=== PATIENT | male | born 1965 | race Caucasian/White ===

== ENCOUNTER 2018-01-14 18:34 | Emergency (ER) | payer MEDICARE, SELFPAY ==
[2018-01-14 18:40] VITALS: BP 151/94; PULSE 74; RESP 16; TEMP 36.7; O2SAT 97
--- NOTE | 2018-01-14 19:01 | DI.CT_ITS ---
SYMPTOM/DIAGNOSIS: HEADACHE, RT SIDED NECK PAIN NONCONTRAST HEAD CT: Comparison is made with 10/22/15. A noncontrast cranial CT was performed. The ventricular system is normal in appearance. There is no evidence of an intracranial mass lesion. There is no evidence of a subdural or epidural hematoma. No focal areas of decreased attenuation are seen. CONCLUSION: Normal noncontrast Cranial CT. CTA BRAIN: CT angiography was performed with multi slice acquisition and multi planar and 3D reconstruction. Routine examination was performed. FINDINGS: The right internal carotid artery is unremarkable without evidence of significant stenosis, occlusion or aneurysm. The anterior cerebral arteries are unremarkable without significant stenosis, occlusion or aneurysm. The middle cerebral arteries are unremarkable without significant stenosis, occlusion or aneurysm. The posterior cerebral arteries are unremarkable without significant stenosis, occlusion or aneurysm. Vertebral arteries and basilar artery are unremarkable without significant stenosis, occlusion or aneurysm. IMPRESSION: Normal CTA of the brain. NECK CTA: CT angiography was performed with multi slice acquisition and multi planar and 3D reconstruction. The common carotid arteries are unremarkable without evidence of dissection, occlusion or stenosis. The internal carotid arteries are unremarkable without evidence of dissection, occlusion or significant stenosis. The external carotid arteries are unremarkable without evidence of occlusion or significant stenosis. The vertebral arteries are unremarkable without evidence of dissection, occlusion or significant stenosis. No acute fracture or dislocation is seen. The soft tissues are unremarkable. IMPRESSION: Normal CTA of the neck.
--- NOTE | 2018-01-14 19:10 | W.ED.GENAD ---
Discharge Plan Disposition Patient Disposition: HOME Condition: Improving Discharge Details Chief Complaint: Headache Clinical Impression: Headache, tension-type, Acute torticollis, Anxiety about health Primary Care Provider: Francisca Sawyer ED Provider: Phil Adams Home Meds and New Rx's Prescriptions: Continue diazepam 2 MG tablet 1 - 2 mg PO daily prn 60 Days Qty: 30 RF: 0 duloxetine [Cymbalta] 20 MG capsule,delayed release(DR/EC) 20 mg PO DAILY Qty: 90 RF: 3 Discharge Instructions Instructions: Tension Headache (ED), Spasmodic Torticollis (ED), Anxiety (ED) Additional Instructions: Feel free to return to the emergency department for any new or worsening symptoms otherwise follow-up with your primary care provider in 1 week for reassessment. Referrals: Francisca Sawyer DO [Primary Care Provider] - 1 week () Discharge Data Discharge Date/Time-TO BE ENTERED AT DEPARTURE: 01/14/18 21:35 Medical Decision Making MDM Narrative Medical decision making narrative: Patient presenting to the emergency department for chief complaint of headache and right-sided neck pain. Patient states that this is been going on for the past month and he has been put on a muscle relaxer for his neck but today had a worsening headache and very brief visual disturbance of the left eye which is now resolved. Patient denies any injury or trauma does state that he is very anxious about the pain on the right side of his neck. Physical exam is unremarkable for any neurological respiratory or cardiac findings patient does have tenderness to palpation of the soft tissue of the right side of the neck. I feel this is most likely torticollis I do feel imaging is warranted to rule out dissection. Given patient stating that he is having significant worsening of right-sided neck pain, headache, with brief vision changes is now resolved to plan on performing a head CT, CTA head and neck, and labs. This is been going on for a month and patient states significant family stressors there is also consideration of continued torticollis that has been evaluated by primary care and tension migraine headache causing the other symptoms. Pending results patient given 1 L IV fluids, ketorolac, and Benadryl. After review of head CT shows no intracranial findings and labs which are unremarkable and nondiagnostic patient sent over for CTA of the neck. Pending results of CTA head and neck patient reassessed states that he is having improvement of his symptoms and only has a mild headache with some discomfort to the right eyebrow but that he is starting to feel better. Did discuss with patient coronary diagnosis of tension migraine right-sided torticollis and that he should continue to use his muscle relaxants as prescribed by primary care. Patient states hesitancy toward using these during the day because they make him feel off discussed with patient that he could change the regimen and take these at night before bed to see if this helps with his symptoms. Patient states he is willing to try this modality. Patient records does show that patient suffers from significant anxiety disorder patient was placed on duloxetine within the last month for his anxiety related to back pain and neck pain. CTA shows no acute findings. Patient reassessed again states comfortability with discharge home with diagnosis of tension headache, anxiety, and right-sided torticollis. Patient informed that he may return at any point for any new or worsening symptoms otherwise to continue to take his medication as prescribed. After discussion of diagnosis and plan of care patient states no further needs, questions, or concerns at this time. HPI General Date/Time Provider Initiated Documentation: 01/14/18 18:34. Limitations to Documentation: no limitations. Information obtained by: patient. History of Present Illness described as severe, with intensity rated at 9. Quality is described as sharp, and is localized to the head. Patient neck. Patient started experiencing this month(s) (1) and it has been constant. No relieving factors improve symptom(s), No exacerbating factors reported . Patient notes no other symptoms.. Patient did receive the following treatments prior to arrival, NSAID Related Data Previous Rx's Medication Instructions Recorded diazepam 1 - 2 mg PO daily prn 60 Days #30 11/09/17 tab-cap duloxetine [Cymbalta] 20 mg PO DAILY #90 tab-cap 12/07/17 Allergies Allergy/AdvReac Type Severity Reaction Status Date / Time acetaminophen [From Tylenol] AdvReac Intermediate Makes pt's Unverified 11/09/17 14:10 head feel strange. cyclobenzaprine AdvReac Intermediate stomach Unverified 11/09/17 14:10 [Cyclobenzaprine] upset meclizine AdvReac Intermediate Worse Unverified 11/09/17 14:10 vertigo ondansetron AdvReac Intermediate nausea, Unverified 11/09/17 14:10 vomiting oxycodone AdvReac Intermediate Wicked bad Unverified 11/09/17 14:10 constipation promethazine AdvReac Intermediate pt states Unverified 11/09/17 14:10 it made him puke violently and very sleepy codeine [Codeine] AdvReac Mild Nausea Unverified 11/09/17 14:10 paroxetine AdvReac Mild ?? self Unverified 11/09/17 14:10 discontinued General Stated Complaint: Headache GWENDOLYN: 3 Review of Systems Constitutional Denies chills, Denies fever(s), Reports headache(s), Denies lethargy and Denies malaise Eyes Patient Reports change in vision (now resolved) and Reports loss of vision (left eye, briefly now resolve) ENT Denies vertigo, Denies dizziness, Denies ear discharge, Reports headache(s), Denies mouth pain and Denies nasal congestion Cardiovascular Denies chest pain, Denies syncope, Reports radiating jaw, neck or arm pain (right side) and Denies dyspnea Respiratory Denies cough and Denies dyspnea Gastrointestinal Denies abdominal pain, Denies diarrhea, Reports nausea and Denies vomiting Musculoskeletal Reports myalgias (right side of neck) Neurologic Reports as per HPI, Denies abnormal movements, Denies abnormal speech, Denies confusion, Denies vertigo, Denies dizziness, Denies syncope, Reports headache(s) and Reports loss of vision (left eye, briefly now resolve) Psychiatric Reports abnormal sleep pattern, Reports anxiety, Denies confusion and Reports other (Severe family stress) PFSH Family History Mother Diabetes Pancreatic cancer Father Essential hypertension Heart disease Hernia Sister Substance abuse Brother No problems noted. Medical History Congenital hearing loss GERD (gastroesophageal reflux disease) Hiatal hernia Migraine Social History Smoking/Tobacco Use Status: Never Surgical History Arthrocentesis, intermediate joint Colonoscopy - MAC (03/25/16) EGD - MAC (03/25/16) Excision, Lipoma (11/18/16) Repair of umbilical hernia (11/18/16) Exam Const General: cooperative, in distress (holding head and right neck) moderate and not ill appearing Orientation: alert, awake and oriented x3 HENPR Head: normal to inspection Ears: external ears normal General nose exam: external nose normal Mouth: oral mucosae normal Throat: posterior oropharynx normal Eyes General: appearance normal, both eyes and all related structures Visual Pozo: normal visual pozo by confrontation Alignment and Position: alignment normal Periorbital: periorbital findings normal Eyelids: eyelids normal Conjunctivae: conjunctivae normal Sclera: sclerae normal Cornea: corneas normal Pupils: PERRL EOM: EOM intact bilaterally Direct ophthalmoscopy: normal light reflex Neck Neck: normal visual inspection, full ROM, no lymphadenopathy, no meningeal signs, trachea midline, supple, negative Brudzinski's sign, negative Kernig's sign, tender (right) and torticollis (right ) Carotids: normal carotid upstroke and no bruits Lymphatic: no lymphadenopathy noted Resp Effort & Inspection: normal respiratory effort, able to speak in complete sentences and not labored Auscultation: clear to auscultation bilaterally Cardio Rate: regular rate Rhythm: regular rhythm Heart Sounds: S1 normal and S2 normal Back/Spine/Pelvis Cervical Spine: cervical ROM normal, cervical muscular tenderness (right), No cervical spasm and No cervical spinal tenderness Neuro General: alert, awake, oriented x3, gait normal, tone normal, moves all extremities, normal light touch, pain and propioception, no meningeal signs, no focal motor deficits and CN's II-XI intact bilaterally Cognition: normal cognition Speech: speech normal Gait: normal gait Motor: muscle tone normal throughout Sensory Exam: no sensory deficits noted Psych Appearance: grossly normal Mental Status: mental status grossly normal Speech and Movement: speech and movement normal Mood: anxious mood Affect: animated Attitude: cooperative Thought Process: normal Thought Content: normal Insight: insight good Judgment: judgment good Course Vital Signs Temperature 36.7 C 01/14/18 18:40 Pulse 74 01/14/18 18:40 Respiratory Rate 16 01/14/18 18:40 Blood Pressure 151/94 H 01/14/18 18:40 Pulse Oximetry 97 01/14/18 18:40 Temperature 36.7 C 01/14/18 18:40 Pulse 74 01/14/18 18:40 Respiratory Rate 16 01/14/18 18:40 Blood Pressure 151/94 H 01/14/18 18:40 Pulse Oximetry 97 01/14/18 18:40
--- NOTE | 2018-01-14 19:18 | ED.GENADUL_ITS ---
Discharge Plan Disposition Patient Disposition: HOME Condition: Improving Discharge Details Chief Complaint: Headache Clinical Impression: Headache, tension-type, Acute torticollis, Anxiety about health Primary Care Provider: Francisca Sawyer ED Provider: Phil Adams Home Meds and New Rx's Prescriptions: Continue diazepam 2 MG tablet 1 - 2 mg PO daily prn 60 Days Qty: 30 RF: 0 duloxetine [Cymbalta] 20 MG capsule,delayed release(DR/EC) 20 mg PO DAILY Qty: 90 RF: 3 Discharge Instructions Instructions: Tension Headache (ED), Spasmodic Torticollis (ED), Anxiety (ED) Additional Instructions: Feel free to return to the emergency department for any new or worsening symptoms otherwise follow-up with your primary care provider in 1 week for reassessment. Referrals: Francisca Sawyer DO [Primary Care Provider] - 1 week () Discharge Data Discharge Date/Time-TO BE ENTERED AT DEPARTURE: 01/14/18 21:35 Medical Decision Making MDM Narrative Medical decision making narrative: Patient presenting to the emergency department for chief complaint of headache and right-sided neck pain. Patient states that this is been going on for the past month and he has been put on a muscle relaxer for his neck but today had a worsening headache and very brief visual disturbance of the left eye which is now resolved. Patient denies any injury or trauma does state that he is very anxious about the pain on the right side of his neck. Physical exam is unremarkable for any neurological respiratory or cardiac findings patient does have tenderness to palpation of the soft tissue of the right side of the neck. I feel this is most likely torticollis I do feel imaging is warranted to rule out dissection. Given patient stating that he is having significant worsening of right-sided neck pain , headache, with brief vision changes is now resolved to plan on performing a head CT, CTA head and neck, and labs. This is been going on for a month and patient states significant family stressors there is also consideration of continued torticollis that has been evaluated by primary care and tension migraine headache causing the other symptoms. Pending results patient given 1 L IV fluids, ketorolac, and Benadryl. After review of head CT shows no intracranial findings and labs which are unremarkable and nondiagnostic patient sent over for CTA of the neck. Pending results of CTA head and neck patient reassessed states that he is having improvement of his symptoms and only has a mild headache with some discomfort to the right eyebrow but that he is starting to feel better. Did discuss with patient coronary diagnosis of tension migraine right-sided torticollis and that he should continue to use his muscle relaxants as prescribed by primary care. Patient states hesitancy toward using these during the day because they make him feel off discussed with patient that he could change the regimen and take these at night before bed to see if this helps with his symptoms. Patient states he is willing to try this modality. Patient records does show that patient suffers from significant anxiety disorder patient was placed on duloxetine within the last month for his anxiety related to back pain and neck pain. CTA shows no acute findings. Patient reassessed again states comfortability with discharge home with diagnosis of tension headache, anxiety, and right- sided torticollis. Patient informed that he may return at any point for any new or worsening symptoms otherwise to continue to take his medication as prescribed. After discussion of diagnosis and plan of care patient states no further needs, questions, or concerns at this time. HPI General Date/Time Provider Initiated Documentation: 01/14/18 18:34 . Limitations to Documentation: no limitations . Information obtained by: patient . History of Present Illness described as severe, with intensity rated at 9. Quality is described as sharp, and is localized to the head. Patient neck. Patient started experiencing this month(s) (1) and it has been constant. No relieving factors improve symptom(s), No exacerbating factors reported . Patient notes no other symptoms.. Patient did receive the following treatments prior to arrival, NSAID Related Data Previous Rx's Medication Instructions Recorded diazepam 1 - 2 mg PO daily prn 60 Days #30 11/09/17 tab-cap duloxetine [Cymbalta] 20 mg PO DAILY #90 tab-cap 12/07/17 Allergies Allergy/AdvReac Type Severity Reaction Status Date / Time acetaminophen [From Tylenol] AdvReac Intermediate Makes pt's Unverified 14:10 head feel strange. cyclobenzaprine AdvReac Intermediate stomach Unverified 11/09/17 14:10 [Cyclobenzaprine] upset meclizine AdvReac Intermediate Worse Unverified 11/09/17 14:10 vertigo ondansetron AdvReac Intermediate nausea, Unverified 11/09/17 14:10 vomiting oxycodone AdvReac Intermediate Wicked bad Unverified 11/09/17 14:10 constipation promethazine AdvReac Intermediate pt states Unverified 11/09/17 14:10 it made him puke violently and very sleepy codeine [Codeine] AdvReac Mild Nausea Unverified 11/09/17 14:10 paroxetine AdvReac Mild ?? self Unverified 11/09/17 14:10 discontinued General Stated Complaint: Headache GWENDOLYN: 3 Review of Systems Constitutional Denies chills, Denies fever(s), Reports headache(s), Denies lethargy and Denies malaise Eyes Patient Reports change in vision (now resolved) and Reports loss of vision ( left eye, briefly now resolve) ENT Denies vertigo, Denies dizziness, Denies ear discharge, Reports headache(s), Denies mouth pain and Denies nasal congestion Cardiovascular Denies chest pain, Denies syncope, Reports radiating jaw, neck or arm pain ( right side) and Denies dyspnea Respiratory Denies cough and Denies dyspnea Gastrointestinal Denies abdominal pain, Denies diarrhea, Reports nausea and Denies vomiting Musculoskeletal Reports myalgias (right side of neck) Neurologic Reports as per HPI, Denies abnormal movements, Denies abnormal speech, Denies confusion, Denies vertigo, Denies dizziness, Denies syncope, Reports headache(s ) and Reports loss of vision (left eye, briefly now resolve) Psychiatric Reports abnormal sleep pattern, Reports anxiety, Denies confusion and Reports other (Severe family stress) PFSH Family History Mother Diabetes Pancreatic cancer Father Essential hypertension Heart disease Hernia Sister Substance abuse Brother No problems noted. Medical History Congenital hearing loss GERD (gastroesophageal reflux disease) Hiatal hernia Migraine Social History Smoking/Tobacco Use Status: Never Surgical History Arthrocentesis, intermediate joint Colonoscopy - MAC (03/25/16) EGD - MAC (03/25/16) Excision, Lipoma (11/18/16) Repair of umbilical hernia (11/18/16) Exam Const General: cooperative, in distress (holding head and right neck) moderate and not ill appearing Orientation: alert, awake and oriented x3 HENMN Head: normal to inspection Ears: external ears normal General nose exam: external nose normal Mouth: oral mucosae normal Throat: posterior oropharynx normal Eyes General: appearance normal, both eyes and all related structures Visual Pozo: normal visual pozo by confrontation Alignment and Position: alignment normal Periorbital: periorbital findings normal Eyelids: eyelids normal Conjunctivae: conjunctivae normal Sclera: sclerae normal Cornea: corneas normal Pupils: PERRL EOM: EOM intact bilaterally Direct ophthalmoscopy: normal light reflex Neck Neck: normal visual inspection, full ROM, no lymphadenopathy, no meningeal signs , trachea midline, supple, negative Brudzinski's sign, negative Kernig's sign, tender (right) and torticollis (right ) Carotids: normal carotid upstroke and no bruits Lymphatic: no lymphadenopathy noted Resp Effort & Inspection: normal respiratory effort, able to speak in complete sentences and not labored Auscultation: clear to auscultation bilaterally Cardio Rate: regular rate Rhythm: regular rhythm Heart Sounds: S1 normal and S2 normal Back/Spine/Pelvis Cervical Spine: cervical ROM normal, cervical muscular tenderness (right), No cervical spasm and No cervical spinal tenderness Neuro General: alert, awake, oriented x3, gait normal, tone normal, moves all extremities, normal light touch, pain and propioception, no meningeal signs, no focal motor deficits and CN's II-XI intact bilaterally Cognition: normal cognition Speech: speech normal Gait: normal gait Motor: muscle tone normal throughout Sensory Exam: no sensory deficits noted Psych Appearance: grossly normal Mental Status: mental status grossly normal Speech and Movement: speech and movement normal Mood: anxious mood Affect: animated Attitude: cooperative Thought Process: normal Thought Content: normal Insight: insight good Judgment: judgment good Course Vital Signs Temperature 36.7 C 01/14/18 18:40 Pulse 74 01/14/18 18:40 Respiratory Rate 16 01/14/18 18:40 Blood Pressure 151/94 H 01/14/18 18:40 Pulse Oximetry 97 01/14/18 18:40 Temperature 36.7 C 01/14/18 18:40 Pulse 74 01/14/18 18:40 Respiratory Rate 16 01/14/18 18:40 Blood Pressure 151/94 H 01/14/18 18:40 Pulse Oximetry 97 01/14/18 18:40
[2018-01-14] MEDS: Normal Saline 1,000 ML 1000 ML IV (19:21)
[2018-01-14 19:24] LABS: Abs Immature Grans 0.02 k/cumm (0.0-0.09); Absolute Basophil Count 0.02 k/cumm (0.0-0.2); Absolute Eosinophil Count 0.16 k/cumm (0.0-0.7); Absolute Lymphocyte Count 2.45 k/cumm (1.2-3.4); Absolute Monocyte Count 0.72 k/cumm (0.11-0.7); Basophils % 0.3; Eosinophils % 2.3; HCT 49.7 % (40.0-50.0); HGB 16.7 g/dL (13.5-17.5); Immature Grans % 0.3; Lymphocytes % 35.7; Mean Corp. HGB Concentration 33.6 g/dL (32.0-36.0); Mean Corpuscular Hemoglobin 28.2 pg (27.0-33.0); Mean Platelet Volume 10.3 fL (8.0-11.0); Monocytes % 10.5; Neutrophils % 50.9; Platelet Count 225 x1000/uL (130-400); RBC 5.92 m/cumm (4.50-6.00); RBC Distribution Width 13.5 % (11.8-14.1); White Blood Cell Count 6.87 k/cumm (4.4-10.8)
[2018-01-14] MEDS: Ketorolac 30 MG/ML VIAL IVP (19:24)
[2018-01-14] MEDS: diphenhydrAMINE 50 MG/ML VIAL 25 MG IVP (19:25)
[2018-01-14 19:36] LABS: ALT 25 U/L (12-78); AST 14 U/L (15-37); Alkaline Phosphatase 88 U/L (46-116); Anion Gap 6.8 mmol/L (3-11); BUN 18 mg/dL (7-18); Bilirubin, Total 0.4 mg/dL (0.2-1.0); CO2 29.2 mmol/L (21.0-32.0); CREATININE 1.05 mg/dL (0.70-1.30); Calcium 8.8 mg/dL (8.5-10.1); Chloride 104 mmol/L (98-107); Glucose 92 mg/dL (70-100); Potassium 4.1 mmol/L (3.5-5.1); Sodium 140 mmol/L (136-145); Total Protein 7.4 g/dL (6.4-8.2)
--- NOTE | 2018-01-14 20:00 | DI.VRAD_ITS ---
EXAM: CT Head Without Intravenous Contrast CLINICAL HISTORY: 52 years old, male; Pain; Headache; Headache not specified TECHNIQUE: Axial computed tomography images of the head/brain without intravenous contrast. All CT scans at this facility use at least one of these dose optimization techniques: automated exposure control; mA and/or kV adjustment per patient size (includes targeted exams where dose is matched to clinical indication); or iterative reconstruction. Coronal and sagittal reformatted images were created and reviewed. COMPARISON: CT HEAD WITHOUT CONTRAST 10/22/2015 10:25 AM FINDINGS: Brain: No evidence of acute intracranial bleed. No mass lesion or mass effect. Amaya/white matter differentiation is unremarkable. Cerebellum is unremarkable. Cisterns are unremarkable. Brainstem is unremarkable. No suprasellar mass. Ventricles: Unremarkable. No ventriculomegaly. Bones/joints: Unremarkable. No acute fracture. Soft tissues: Unremarkable. Sinuses: Unremarkable as visualized. No acute sinusitis. Mastoid air cells: Unremarkable as visualized. No mastoid effusion. IMPRESSION: No evidence of pathology. Dictated and Authenticated by: Mayra Heath MD. Ordering:LILI WINSLOW MD
[2018-01-14] MEDS: Omnipaque 350 MG/ML 100 ML BTL IJ (20:29)
--- NOTE | 2018-01-14 20:38 | DI.VRAD_ITS ---
EXAM: CT Angiography Head With Intravenous Contrast CLINICAL HISTORY: 52 years old, male; Pain; Headache; Patient HX: Headache, rt. Sided neck pain TECHNIQUE: Axial computed tomographic angiography images of the head with intravenous contrast using CT angiography protocol. All CT scans at this facility use at least one of these dose optimization techniques: automated exposure control; mA and/or kV adjustment per patient size (includes targeted exams where dose is matched to clinical indication); or iterative reconstruction. MIP reconstructed images were created and reviewed. CONTRAST: 85 mL of Omnipaque 350 administered intravenously. COMPARISON: No relevant prior studies available. FINDINGS: Right internal carotid artery: No evidence of acute pathology. Intracranial segment is patent with no significant stenosis. No aneurysm. Right anterior cerebral artery: Unremarkable. No occlusion or significant stenosis. No aneurysm. Right middle cerebral artery: Unremarkable. No occlusion or significant stenosis. No aneurysm. Right posterior cerebral artery: Unremarkable. No occlusion or significant stenosis. No aneurysm. Right vertebral artery: Unremarkable as visualized. Left internal carotid artery: No evidence of acute pathology. Intracranial segment is patent with no significant stenosis. No aneurysm. Left anterior cerebral artery: Unremarkable. No occlusion or significant stenosis. No aneurysm. Left middle cerebral artery: Unremarkable. No occlusion or significant stenosis. No aneurysm. Left posterior cerebral artery: Unremarkable. No occlusion or significant stenosis. No aneurysm. Left vertebral artery: Unremarkable as visualized. Basilar artery: Unremarkable. No occlusion or significant stenosis. No aneurysm. IMPRESSION: Normal head CTA. EXAM: CT Angiography Neck With Intravenous Contrast CLINICAL HISTORY: 52 years old, male; Pain; Headache; Patient HX: Headache, rt. Sided neck pain TECHNIQUE: Axial computed tomographic angiography images of the neck with intravenous contrast using CT angiography protocol. All CT scans at this facility use at least one of these dose optimization techniques: automated exposure control; mA and/or kV adjustment per patient size (includes targeted exams where dose is matched to clinical indication); or iterative reconstruction. MIP reconstructed images were created and reviewed. CONTRAST: 85 mL of Omnipaque 350 administered intravenously. 85 mL of Omnipaque 350 administered intravenously. COMPARISON: CTA BRAIN AND NECK 05/04/2015 12:56 PM FINDINGS: VASCULATURE: Right common carotid artery: Unremarkable. No significant stenosis. No dissection or occlusion. Right internal carotid artery: Unremarkable. Extracranial segment is patent with no significant stenosis. No dissection or occlusion. Right external carotid artery: Unremarkable. No occlusion. Right vertebral artery: Unremarkable. No significant stenosis. No dissection or occlusion. Left common carotid artery: Unremarkable. No significant stenosis. No dissection or occlusion. Left internal carotid artery: Unremarkable. Extracranial segment is patent with no significant stenosis. No dissection or occlusion. Left external carotid artery: Unremarkable. No occlusion. Left vertebral artery: Unremarkable. No significant stenosis. No dissection or occlusion. NECK: Bones/joints: No acute fracture. No dislocation. Soft tissues: Unremarkable as visualized. No mass. CAROTID STENOSIS REFERENCE USING NASCET CRITERIA: % ICA stenosis = (1 - narrowest ICA diameter/diameter of distal cervical ICA) x 100. Mild - <50% stenosis. Moderate - 50-69% stenosis. Severe - 70-94% stenosis. Near occlusion - 95-99% stenosis. Occluded - 100% stenosis. IMPRESSION: Normal neck CTA. Dictated and Authenticated by: Mayra Heath MD. Ordering:LILI WINSLOW MD
[2018-01-14 21:33] VITALS: BP 138/80; PULSE 88; RESP 18; TEMP 36.9; O2SAT 99
== END 2018-01-14 21:35 | disposition home or self-care (01) ==
PROVIDERS: Emergency Provider Nurse Practitioner Family; PCP Student in an Organized Health Care Education/Training Program
DX: G44.209 Tension-type headache, unspecified, not intractable (principal); M43.6 Torticollis; F41.1 Generalized anxiety disorder
CPT/HCPCS: 70496; 70498; 80053; 96374; 96375; 99285; 70450; 85025; 99284; J1200; J1885; J3490

== ENCOUNTER 2018-07-03 18:39 | Emergency (ER) | payer MEDICARE, SELFPAY ==
[2018-07-03 18:45] VITALS: BP 154/89; PULSE 79; RESP 16; TEMP 36.7; O2SAT 97
--- NOTE | 2018-07-03 19:47 | ED.GENADUL_ITS ---
Discharge Plan Disposition Patient Disposition: HOME Discharge Details Chief Complaint: RespSymp Clinical Impression: Bronchitis Primary Care Provider: Francisca Sawyer ED Provider: Adrian Morrison Home Meds and New Rx's Prescriptions: Continued diphenhydramine HCl [Benadryl] 25 mg capsule 25 mg PO Q4H PRNRF: 0 diazepam 2 mg tablet 1 mg PO daily prn MDD 1 tablet 60 Days Qty: 10 RF: 1 Discharge Instructions Instructions: Acute Bronchitis (ED) Additional Instructions: Please drink plenty of fluids and allow for plenty of rest. Please contact your primary care physician to arrange follow-up. Return to the ER for any worsening or new concerning symptoms. Referrals: Francisca Sawyer DO [Primary Care Provider] - Medical Decision Making 19:49 -- 53-year-old male here with productive cough for the past 3-4 days. Patient is currently homeless. Lungs clear no respiratory distress on exam. Saturating well. He does have a productive sounding cough. Plan to obtain chest x-ray to assess for pneumonia 20:12 --chest x-ray interpreted by me: No consolidation. Suspect bronchitis. No indication for antibiotics at this time. Usual customary discharge instructions were provided. HPI General Mode of arrival: ambulatory . Date/Time Provider Initiated Documentation: 07/03/18 19:14 . Limitations to Documentation: no limitations . Information obtained by: patient . HPI Narrative: 53-year-old male here with chief complaint of cough. Patient has had cough intermittently productive of yellow sputum for the past 3 days. Patient notes when he coughs it causes some discomfort in his ears bilaterally. He also has some upper abdominal pain from all the coughing. He denies associated shortness of breath or chest pain. Cough is been severe at times. No modifiers. No fever. Related Data Home Medications Medication Instructions Recorded Confirmed diphenhydramine 25 mg capsule 25 mg PO Q4H PRN 03/25/18 07/03/18 diazepam 2 mg tablet 1 mg PO daily prn 60 Days #10 04/02/18 07/03/18 tab-cap MDD 1 tablet Previous Rx's Medication Instructions Recorded diazepam 2 mg tablet 1 mg PO daily prn 60 Days #10 04/02/18 tab-cap MDD 1 tablet Allergies Allergy/AdvReac Type Severity Reaction Status Date / Time acetaminophen [From Tylenol] AdvReac Intermediate Makes pt's Unverified 07/03/18 18:48 head feel strange. cyclobenzaprine AdvReac Intermediate stomach Unverified 07/03/18 18:48 [Cyclobenzaprine] upset meclizine AdvReac Intermediate Worse Unverified 07/03/18 18:48 vertigo ondansetron AdvReac Intermediate nausea, Unverified 07/03/18 18:48 vomiting oxycodone AdvReac Intermediate Wicked bad Unverified 07/03/18 18:48 constipation promethazine AdvReac Intermediate pt states Unverified 07/03/18 18:48 it made him puke violently and very sleepy codeine [Codeine] AdvReac Mild Nausea Unverified 07/03/18 18:48 paroxetine AdvReac Mild ?? self Unverified 07/03/18 18:48 discontinued General Stated Complaint: RespSymp GWENDOLYN: 3 Review of Systems Review of Systems All systems reviewed & are unremarkable except as noted in HPI and below Constitutional Denies fever(s) Respiratory Reports cough PFSH Medical History Congenital hearing loss GERD (gastroesophageal reflux disease) Hiatal hernia Migraine Surgical History Arthrocentesis, intermediate joint Colonoscopy - MAC (03/25/16) EGD - MAC (03/25/16) Excision, Lipoma (11/18/16) Repair of umbilical hernia (11/18/16) Family History Mother Diabetes Pancreatic cancer Father Essential hypertension Heart disease Hernia Sister Substance abuse Brother No problems noted. Social History Smoking and Tabacco status: Never Exam Const General: cooperative and no acute distress HENMT Head: normocephalic and atraumatic Mouth: moist mucous membranes Eyes Conjunctivae: normal conjunctivae Sclera: normal sclerae Neck Neck: trachea midline and supple Resp Effort & Inspection: able to speak in complete sentences, cough and not labored Auscultation: clear to auscultation bilaterally, no rales, no rhonchi and no wheezes Cardio Jugular venous pressure: no JVD Rate: regular rate and not tachycardic Rhythm: regular rhythm GI Palpation: soft, not firm, no guarding, no masses, not rigid and nontender Neuro General: alert, awake and tone normal Extrem General: no edema Psych Appearance: grossly normal Course Vital Signs Temperature 36.7 C 07/03/18 18:45 Pulse 79 07/03/18 18:45 Respiratory Rate 16 07/03/18 18:45 Blood Pressure 154/89 H 07/03/18 18:45 Pulse Oximetry 97 07/03/18 18:45 Temperature 36.7 C 07/03/18 18:45 Temperature Source Skin 07/03/18 18:45 Pulse 79 07/03/18 18:45 Respiratory Rate 16 07/03/18 18:45 Respiratory Effort Non-Labored 07/03/18 18:49 Respiratory Depth Normal 07/03/18 18:49 Blood Pressure 154/89 H 07/03/18 18:45 Blood Pressure Position Sitting 07/03/18 18:45 Pulse Oximetry 97 07/03/18 18:45 Oxygen Delivery Method Room Air 07/03/18 18:45 Oxygen Flow Rate 0 07/03/18 18:45 Pain Level 0 07/03/18 18:45
--- NOTE | 2018-07-03 20:04 | DI.RAD_ITS ---
SYMPTOM/DIAGNOSIS: COUGH PA AND LATERAL CHEST: Comparison is made with 09/07/17. The heart is normal in size. The lungs are clear. The mediastinal structures and pleura appear intact. CONCLUSION: Normal chest.
--- NOTE | 2018-07-03 20:32 | DI.VRAD_ITS ---
EXAM: XR Chest, 2 Views EXAM DATE/TIME: 07/03/2018 8:04 PM CLINICAL HISTORY: 53 years old, male; Signs and symptoms; Cough; Patient HX: HX of pneumonia TECHNIQUE: XR of the chest, 2 views. COMPARISON: CR CHEST 2 VIEWS PA,LAT 09/07/2017 2:50 PM FINDINGS: Lungs: Unremarkable. No consolidation. Pleural space: Unremarkable. No pleural effusion. No pneumothorax. Heart/Mediastinum: Unremarkable. No cardiomegaly. Bones/joints: Chronic osseous changes. IMPRESSION: No acute cardiopulmonary findings. Dictated and Authenticated by: Gary Vincent MD. Ordering:ULICES Campbell MD
== END 2018-07-03 20:25 | disposition home or self-care (01) ==
PROVIDERS: Emergency Provider Student in an Organized Health Care Education/Training Program; PCP Student in an Organized Health Care Education/Training Program
DX: J20.9 Acute bronchitis, unspecified (principal); Z59.0 Homelessness
CPT/HCPCS: 99283; 71046

== ENCOUNTER 2018-10-12 07:05 | Emergency (ER) | payer MEDICARE, SELFPAY ==
[2018-10-12 07:13] VITALS: BP 131/84; PULSE 69; RESP 16; TEMP 37; O2SAT 99
[2018-10-12 07:23] VITALS: RESP 14
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
--- NOTE | 2018-10-12 07:35 | W.ED.GENAD ---
Discharge Plan Disposition Patient Disposition: HOME Condition: Stable Discharge Details Chief Complaint: Orthopedic Clinical Impression: Neck muscle spasm Primary Care Provider: Francisca Sawyer ED Provider: Alistair Modi Home Meds and New Rx's Prescriptions: New prednisone 20 mg tablet 40 mg PO DAILY 5 Days Qty: 10 RF: 0 lidocaine [Lidoderm] 5 % adhesive patch,medicated 1 patch TP DAILY PRN (Reason: pain) Qty: 15 RF: 0 Continued omeprazole 20 mg capsule,delayed release(DR/EC) 20 mg PO QAM Qty: 90 RF: 0 acetaminophen [Arthritis Pain Relief (acetam)] 650 mg tablet extended release 650 mg PO BID Qty: 28 RF: 0 ibuprofen 400 mg tablet 400 mg PO BID PRN (Reason: pain) Qty: 28 RF: 0 diazepam 2 mg tablet 1 - 2 mg PO DAILY PRN (Reason: muscle spasm) Qty: 4 RF: 0 Discharge Instructions Additional Instructions: Take prednisone as prescribed. Continue your previously prescribed medications. Remove Lidoderm patch in 12 hours time. May repeat Lidoderm patch once daily for 12 hours with 12 hours interval break. Follow-up with physical therapy. Return if you develop chest pain, rash, difficulty breathing, or any other acute concerns Stand Alone Forms: Physical Therapy Referral Medical Decision Making 53-year-old male who is struggled with right suprascapular and trapezius pain over months to years time. 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 Sometimes it improves with Valium, but worsened today and associated with feeling pulling on the right side of his neck. Patient's vital signs are unremarkable. His motor and sensory testing are normal. It is most consistent with muscular spasm. He may have a radicular component to the discomfort as well. We will trial a burst of prednisone, apply a Lidoderm patch, I will prescribe him physical therapy. He is pre-standing plans to follow-up in primary care clinic HPI General Mode of arrival: ambulatory. Date/Time Provider Initiated Documentation: 10/12/18 07:06. Limitations to Documentation: no limitations. Information obtained by: patient. History of Present Illness 53 year old M presents to the emergency department with the chief complaint of Right shoulder and right suprascapular pain, described as moderate and similar to prior episodes, Quality is described as constant, and is localized to the right and upper extremity. Patient reports no radiation. Patient started experiencing this day(s) and it has been constant. No relieving factors improve symptom(s), No exacerbating factors reported . Patient notes denies chest pain, fever/chills, rash and shortness of breath. Patient did receive the following treatments prior to arrival, NSAID and cold therapy Related Data Home Medications Medication Instructions Recorded Confirmed omeprazole 20 mg capsule,delayed 20 mg PO QAM #90 tab-cap 07/09/18 10/04/18 release acetaminophen ER 650 mg 650 mg PO BID #28 tab 10/04/18 10/04/18 tablet,extended release diazepam 2 mg tablet 1 - 2 mg PO DAILY PRN #4 tab 10/04/18 10/04/18 ibuprofen 400 mg tablet 400 mg PO BID PRN #28 tab 10/04/18 10/04/18 lidocaine [Lidoderm] 1 patch TP DAILY PRN #15 each 10/12/18 prednisone 40 mg PO DAILY 5 Days #10 tab 10/12/18 Previous Rx's Medication Instructions Recorded omeprazole 20 mg capsule,delayed 20 mg PO QAM #90 tab-cap 07/09/18 release acetaminophen ER 650 mg 650 mg PO BID #28 tab 10/04/18 tablet,extended release diazepam 2 mg tablet 1 - 2 mg PO DAILY PRN #4 tab 10/04/18 ibuprofen 400 mg tablet 400 mg PO BID PRN #28 tab 10/04/18 lidocaine [Lidoderm] 1 patch TP DAILY PRN #15 each 10/12/18 prednisone 40 mg PO DAILY 5 Days #10 tab 10/12/18 Allergies Allergy/AdvReac Type Severity Reaction Status Date / Time acetaminophen [From Tylenol] AdvReac Intermediate Makes pt's Verified 10/04/18 10:34 head feel strange. cyclobenzaprine AdvReac Intermediate stomach Verified 10/04/18 10:34 [Cyclobenzaprine] upset meclizine AdvReac Intermediate Worse Verified 10/04/18 10:34 vertigo ondansetron AdvReac Intermediate nausea, Verified 10/04/18 10:34 vomiting oxycodone AdvReac Intermediate Wicked bad Verified 10/04/18 10:34 constipation promethazine AdvReac Intermediate pt states Verified 10/04/18 10:34 it made him puke violently and very sleepy codeine [Codeine] AdvReac Mild Nausea Verified 10/04/18 10:34 paroxetine AdvReac Mild ?? self Verified 10/04/18 10:34 discontinued General Stated Complaint: GenMedical GWENDOLYN: 4 Review of Systems Review of Systems Similar episodes in the past. 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 No fever, chills, rash. 6 systems reviewed and otherwise night PFSH Medical History Migraine (Chronic) Congenital hearing loss (Chronic) GERD (gastroesophageal reflux disease) (Chronic) Hiatal hernia (Chronic) Surgical History Arthrocentesis, intermediate joint (Resolved) Colonoscopy - MAC (Resolved 03/25/16) EGD - MAC (Resolved 03/25/16) Excision, Lipoma (Resolved 11/18/16) Repair of umbilical hernia (Resolved 11/18/16) Family History Mother Diabetes Pancreatic cancer Father Essential hypertension Heart disease Hernia Sister Substance abuse Brother No problems noted. Social History Smoking/Tobacco Use Status: Never Drug use: Never Do you feel safe in your relationship?: Yes Exam Narrative Exam Narrative: GEN: awake, alert, oriented 3. Pleasant, well groomed, interactive. HEAD: Normocephalic, atraumatic ENT: Mucous membranes moist, oropharynx unremarkable, External ear exam unremarkable EYES: PERRL, EOMI NECK: Full ROM, no LISA, no menigismus, right paraspinous muscular tenderness along the supraspinatus. CHEST/RESP: Nontender, clear to auscultation bilateral, no wheeze/rhonchi/rales CARDIOVASCULAR: RRR, no murmur, rub divina. 2+ Rad pulse bilateral ABDOMEN: Soft, nontender, no mass. +Bowel sounds EXT: Full ROM, no edema, no rash. Motor 5 out of 5 in the bilateral upper extremity. Sensation intact throughout. Neuro: Grossly normal neurologic exam, conversant, interactive. Psych: Speech fluent, thoughts congruent, affect normal Course Vital Signs Temperature 37.0 C 10/12/18 07:13 Pulse 69 10/12/18 07:13 Respiratory Rate 16 10/12/18 07:13 Blood Pressure 131/84 10/12/18 07:13 Pulse Oximetry 99 10/12/18 07:13 Temperature 37.0 C 10/12/18 07:13 Temperature Source Temporal Artery Scan 10/12/18 07:13 Pulse 69 10/12/18 07:13 Respiratory Rate 14 10/12/18 07:23 Respiratory Effort 10/12/18 07:23 Respiratory Depth Normal 10/12/18 07:23 Blood Pressure 131/84 10/12/18 07:13 Pulse Oximetry 99 10/12/18 07:13 Oxygen Delivery Method Room Air 10/12/18 07:13 Oxygen Flow Rate 0 10/12/18 07:13 Pain Level 6 10/12/18 07:13 Comment 10/12/18 07:13
--- NOTE | 2018-10-12 07:39 | ED.GENADUL_ITS ---
Discharge Plan Disposition Patient Disposition: HOME Condition: Stable Discharge Details Chief Complaint: Orthopedic Clinical Impression: Neck muscle spasm Primary Care Provider: Francisca Sawyer ED Provider: Alistair Modi Home Meds and New Rx's Prescriptions: New prednisone 20 mg tablet 40 mg PO DAILY 5 Days Qty: 10 RF: 0 lidocaine [Lidoderm] 5 % adhesive patch,medicated 1 patch TP DAILY PRN (Reason: pain) Qty: 15 RF: 0 Continued omeprazole 20 mg capsule,delayed release(DR/EC) 20 mg PO QAM Qty: 90 RF: 0 acetaminophen [Arthritis Pain Relief (acetam)] 650 mg tablet extended release 650 mg PO BID Qty: 28 RF: 0 ibuprofen 400 mg tablet 400 mg PO BID PRN (Reason: pain) Qty: 28 RF: 0 diazepam 2 mg tablet 1 - 2 mg PO DAILY PRN (Reason: muscle spasm) Qty: 4 RF: 0 Discharge Instructions Additional Instructions: Take prednisone as prescribed. Continue your previously prescribed medications. Remove Lidoderm patch in 12 hours time. May repeat Lidoderm patch once daily for 12 hours with 12 hours interval break. Follow-up with physical therapy. Return if you develop chest pain, rash, difficulty breathing, or any other acute concerns Stand Alone Forms: Physical Therapy Referral Medical Decision Making 53-year-old male who is struggled with right suprascapular and trapezius pain over months to years time. 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 Sometimes it improves with Valium, but worsened today and associated with feeling pulling on the right side of his neck. Patient's vital signs are unremarkable. His motor and sensory testing are normal. It is most consistent with muscular spasm. He may have a radicular component to the discomfort as well. We will trial a burst of prednisone, apply a Lidoderm patch, I will prescribe him physical therapy. He is pre-standing plans to follow-up in primary care clinic HPI General Mode of arrival: ambulatory . Date/Time Provider Initiated Documentation: 10/12/18 07:06 . Limitations to Documentation: no limitations . Information obtained by: patient . History of Present Illness 53 year old M presents to the emergency department with the chief complaint of Right shoulder and right suprascapular pain, described as moderate and similar to prior episodes, Quality is described as constant, and is localized to the right an d upper extremity. Patient reports no radiation. Patient started experiencing this day(s) and it has been constant. No relieving factors improve symptom(s), No exacerbating factors reported . Patient notes denies chest pain, fever/chills, rash and shortness of breath. Patient did receive the following treatments prior to arrival, NSAID and cold therapy Related Data Home Medications Medication Instructions Recorded Confirmed omeprazole 20 mg capsule,delayed 20 mg PO QAM #90 tab-cap 07/09/18 10/04/18 release acetaminophen ER 650 mg 650 mg PO BID #28 tab 10/04/18 10/04/18 tablet,extended release diazepam 2 mg tablet 1 - 2 mg PO DAILY PRN #4 tab 10/04/18 10/04/18 ibuprofen 400 mg tablet 400 mg PO BID PRN #28 tab 10/04/18 10/04/18 lidocaine [Lidoderm] 1 patch TP DAILY PRN #15 each 10/12/18 prednisone 40 mg PO DAILY 5 Days #10 tab 10/12/18 Previous Rx's Medication Instructions Recorded omeprazole 20 mg capsule,delayed 20 mg PO QAM #90 tab-cap 07/09/18 release acetaminophen ER 650 mg 650 mg PO BID #28 tab 10/04/18 tablet,extended release diazepam 2 mg tablet 1 - 2 mg PO DAILY PRN #4 tab 10/04/18 ibuprofen 400 mg tablet 400 mg PO BID PRN #28 tab 10/04/18 lidocaine [Lidoderm] 1 patch TP DAILY PRN #15 each 10/12/18 prednisone 40 mg PO DAILY 5 Days #10 tab 10/12/18 Allergies Allergy/AdvReac Type Severity Reaction Status Date / Time acetaminophen [From Tylenol] AdvReac Intermediate Makes pt's Verified 10/04/18 10:34 head feel strange. cyclobenzaprine AdvReac Intermediate stomach Verified 10/04/18 10:34 [Cyclobenzaprine] upset meclizine AdvReac Intermediate Worse Verified 10/04/18 10:34 vertigo ondansetron AdvReac Intermediate nausea, Verified 10/04/18 10:34 vomiting oxycodone AdvReac Intermediate Wicked bad Verified 10/04/18 10:34 constipation promethazine AdvReac Intermediate pt states Verified 10/04/18 10:34 it made him puke violently and very sleepy codeine [Codeine] AdvReac Mild Nausea Verified 10/04/18 10:34 paroxetine AdvReac Mild ?? self Verified 10/04/18 10:34 discontinued General Stated Complaint: GenMedical GWENDOLYN: 4 Review of Systems Review of Systems Similar episodes in the past. 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 No fever, chills, rash. 6 systems reviewed and otherwise night PFS Medical History Migraine (Chronic) Congenital hearing loss (Chronic) GERD (gastroesophageal reflux disease) (Chronic) Hiatal hernia (Chronic) Surgical History Arthrocentesis, intermediate joint (Resolved) Colonoscopy - MAC (Resolved 03/25/16) EGD - MAC (Resolved 03/25/16) Excision, Lipoma (Resolved 11/18/16) Repair of umbilical hernia (Resolved 11/18/16) Family History Mother Diabetes Pancreatic cancer Father Essential hypertension Heart disease Hernia Sister Substance abuse Brother No problems noted. Social History Smoking/Tobacco Use Status: Never Drug use: Never Do you feel safe in your relationship?: Yes Exam Narrative Exam Narrative: GEN: awake, alert, oriented 3. Pleasant, well groomed, interactive. HEAD: Normocephalic, atraumatic ENT: Mucous membranes moist, oropharynx unremarkable, External ear exam unremarkable EYES: PERRL, EOMI NECK: Full ROM, no LISA, no menigismus, right paraspinous muscular tenderness along the supraspinatus. CHEST/RESP: Nontender, clear to auscultation bilateral, no wheeze/rhonchi/rales CARDIOVASCULAR: RRR, no murmur, rub divina. 2+ Rad pulse bilateral ABDOMEN: Soft, nontender, no mass. +Bowel sounds EXT: Full ROM, no edema, no rash. Motor 5 out of 5 in the bilateral upper extremity. Sensation intact throughout. Neuro: Grossly normal neurologic exam, conversant, interactive. Psych: Speech fluent, thoughts congruent, affect normal Course Vital Signs Temperature 37.0 C 10/12/18 07:13 Pulse 69 10/12/18 07:13 Respiratory Rate 16 10/12/18 07:13 Blood Pressure 131/84 10/12/18 07:13 Pulse Oximetry 99 10/12/18 07:13 Temperature 37.0 C 10/12/18 07:13 Temperature Source Temporal Artery Scan 10/12/18 07:13 Pulse 69 10/12/18 07:13 Respiratory Rate 14 10/12/18 07:23 Respiratory Effort 10/12/18 07:23 Respiratory Depth Normal 10/12/18 07:23 Blood Pressure 131/84 10/12/18 07:13 Pulse Oximetry 99 10/12/18 07:13 Oxygen Delivery Method Room Air 10/12/18 07:13 Oxygen Flow Rate 0 10/12/18 07:13 Pain Level 6 10/12/18 07:13 Comment 10/12/18 07:13
[2018-10-12] MEDS: Lidocaine 5% Patch 1 PATCH TP (07:46)
== END 2018-10-12 07:45 | disposition home or self-care (01) ==
PROVIDERS: Emergency Provider Emergency Medicine; PCP Student in an Organized Health Care Education/Training Program
DX: M62.838 Other muscle spasm (principal)
CPT/HCPCS: 99283

== ENCOUNTER → 2018-11-26 08:03 | Outpatient (BNVA) | payer MEDICARE, SELFPAY | PROVIDERS: PCP Student in an Organized Health Care Education/Training Program; Visit Provider Urology | DX: N52.9 Male erectile dysfunction, unspecified (principal) | CPT/HCPCS: 99213 ==

== ENCOUNTER 2019-01-10 15:00 | Outpatient (CLI) | payer MEDICARE, SELFPAY ==
--- NOTE | 2019-01-10 14:15 | DI.RAD_ITS ---
SYMPTOMS/DIAGNOSIS: COUGH, R05, PLEURODYNIA, R07.81, SCREEN FOR HIATAL HERNIA, DIAPHRAGMATIC HERNIA, K44.9, SENSATION OF HIATAL HERNIA RESTRICTING DEEP BREATH PA AND LATERAL CHEST: The lungs are well expanded and free of infiltrate. There is no pleural effusion. The cardiovascular structures appear intact. There are minimal degenerative changes involving the spine. SUMMARY: There is no evidence of acute cardiopulmonary disease aside from minimal degenerative changes involving the dorsal spine. The study is unremarkable.
== END 2019-01-10 15:20 ==
PROVIDERS: PCP Student in an Organized Health Care Education/Training Program; Visit Provider Student in an Organized Health Care Education/Training Program
DX: R05 Cough (principal); R07.81 Pleurodynia; K44.9 Diaphragmatic hernia without obstruction or gangrene
CPT/HCPCS: 71046

== ENCOUNTER 2019-01-31 01:22 | Outpatient (CLI) | payer MEDICARE, SELFPAY ==
--- NOTE | 2019-01-31 07:55 | DI.US_ITS ---
EXAM: US THYROID CLINICAL HISTORY: neck discomfort; thyroid tender when palpated. TECHNIQUE: Ultrasound performed using standard protocol. COMPARISON: US SOFT TISS ABD WALL/LOW BACK from 01/31/2019 FINDINGS: The right thyroid lobe measures 3.6 x 1.6 x 1.4 cm and is acoustically homogeneous. Isthmus is 4.6 m m in thickness. Left thyroid lobe measures 4.1 x 1.8 x 1.3 cm and is acoustically homogeneous. Note made of an avascular cyst, which measures 4.7 x 3.0 x 3.5 mm and is avascular in the midpole. IMPRESSION: The soft tissues of neck are unremarkable. Evaluation of the thyroid reveals a 4.7 by 3.0 x 3.[address], is otherwise unremarkable.
--- NOTE | 2019-01-31 07:55 | DI.US_ITS ---
EXAM: US ABDOMEN CLINICAL HISTORY: increased discomfort, tenderness. TECHNIQUE: Ultrasound performed using standard protocol. COMPARISON: Cardiac from 07/01/2017 FINDINGS: The aorta and vena cava are normal. The liver is normal. Hepatopetal flow is noted in the portal vein . Gallbladder is unremarkable. There is no evidence of ductal dilatation. The pancreas is normal. The spleen is normal. The kidneys are normal. There is no evidence of abdominal free fluid. IMPRESSION: Normal abdominal ultrasound.
--- NOTE | 2019-01-31 07:55 | DI.US_ITS ---
EXAM: US SOFT TISS ABD WALL/LOW BACK CLINICAL HISTORY: midback pain; feels a mass inside, hx lipomas. TECHNIQUE: Ultrasound performed using standard protocol. COMPARISON: US ABDOMEN from 01/31/2019 FINDINGS: No visible abnormality is demonstrated involving the tissues of the abdominal wall or lower back.
== END 2019-01-31 01:42 ==
PROVIDERS: PCP Student in an Organized Health Care Education/Training Program; Visit Provider Student in an Organized Health Care Education/Training Program
DX: K42.9 Umbilical hernia without obstruction or gangrene (principal); M54.89 Other dorsalgia; E07.89 Other specified disorders of thyroid; K44.9 Diaphragmatic hernia without obstruction or gangrene; M79.9 Soft tissue disorder, unspecified; M54.2 Cervicalgia; E04.1 Nontoxic single thyroid nodule; R10.817 Generalized abdominal tenderness
CPT/HCPCS: 76536; 76700; 76705

== ENCOUNTER 2019-03-18 08:10 | Outpatient (CLI) | payer MEDICARE, SELFPAY ==
[2019-03-18 10:02] LABS: ALT 42 U/L (16-63); AST 17 U/L (15-37); Alkaline Phosphatase 79 U/L (46-116); Anion Gap 8.2 mmol/L (3-11); BUN 19 mg/dL (7-18); Bilirubin, Total 0.6 mg/dL (0.2-1.0); CO2 25.8 mmol/L (21.0-32.0); CREATININE 1.11 mg/dL (0.70-1.30); Calcium 8.9 mg/dL (8.5-10.1); Chloride 106 mmol/L (98-107); Glucose 96 mg/dL (74-106); Potassium 4.4 mmol/L (3.5-5.1); Sodium 140 mmol/L (136-145)
[2019-03-21 06:50] LABS: Vitamin D 25 Total 31.5 ng/ml (30-100)
== END 2019-03-18 08:30 ==
PROVIDERS: PCP Student in an Organized Health Care Education/Training Program; Visit Provider Student in an Organized Health Care Education/Training Program
DX: R42 Dizziness and giddiness; K90.9 Intestinal malabsorption, unspecified; E86.0 Dehydration; K21.0 Gastro-esophageal reflux disease with esophagitis; M89.8X9 Other specified disorders of bone, unspecified site; G43.909 Migraine, unspecified, not intractable, without status migrainosus; Z86.39 Personal history of other endocrine, nutritional and metabolic disease
CPT/HCPCS: 36415; 80053; 82306

== ENCOUNTER 2019-04-20 19:11 | Emergency (ER) | payer MEDICARE, SELFPAY ==
[2019-04-20] VITALS (33 sets, daily range): BP systolic 141–182; BP diastolic 78–110; PULSE 71–104; RESP 13–26; TEMP 36.9; O2SAT 96–99
--- NOTE | 2019-04-20 19:36 | ED.GENADUL_ITS ---
Discharge Plan Disposition Patient Disposition: HOME Condition: Good Discharge Details Chief Complaint: Abd Prob Clinical Impression: Abdominal pain Primary Care Provider: Francisca Sawyer ED Provider: Mika Velasquez [place] Meds and New Rx's Prescriptions: Continued ibuprofen 400 mg tablet 400 mg PO BID PRN (Reason: pain) Qty: 28 RF: 0 diazepam 2 mg tablet 1 mg PO DAILY PRN (Reason: muscle spasm, vertigo) Qty: 10 RF: 1 ranitidine HCl 150 mg Capsule 150 mg PO PRN PRNRF: 0 Discontinued hydroxyzine pamoate [Vistaril] 25 mg capsule 25 mg PO BID PRN (Reason: nausea and vomiting, anxiety) Qty: 30 RF: 0 Discharge Instructions Instructions: Abdominal Pain (ED) Additional Instructions: Laboratory studies and imaging are unremarkable tonight. [place] diet for the next couple of days. Contact primary care for follow-up. Return to ED for fever, vomiting, worsening pain. Referrals: Francisca Sawyer DO [Primary Care Provider] - Medical Decision Making <Alistair Modi MD - Last Filed: 04/20/19 19:45> 54-year-old male presents from home with his son. He states that after eating sausage this evening approximately 10 to 15 minutes later he developed the abrupt onset of right upper quadrant epigastric pain that has been constant. Denies vomiting, has not had a fever. States that he has had previous abdominal hernia repair with mesh. Arrives a temp of 36, pulse is 103, he is hypertensive and in discomfort at 182/110. Differential diagnosis in includes gastritis, pancreatitis, biliary colic, bowel obstruction. IV access established, patient given fluid bolus, referred for laboratories, EKG, CT of the abdomen. Patient offered analgesia which he declined. As the patient was seen just prior to change of shift, he will be signed out to oncoming physician, Dr. Velasquez. Please see his note regarding details of the patient's diagnostic findings and final impression. ECG Data Attestation: I personally reviewed and interpreted this ECG (s) as follows: Interpretation: Normal sinus rhythm, rate of 79, the QRS is narrow, no ST segment elevations <Mika Velasquez MD - Last Filed: 04/20/19 22:32> Patient signed out to me after presenting with abdominal pain. Labs and imaging were pending. His laboratory studies are unremarkable. Liver function, lipase, white count normal. CT scan is also unremarkable with no acute process. On repeat abdominal exam patient is nontender and feels much better. Will discharge home to follow-up with primary care if not better in a few days. [place] diet for the next couple of days. Return to ED for fever, worsening pain, vomiting. Lab Data Lab results reviewed: Yes I reviewed the patient's lab results. HPI <Alistair Modi MD - Last Filed: 04/20/19 19:45> General Mode of arrival: ambulatory . Date/Time Provider Initiated Documentation: 04/20/19 19:23 . Limitations to Documentation: no limitations . Information obtained by: patient and family . History of Present Illness 54 year old M presents to the emergency department with the chief complaint of Right to epigastric abdominal pain this evening, described as moderate and severe, Quality is described as constant, and is localized to the abdomen. Patient abdomen. Patient started experiencing this hour(s) and it has been constant. No relieving factors improve symptom(s), No exacerbating factors reported . Patient notes loss of appetite; denies chest pain, fever/chills, nausea/vomiting and shortness of breath. Patient did receive the following treatments prior to arrival, other (Ranitidine at home) Related Data Home Medications Medication Instructions Recorded Confirmed ibuprofen 400 mg tablet 400 mg PO BID PRN #28 tab 10/04/18 04/20/19 diazepam 2 mg tablet 1 mg PO DAILY PRN #10 tab 03/22/19 04/20/19 ranitidine HCl 150 mg PO PRN PRN 04/20/19 04/20/19 Previous Rx's Medication Instructions Recorded ibuprofen 400 mg tablet 400 mg PO BID PRN #28 tab 10/04/18 diazepam 2 mg tablet 1 mg PO DAILY PRN #10 tab 03/22/19 Allergies Allergy/AdvReac Type Severity Reaction Status Date / Time acetaminophen [From Tylenol] AdvReac Intermediate Makes pt's Verified 04/20/19 19:21 head feel strange. cyclobenzaprine AdvReac Intermediate stomach Verified 04/20/19 19:21 [Cyclobenzaprine] upset meclizine AdvReac Intermediate Worse Verified 04/20/19 19:21 vertigo ondansetron AdvReac Intermediate nausea, Verified 04/20/19 19:21 vomiting oxycodone AdvReac Intermediate Wicked bad Verified 04/20/19 19:21 constipation promethazine AdvReac Intermediate pt states Verified 04/20/19 19:21 it made him puke violently and very sleepy codeine [Codeine] AdvReac Mild Nausea Verified 04/20/19 19:21 paroxetine AdvReac Mild ?? self Verified 04/20/19 19:21 discontinued General Stated Complaint: Abd Prob GWENDOLYN: 3 Review of Systems <Alistair Modi MD - Last Filed: 04/20/19 19:45> Narrative: Denies vomiting, no fever, no change to bowel or bladder habits. States he has abdominal mesh from previous hernia repair. 8 systems reviewed and otherwise negative PFSH <Alistair Modi MD - Last Filed: 04/20/19 19:45> Medical History Congenital hearing loss (Chronic) Hearing aid in R ear Erectile dysfunction (Acute) GERD (gastroesophageal reflux disease) (Chronic) Hiatal hernia (Chronic) Hx Dx per surgery (older Dr. Mazariegos), but that it needs to be reviewed carefully. Mild (?) but could cause future problems per pt recollection. 12/2018 Migraine (Chronic) Surgical History Arthrocentesis, intermediate joint (Resolved) Colonoscopy - MAC (Resolved 03/25/16) EGD - MAC (Resolved 03/25/16) Excision, Lipoma (Resolved 11/18/16) RIGHT BACK Repair of umbilical hernia (Resolved 11/18/16) Dr Mazariegos, [facility] Social History Smoking/Tobacco Use Status: Never Drug use: Never Do you feel safe in your relationship?: Yes Exam <Alistair Modi MD - Last Filed: 04/20/19 19:45> Narrative Exam Narrative: GEN: awake, alert, oriented 3. Pleasant, well groomed, interactive. HEAD: Normocephalic, atraumatic ENT: Mucous membranes moist, oropharynx unremarkable, External ear exam unremarkable EYES: PERRL, EOMI NECK: Full ROM, no LISA, no menigismus CHEST/RESP: Nontender, clear to auscultation bilateral, no wheeze/rhonchi/rales CARDIOVASCULAR: RRR, no murmur, rub divina. 2+ Rad pulse bilateral ABDOMEN: Soft, epigastric to right upper quadrant tenderness on palpation, no mass. +Bowel sounds EXT: Full ROM, no edema, no rash Neuro: Grossly normal neurologic exam, conversant, interactive. Psych: Speech fluent, thoughts congruent, affect normal Course <Alistair Modi MD - Last Filed: 04/20/19 19:45> Vital Signs Vital signs: Vital Signs Temperature 36.9 C 04/20/19 19:17 Pulse 103 H 04/20/19 19:17 Respiratory Rate 26 H 04/20/19 19:17 Blood Pressure 182/110 H 04/20/19 19:17 Pulse Oximetry 99 04/20/19 19:17 Temperature 36.9 C 04/20/19 19:17 Temperature Source Skin 04/20/19 19:17 Pulse 103 H 04/20/19 19:17 Respiratory Rate 26 H 04/20/19 19:17 Blood Pressure 182/110 H 04/20/19 19:17 Blood Pressure Position Sitting 04/20/19 19:17 Pulse Oximetry 99 04/20/19 19:17 Oxygen Delivery Method Room Air 04/20/19 19:17 Oxygen Flow Rate 0 04/20/19 19:17 Pain Level 10 04/20/19 19:17 Sign Out <Alistair Modi MD - Last Filed: 04/20/19 19:45> Sign Out Data: Sign Out Comment: see note Last updated by Alistair Modi MD at 04/20/19 20:02
[2019-04-20] MEDS: Normal Saline 1,000 ML 1000 ML IV (19:49)
[2019-04-20] MEDS: Breeza Beverage 473 ML BTL PO ×2 (19:54→19:55)
[2019-04-20] MEDS: Omnipaque 350 MG/ML 50 ML BTL PO (19:55)
[2019-04-20 20:02] LABS: Abs Immature Grans 0.01 k/cumm (0.0-0.09); Absolute Basophil Count 0.02 k/cumm (0.0-0.2); Absolute Eosinophil Count 0.32 k/cumm (0.0-0.7); Absolute Monocyte Count 0.61 k/cumm (0.11-0.7); Absolute Neutrophil Count 3.64 k/cumm (1.2-6.7); Basophils % 0.3; Eosinophils % 4.7; HGB 15.8 g/dL (13.5-17.5); Immature Grans % 0.1; Lymphocytes % 32.4; Mean Corp. HGB Concentration 33.6 g/dL (32.0-36.0); Mean Corpuscular Hemoglobin 28.6 pg (27.0-33.0); Mean Platelet Volume 10.5 fL (8.0-11.0); Neutrophils % 53.5; Platelet Count 219 x1000/uL (130-400); RBC 5.53 m/cumm (4.50-6.00); RBC Distribution Width 13.9 % (11.8-14.1)
--- NOTE | 2019-04-20 20:08 | NUR.NOTE ---
1950-Nursing Note: pt started drinking oral contrast without incident.
[2019-04-20 20:14] LABS: ALT 40 U/L (16-63); AST 20 U/L (15-37); Albumin 3.9 g/dL (3.4-5.0); Alkaline Phosphatase 81 U/L (46-116); Anion Gap 7.3 mmol/L (3-11); BUN 19 mg/dL (7-18); Bilirubin, Total 0.3 mg/dL (0.2-1.0); CO2 30.7 mmol/L (21.0-32.0); CREATININE 1.16 mg/dL (0.70-1.30); Calcium 8.7 mg/dL (8.5-10.1); Chloride 104 mmol/L (98-107); Glucose 135 mg/dL (74-106); Lipase 116 U/L (73-393); Magnesium 1.8 mg/dL (1.8-2.4); Potassium 4.2 mmol/L (3.5-5.1); Sodium 142 mmol/L (136-145); Total Protein 7.5 g/dL (6.4-8.2)
[2019-04-20 20:15] LABS: Troponin I < 0.05 ng/Ml (<0.06)
[2019-04-20] MEDS: Omnipaque 350 MG/ML 100 ML BTL IJ (21:32)
--- NOTE | 2019-04-20 21:35 | DI.CT_ITS ---
EXAM: CT ABDOMEN PELVIS W CLINICAL HISTORY: Right upper quadrant to epigastric pain, bloating. TECHNIQUE: Imaging Protocol: Axial computed tomography images with coronal and sagittal reformatted images were created and reviewed CONTRAST MATERIAL: Intravenous: Omnipaque 350 Contrast volume:100 mL contrast route:IV - Oral: Yes COMPARISON: ABD PELVIS WITH CONTRAST from 11/20/2016 CHEST FOR PULMONARY EMBOLUS from 05/13/2017 FINDINGS: ABDOMEN: Lung Bases: Normal where visualized. Liver: Normal density. Small cysts are seen throughout the liver. No suspicious hepatic mass is seen . The portal, superior mesenteric and splenic veins are patent. Gallbladder and biliary tract: No radiodense calculus or dilation. Pancreas: Normal density, no abnormal calcifications or inflammatory process. Spleen: Normal. Kidneys: Normal size, contour and axis. No radiodense stones or obstructive uropathy. No masses seen. Adrenal glands: No masses seen. Abdominal Aorta: Mild atherosclerosis. PELVIS: Bladder: Symmetric distention, no gross wall thickening. Bowel: There diverticulosis of the colon. No evidence of acute diverticulitis. No findings to sugge st an acute appendicitis. Peritoneal cavity: No ascites, collection or mesenteric inflammatory response. Bones: Within normal limits. Reproductive organs: Within normal limits. Lymph nodes: Unremarkable. Impression: No evidence of an acute abdomen or pelvis. DATA REPOSITORY: All CT scans at this facility are submitted to the National Radiology Data Registry (NRDR) Dose Index Registry (DIR) with the [employer] (ACR). RADIATION OPTIMIZATION: All CT scans at this facility use at least one of these dose optimization te chniques: automated exposure control; mA and/or kV adjustment per patient size (includes targeted exa ms where dose is matched to clinical indication); or iterative reconstruction.
--- NOTE | 2019-04-20 22:14 | DI.VRAD_ITS ---
PROCEDURE INFORMATION: Exam: CT Abdomen And Pelvis With Contrast Exam date and time: 04/20/2019 7:37 PM Age: 54 years old Clinical indication: Abdominal pain; Generalized; Prior surgery; Surgery date: 6+ months; Surgery type: Hernia mesh TECHNIQUE: Imaging protocol: Computed tomography of the abdomen and pelvis with intravenous contrast. Radiation optimization: All CT scans at this facility use at least one of these dose optimization techniques: automated exposure control; mA and/or kV adjustment per patient size (includes targeted exams where dose is matched to clinical indication); or iterative reconstruction. Contrast material: [id number]; Contrast volume: 100 ml; Contrast route: IV RAC 18G; COMPARISON: CT ABD PELVIS WITH CONTRAST 20/11/2016 08:52 FINDINGS: Mediastinum: Hiatal hernia. Liver: Stable subcentimeter hepatic cysts. Gallbladder and bile ducts: Normal. No calcified stones. No ductal dilation. Pancreas: Normal. No ductal dilation. Spleen: Normal. No splenomegaly. Adrenals: Normal. No mass. Kidneys and ureters: Stable prominent left extrarenal pelvis without change from prior study. Stomach and bowel: Diverticulosis of the sigmoid colon. Diverticulosis. Appendix: No evidence of appendicitis. Intraperitoneal space: Unremarkable. No free air. No significant fluid collection. Vasculature: Unremarkable. No abdominal aortic aneurysm. Lymph nodes: Unremarkable. No enlarged lymph nodes. Bladder: Distended urinary bladder to the L5 level. Reproductive: Unremarkable as visualized. Bones/joints: Stable sclerotic changes right femoral neck. Soft tissues: Postsurgical changes of the umbilicus. IMPRESSION: 1. No acute findings. 2. Distended urinary bladder to the level of L5 vertebral body. Dictated and Authenticated by: Kimmy Green MD. Ordering:KATERINA Sainz MD
== END 2019-04-20 22:35 | disposition home or self-care (01) ==
PROVIDERS: Emergency Medicine; Emergency Provider Emergency Medicine; PCP Student in an Organized Health Care Education/Training Program
DX: R10.13 Epigastric pain (principal); R10.11 Right upper quadrant pain
CPT/HCPCS: 36415; 80053; 83690; 93005; 96360; 99285; 74177; 83735; 84484; 85025; 93010; 99284; J3490; Q9967

== ENCOUNTER → 2019-04-29 13:15 | Outpatient (BNVA) | payer MEDICARE, SELFPAY | PROVIDERS: PCP Student in an Organized Health Care Education/Training Program; Referring Provider Student in an Organized Health Care Education/Training Program; Visit Provider Urology | DX: N52.9 Male erectile dysfunction, unspecified (principal); R10.10 Upper abdominal pain, unspecified; R36.9 Urethral discharge, unspecified | CPT/HCPCS: 99213 ==

== ENCOUNTER 2019-05-25 09:14 | Emergency (ER) | payer MEDICARE, SELFPAY ==
[2019-05-25 09:19] VITALS: BP 135/87; PULSE 79; RESP 15; TEMP 36.5; O2SAT 97
--- NOTE | 2019-05-25 09:29 | ED.GENADUL_ITS ---
Discharge Plan Disposition Patient Disposition: HOME Condition: Stable Discharge Details Chief Complaint: Nk/Back Pain Clinical Impression: Lumbar strain Primary Care Provider: Francisca Sawyer ED Provider: Alistair Modi Home Meds and New Rx's Prescriptions: New prednisone 20 mg tablet 40 mg PO DAILY 5 Days Qty: 10 RF: 0 Continued ibuprofen 400 mg tablet 400 mg PO BID PRN (Reason: pain) Qty: 28 RF: 0 diazepam 2 mg tablet 1 mg PO DAILY PRN (Reason: muscle spasm, vertigo) Qty: 10 RF: 1 ranitidine HCl 150 mg Capsule 150 mg PO PRN PRNRF: 0 Discharge Instructions Instructions: Low Back Strain (ED) Additional Instructions: Remove Lidoderm patch in 12 hours time. Take prednisone as prescribed. Continue your regular medications. Continue to hydrate liberally with small, frequent sips of fluids to maintain hydration. Return to the emergency department for worsening pain, weakness or numbness of the lower extremity, change to bowel or bladder habits, or any other acute concerns Medical Decision Making 54-year-old male presents from home stating he awoke with right lumbar pain that radiates down his right leg at times. It is constant but worse with sitting. He has had no weakness, numbness. He states normal urination this morning. He has pre-standing musculoskeletal neck and back issues and took some of his home diazepam 2 mg as well as ibuprofen this morning. He arrives with normal vital signs. He is tender overlying right flank and right costovertebral angle. Differential diagnosis includes muscular strain, lumbago, kidney stone/renal colic. Patient had taken ibuprofen and diazepam, he was referred for urinalysis with positive hematuria. Referred for CT images: No acute findings, see formal report. Following imaging, patient noted to be sitting comfortably in a chair, in no significant distress. We will treat as muscular strain/Lumbago. Given the radiating patient to the leg, he may benefit from a short burst of steroid. Lidoderm patch placed and he may obtain further as [id number] medicine. He is stable and appropriate for discharge to home at this time. HPI General Mode of arrival: ambulatory . Date/Time Provider Initiated Documentation: 05/25/19 09:15 . Limitations to Documentation: no limitations . Information obtained by: patient . History of Present Illness 54 year old M presents to the emergency department with the chief complaint of Right lumbar pain that began this morning, described as moderate and similar to prior episodes, Quality is described as dull and constant, and is localized to the back and right. Patient distal. Patient started experiencing this hour(s) and it has been constant. Rest improves symptom(s), Other factors that worsen symptoms (Worse when sitting) . Patient notes denies fever/chills, loss of appetite, nausea/vomiting, syncope and weakness. Patient did receive the following treatments prior to arrival, NSAID Related Data Home Medications Medication Instructions Recorded Confirmed ibuprofen 400 mg tablet 400 mg PO BID PRN #28 tab 10/04/18 05/25/19 ranitidine HCl 150 mg PO PRN PRN 04/20/19 05/25/19 diazepam 2 mg tablet 1 mg PO DAILY PRN #10 tab 05/18/19 05/25/19 prednisone 40 mg PO DAILY 5 Days #10 tab 05/25/19 Previous Rx's Medication Instructions Recorded ibuprofen 400 mg tablet 400 mg PO BID PRN #28 tab 10/04/18 diazepam 2 mg tablet 1 mg PO DAILY PRN #10 tab 05/18/19 prednisone 40 mg PO DAILY 5 Days #10 tab 05/25/19 Allergies Allergy/AdvReac Type Severity Reaction Status Date / Time acetaminophen [From Tylenol] AdvReac Intermediate Makes pt's Verified 05/25/19 09:24 head feel strange. cyclobenzaprine AdvReac Intermediate stomach Verified 05/25/19 09:24 [Cyclobenzaprine] upset meclizine AdvReac Intermediate Worse Verified 05/25/19 09:24 vertigo ondansetron AdvReac Intermediate nausea, Verified 05/25/19 09:24 vomiting oxycodone AdvReac Intermediate Wicked bad Verified 05/25/19 09:24 constipation promethazine AdvReac Intermediate pt states Verified 05/25/19 09:24 it made him puke violently and very sleepy codeine [Codeine] AdvReac Mild Nausea Verified 05/25/19 09:24 paroxetine AdvReac Mild ?? self Verified 05/25/19 09:24 discontinued General Stated Complaint: Nk/Back Pain GWENDOLYN: 4 Review of Systems Narrative: No weakness. No fall or injury. No numbness or tingling. No fever or chills. 6 systems reviewed and otherwise negative [facility] Medical History Congenital hearing loss (Chronic) Hearing aid in R ear Erectile dysfunction (Acute) GERD (gastroesophageal reflux disease) (Chronic) Hiatal hernia (Chronic) Hx Dx per surgery (older Dr. Mazariegos), but that it needs to be reviewed carefully. Mild (?) but could cause future problems per pt recollection. 12/2018 Migraine (Chronic) Social History Smoking/Tobacco Use Status: Never Alcohol Intake: never Drug use: Never Do you feel safe at home: Yes Do you feel safe in your relationship?: Yes Exam Narrative Exam Narrative: GEN: awake, alert, oriented 3. Pleasant, well groomed, interactive. HEAD: Normocephalic, atraumatic ENT: Mucous membranes moist, oropharynx unremarkable, External ear exam unremarkable with hearing aids in place EYES: PERRL, EOMI NECK: Full ROM, no LISA, no menigismus CHEST/RESP: Nontender, clear to auscultation bilateral, no wheeze/rhonchi/rales CARDIOVASCULAR: RRR, no murmur, rub divina. 2+ Rad pulse bilateral Back: Right high lumbar paraspinous muscular discomfort with palpation. There is no midline tenderness, step-off or deformity. EXT: Full ROM, no edema, no rash. Motor 5 out of 5, sensation intact throughout. 2+ patellar reflex. Neuro: Grossly normal neurologic exam, conversant, interactive. Psych: Speech fluent, thoughts congruent, affect normal Course Vital Signs Vital signs: Vital Signs Temperature 36.5 C 05/25/19 09:19 Pulse 79 05/25/19 09:19 Respiratory Rate 15 05/25/19 09:19 Blood Pressure 135/87 05/25/19 09:19 Pulse Oximetry 97 05/25/19 09:19 Temperature 36.5 C 05/25/19 09:19 Temperature Source Temporal Artery Scan 05/25/19 09:19 Pulse 79 05/25/19 09:19 Respiratory Rate 15 05/25/19 09:19 Respiratory Effort Non-Labored 05/25/19 09:22 Blood Pressure 135/87 05/25/19 09:19 Blood Pressure Position Sitting 05/25/19 09:19 Pulse Oximetry 97 05/25/19 09:19 Oxygen Delivery Method Room Air 05/25/19 09:19 Oxygen Flow Rate 0 05/25/19 09:19 Pain Level 8 05/25/19 09:23
[2019-05-25 09:39] LABS: Bilirubin Negative (Negative); Blood Trace-lysed (Negative); Clarity Clear (Clear); Glucose Negative (Negative); Ketones Negative (Negative); Leukocyte Esterase Negative (Negative); Nitrite Negative (Negative); Specific Gravity 1.025 (1.005-1.025); Urobilinogen 0.2 EU/dL (Up TO 0.2)
[2019-05-25 09:59] LABS: Bacteria Negative HPF (Negative); Crystals Negative HPF (Negative); Epithelial Cells Negative HPF (Negative); WBC 0-2 HPF (0-5)
[2019-05-25 10:00] LABS: C & S Indicated? No; Casts Negative LPF (Negative); Mucus Trace (Negative)
--- NOTE | 2019-05-25 10:15 | DI.CT_ITS ---
EXAM: CT ABDOMEN PELVIS WO CLINICAL HISTORY: Right flank pain, hematuria TECHNIQUE: Noncontrast COMPARISON: CT ABDOMEN PELVIS W from 04/20/2019 FINDINGS: The lung bases are clear. The heart size is normal. Several low density lesions are again noted in the liver, likely representing cysts. The gallbladder, spleen, pancreas and adrenals are unremarkab le. There are parapelvic renal cysts, greater on the left. No renal calculi or hydronephrosis is se en. The prostate is mildly enlarged. There is mild bladder wall thickening. Diverticulosis is note d in the sigmoid colon. There is no evidence of diverticulitis. The appendix appears normal. There is no gastric or small bowel dilatation. The aorta is normal in diameter. IMPRESSION: Parapelvic renal cysts, left greater than right. No renal calculi or hydronephrosis.
== END 2019-05-25 10:43 | disposition home or self-care (01) ==
PROVIDERS: Emergency Provider Emergency Medicine; PCP Student in an Organized Health Care Education/Training Program
DX: S39.012A Strain of muscle, fascia and tendon of lower back, initial encounter (principal); X58.XXXA Exposure to other specified factors, initial encounter
CPT/HCPCS: 99284; 74176; 81003; 81015; 99283

== ENCOUNTER 2019-05-31 19:15 | Emergency (ER) | payer MEDICARE, SELFPAY ==
[2019-05-31 19:26] VITALS: BP 146/91; PULSE 80; RESP 14; TEMP 36.7; O2SAT 97
--- NOTE | 2019-05-31 20:10 | ED.GENADUL_ITS ---
Discharge Plan Disposition Patient Disposition: HOME Condition: Good Discharge Details Chief Complaint: Nk/Back Pain Clinical Impression: Spasm of muscle of lower back Primary Care Provider: Francisca Sawyer ED Provider: Mika Velasquez Meds and New Rx's Prescriptions: New methocarbamol 500 mg tablet 1,000 mg PO QID Qty: 40 RF: 0 ibuprofen 600 mg tablet 600 mg PO TID Qty: 15 RF: 0 Changed ranitidine HCl 150 mg Capsule 150 mg PO BID Qty: 30 RF: 0 Discontinued ibuprofen 400 mg tablet 400 mg PO BID PRN (Reason: pain) Qty: 28 RF: 0 diazepam 2 mg tablet 1 mg PO DAILY PRN (Reason: muscle spasm, vertigo) Qty: 10 RF: 1 Discharge Instructions Instructions: Muscle Spasm (ED) Additional Instructions: Discontinue the diazepam and start using the methocarbamol for spasm. Change ibuprofen dose to 600 mg three times a day with food. Take ranitidine twice a day for stomach while taking the ibuprofen. Try heat and gentle stretching to help loosen up muscles. Massage may help as well. Contact your PCP for follow up. Return to ED for bladder or bowel problems, weakness in legs, numbness in legs, fever, other concerns. Referrals: Francisca Sawyer DO [Primary Care Provider] - Discharge Data Discharge Date/Time-TO BE ENTERED AT DEPARTURE: 05/31/19 20:45 Medical Decision Making Patient with continued spasm and pain in the lower back. Seen last week for same. Stone study CT at that time negative. Has followed up with chiropractic not but not primary care. Reports that the diazepam and ibuprofen is not helping. Lidocaine patches do not seem to help. Does not want narcotics because they make him ill. Wants to try something else for spasm. Will discontinue the diazepam. Will start methocarbamol. Continue ibuprofen 3 times a day with food and be sure to take his ranitidine twice a day while doing so. Gentle stretching and heat recommended. Follow-up with primary care. Return to ED for any neurologic changes, bladder or bowel dysfunction, fever, other concerns or problems. Medical Records Medical records reviewed: Yes I reviewed the patient's medical records. HPI General Mode of arrival: ambulatory . Date/Time Provider Initiated Documentation: 05/31/19 19:37 . Limitations to Documentation: no limitations . Information obtained by: patient, RN notes reviewed and old records reviewed . HPI Narrative: Patient presents to ED with continued lower back pain. Patient seen here last week for same. Stone study negative. [place] to be lumbar strain and has been using diazepam, ibuprofen. He was placed on a prednisone burst. He has not followed up with primary care but did see his chiropractor today. He occasionally has some sharp shooting pain down the back of his leg on occasion but not consistently. There is no bladder or bowel dysfunction. There is no numbness or weakness. Reports the pain as being upper to mid lumbar area. No abdominal pain. No vomiting or diarrhea. He has been Jorge L bandage holding ice to his right lower lumbar area but reports the pain being up higher and more central. Related Data Home Medications Medication Instructions Recorded Confirmed ibuprofen 600 mg PO TID #15 tab 05/31/19 methocarbamol 1,000 mg PO QID #40 tab 05/31/19 ranitidine HCl 150 mg PO BID #30 tab 05/31/19 Previous Rx's Medication Instructions Recorded ibuprofen 600 mg PO TID #15 tab 05/31/19 methocarbamol 1,000 mg PO QID #40 tab 05/31/19 ranitidine HCl 150 mg PO BID #30 tab 05/31/19 Allergies Allergy/AdvReac Type Severity Reaction Status Date / Time acetaminophen [From Tylenol] AdvReac Intermediate Makes pt's Verified 05/25/19 09:24 head feel strange. cyclobenzaprine AdvReac Intermediate stomach Verified 05/25/19 09:24 [Cyclobenzaprine] upset meclizine AdvReac Intermediate Worse Verified 05/25/19 09:24 vertigo ondansetron AdvReac Intermediate nausea, Verified 05/25/19 09:24 vomiting oxycodone AdvReac Intermediate Wicked bad Verified 05/25/19 09:24 constipation promethazine AdvReac Intermediate pt states Verified 05/25/19 09:24 it made him puke violently and very sleepy codeine [Codeine] AdvReac Mild Nausea Verified 05/25/19 09:24 paroxetine AdvReac Mild ?? self Verified 05/25/19 09:24 discontinued General Stated Complaint: Nk/Back Pain GWENDOLYN: 4 Review of Systems Narrative: As documented in HPI otherwise negative as below. Const: no fever, chills, weakness Resp: no cough, SOB, pleuritic pain CV: no CP, diaphoresis, edema, syncope GI: no abdominal pain, nausea, vomiting, diarrhea Neuro: no headache, numbness, focal weakness, confusion PFSH Social History Smoking/Tobacco Use Status: Never Alcohol Intake: never Drug use: Never Substance use type: does not use Do you feel safe at home: Yes Do you feel safe in your relationship?: Yes Exam Narrative Exam Narrative: Vitals: Afebrile. Slight elevated blood pressure otherwise normal vitals and room air pulse ox. Const: WDWN male in NAD. HEENT: NC/AT. Normal facial exam. Eyes: Normal conjunctiva and sclera. Neck: Supple. Trachea midline. Lungs: Normal respiratory effort. Back: No CVAT. Limited ROM of lower back due to pain. No spine tenderness. Upper to mid lumbar paraspinal spasm and tenderness noted. Neuro: A+O x 3. Normal speech, mentation, gait. Cranial nerves II - XII grossly intact. No gross motor or sensory deficit. Normal strength and sensation in LE. Skin: Warm and dry without rash. Course Vital Signs Vital signs: Vital Signs Temperature 98.1 F 05/31/19 19:26 Pulse 80 05/31/19 19:26 Respiratory Rate 14 05/31/19 19:26 Blood Pressure 146/91 H 05/31/19 19:26 Pulse Oximetry 97 05/31/19 19:26 Temperature 98.1 F 05/31/19 19:26 Temperature Source Tympanic 05/31/19 19:26 Pulse 80 05/31/19 19:26 Respiratory Rate 14 05/31/19 19:26 Respiratory Effort Non-Labored 05/31/19 19:30 Blood Pressure 146/91 H 05/31/19 19:26 Pulse Oximetry 97 05/31/19 19:26 Oxygen Delivery Method Room Air 05/31/19 19:26 Oxygen Flow Rate 0 05/31/19 19:26 Pain Level 10 05/31/19 19:30 Comment 05/31/19 19:26
[2019-05-31] MEDS: Methocarbamol 500 MG TAB 1000 MG PO (20:46)
--- NOTE | 2019-05-31 20:47 | NUR.NOTE ---
Nursing Note: Per MD order. PT DC with Hilario. Instructions with teach back provided prior to DC.
== END 2019-05-31 20:45 | disposition home or self-care (01) ==
PROVIDERS: Emergency Provider Emergency Medicine; PCP Student in an Organized Health Care Education/Training Program
DX: M62.830 Muscle spasm of back (principal)
CPT/HCPCS: 99283

== ENCOUNTER 2020-07-05 03:23 | Outpatient (CLI) | payer MEDICARE, SELFPAY ==
[2020-07-05 12:09] LABS: HCT 49.6 % (40.0-50.0); HGB 16.3 g/dL (13.5-17.5); MCH 28.4 pg (27.0-33.0); MCHC 32.9 % (32.0-36.0); MCV 86.4 fL (80-95); Platelet Count 218 10^3/uL (130-400); RBC 5.74 10^6/uL (4.36-5.78); RDW 13.4 % (11.8-14.1); RDW-SD 42.8 fL; WBC 7.77 10^3/uL (4.4-10.8)
[2020-07-05 12:43] LABS: ALT 48 U/L (16-63); AST 18 U/L (15-37); Albumin 4.1 g/dL (3.4-5.0); Alkaline Phosphatase 79 U/L (46-116); Anion Gap 6.8 mmol/L (3-11); BUN 18 mg/dL (7-18); Bilirubin, Total 0.5 mg/dL (0.2-1.0); CO2 30.2 mmol/L (21.0-32.0); CREATININE 1.2 mg/dL (0.70-1.30); Calcium 9.3 mg/dL (8.5-10.1); Calculated LDL 180 mg/dL (<100); Chloride 103 mmol/L (98-107); Cholesterol 258 mg/dL (<200); Glucose 82 mg/dL (74-106); HDL Cholesterol 53 mg/dL (40-60); Potassium 4.7 mmol/L (3.5-5.1); Sodium 140 mmol/L (136-145); Total Protein 7.5 g/dL (6.4-8.2); Triglyceride 125 mg/dL (<150)
== END 2020-07-05 03:24 | disposition home or self-care (01) ==
LOC: LOS 03:24
PROVIDERS: PCP Student in an Organized Health Care Education/Training Program; Visit Provider Student in an Organized Health Care Education/Training Program
DX: E78.2 Mixed hyperlipidemia (principal); R42 Dizziness and giddiness; M79.18 Myalgia, other site
CPT/HCPCS: 36415; 80053; 80061; 85027

== ENCOUNTER 2020-07-16 03:25 | Outpatient (CLI) | payer MEDICARE, SELFPAY ==
[2020-07-16 10:08] LABS: Source Nasal/Nares
[2020-07-16 12:35] LABS: COVID-19 PCR Negative (Negative)
== END 2020-07-16 03:26 | disposition home or self-care (01) ==
LOC: LBO 03:26
PROVIDERS: PCP Student in an Organized Health Care Education/Training Program; Visit Provider Family Medicine
DX: Z20.822 Contact with and (suspected) exposure to COVID-19 (principal); Z01.818 Encounter for other preprocedural examination
CPT/HCPCS: 87635

== ENCOUNTER 2020-07-17 01:45 | Outpatient (CLI) | payer MEDICARE, SELFPAY ==
--- NOTE | 2020-07-17 07:15 | DI.US_ITS ---
EXAM: US CAROTID CLINICAL HISTORY: dizziness,vertigo,r42. TECHNIQUE: Ultrasound carotids performed using grayscale, color-flow, and spectral Doppler imaging. COMPARISON: No exams were available for comparison FINDINGS: RIGHT CAROTID ARTERY: Plaque: None Velocity elevation: None. LEFT CAROTID ARTERY: Plaque: Soft plaque in the left carotid bulb. Velocity elevation: None. VERTEBRAL ARTERIES: Antegrade flow. Measurements: R Bulb: 91.3cm/s PS / 23.1cm/s ED R CCA: 97.7cm/s PS / 21.2cm/s ED R ECA: 122.1cm/s PS / 24.4cm/s ED R ICA Prox: 76.8cm/s PS /24.8cm/s ED R ICA Mid: 81.8cm/s PS / 32.2cm/s ED R ICA Distal: 108.2cm/s PS /37.2cm/s ED R Vert: 45.7cm/s PS / 14.5cm/s ED R SVR: 1.11 R DVR: 1.75 L Bulb: 90.4cm/s PS /24.6cm/s ED L CCA: 111.3cm/s PS / 30.4cm/s ED L ECA: 118.6cm/s PS /23.9cm/s ED L ICA Prox:96.9cm/s PS / 26.8cm/s ED L ICA Mid: 86.8cm/sPS / 30.4cm/s ED L ICA Distal: 75.2cm/s PS / 28.9cm/s ED L Vert: 59.3cm/s PS / 16.6cm/s ED L SVR: 0.87 L DVR: 0.88 IMPRESSION: No evidence for hemodynamically significant carotid stenosis. Criteria for Carotid Stenosis: Normal: ICA PSV <125 cm/s no plaque or intimal thickening is visible. <50% stenosis: ICA PSV <125 cm/s and plaque or intimal thickening is visible. 50-69% stenosis: ICA PSV is 125-250 cm/s and plaque is visible. >70% stenosis to near occlusion: ICA PSV >250 cm/s with visible plaque and luminal narrowing. DATA REPOSITORY:
== END 2020-07-17 02:05 ==
PROVIDERS: PCP Student in an Organized Health Care Education/Training Program; Visit Provider Student in an Organized Health Care Education/Training Program
DX: R42 Dizziness and giddiness (principal); R06.02 Shortness of breath; R06.09 Other forms of dyspnea
CPT/HCPCS: 94060; 93880

== ENCOUNTER 2020-07-17 04:03 | Outpatient (CLI) | payer MEDICARE, SELFPAY ==
[2020-07-17] MEDS: Inhaler, Assist Device 1 EACH MC (11:24)
[2020-07-17] MEDS: Albuterol HFA 18 GM 200 PUFF INH IH (11:24)
--- NOTE | 2020-07-23 16:27 | W.PFT ---
Date of service: 07/17/20 Time of Service: 10:09 Pulmonary Function Test Result Interpretation Spirometry: No evidence of obstructive airways disease, no bronchodilator response Impression Normal spirometry Clinical Correlation therefore is recommended.
== END 2020-07-17 04:04 | disposition home or self-care (01) ==
LOC: RT 04:03
PROVIDERS: PCP Student in an Organized Health Care Education/Training Program; Visit Provider Student in an Organized Health Care Education/Training Program
DX: R06.02 Shortness of breath (principal); R06.09 Other forms of dyspnea
CPT/HCPCS: 94060

== ENCOUNTER → 2020-08-21 09:09 | Outpatient (BNVA) | payer MEDICARE, SELFPAY | PROVIDERS: PCP Student in an Organized Health Care Education/Training Program; Referring Provider Student in an Organized Health Care Education/Training Program; Visit Provider Surgery | DX: K21.9 Gastro-esophageal reflux disease without esophagitis (principal); M62.08 Separation of muscle (nontraumatic), other site | CPT/HCPCS: 99203; 99215 ==

== ENCOUNTER 2020-11-21 02:46 | Outpatient (CLI) | payer MEDICARE, SELFPAY ==
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
--- NOTE | 2020-11-21 08:00 | DI.RAD_ITS ---
Exam(s) XR SACRUM COCCYX EXAM: XR SACRUM COCCYX CLINICAL HISTORY: r/o Fx, evaluate spacing, r/o bony path,ACUTE COCCYGEAL PAIN,M53.3. TECHNIQUE: 2D digital imaging was performed. COMPARISON: No exams were available for comparison FINDINGS: No evidence of fracture. No osseous lesion. No radiopaque foreign body. No obvious radiographic ev idence of osteomyelitis. IMPRESSION: No significant radiograph findings in the sacrum and coccyx. DATA REPOSITORY: RADIATION DOSE DELIVERED:
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
--- NOTE | 2020-11-21 16:47 | DI.VRAD_ITS ---
PROCEDURE INFORMATION: Exam: XR Sacrum and Coccyx, 2 or More Views Exam date and time: 11/21/2020 8:01 AM Age: 55 years old Clinical indication: Other: Evaluate spacing, ; patient HX: R/O bony path, acute coccygeal pain TECHNIQUE: Imaging protocol: XR of the sacrum and coccyx, 2 or more views. Total images: 4 COMPARISON: No relevant prior studies available. FINDINGS: Bones/joints: Normal. No acute fracture. Soft tissues: Normal. IMPRESSION: No acute findings. Dictated and Authenticated by: Pete Moore MD. Ordering:MALENA Espinosa MD
== END 2020-11-21 03:06 ==
LOC: PRC 02:47 → DI 08:00
PROVIDERS: PCP Student in an Organized Health Care Education/Training Program; Visit Provider Student in an Organized Health Care Education/Training Program
DX: R04.2 Hemoptysis (principal); M53.3 Sacrococcygeal disorders, not elsewhere classified; Z03.89 Encounter for observation for other suspected diseases and conditions ruled out
CPT/HCPCS: 71046; 72220

== ENCOUNTER 2021-03-19 00:10 | Outpatient (CLI) | payer MEDICARE, SELFPAY ==
--- NOTE | 2021-03-19 09:00 | ETT_ITS ---
APPROVED REPORT Exam: Exercise Treadmill Patient Location: Out-Patient Room/Bed: Stress Nurse: Tiffany Crespo RN Ordering Provider:ZOË WHITE, Contact Number: [phone] BMI: 30.26 Baseline Rhythm: Sinus Rhythm Comment: slight diffuse ST elevations Indications: SOB, FAMILY H/O ASCVD, INCREASED BLOOD PRESSURE Medical History Medical History: Dizzines, ED, Migraines, GERD, Hiatal hernia, Congenital hearing loss, Raynauds synd yayo, HLD, Anxiety Cardiac Medications: None, Allergies: Codeine, Oxycodone, Acetaminophen, Paroxetine, Promethazine, Cyclobenzaprine, Meclizine, O ndansetron Cardiac Risk Factors: FHX of CAD, Hyperlipidemia Previous Cardiac Procedures: None Pretest Chest Pain Characteristics: No chest pain, no dyspnea Exercise History: Physically active (walks often) Physical Disabilities: None Lung Sounds: Clear to auscultation Heart Sounds: Regular Stress Test Details Test: Exercise stress testing was performed using a Malik protocol. Rest Stress HR Resting HR Supine: 77 bpm Max Heart Rate (APMHR): 164 bpm Resting HR Standin bpm Target HR (85% APMHR): 139 bpm Max HR Achieved: 141 bpm % of APMHR: 85 Recovery HR: 94 bpm HR response to stress: Normal HR response to stress BP Resting BP Supine: 148/90 mmHg Resting BP Standin/90 mmHg Max BP: 202/92 mmHg Recovery BP: 164/84 mmHg BP response to stress: Normal blood pressure response to stress. ECG Resting ECG: Sinus Rhythm, mild diffuse ST elevations Ectopy: none Stress ECG: Sinus Tachycardia ST Change: No significant ST segment changes noted Arrhythmia: PACs Recovery ECG: Sinus Rhythm Recovery ST Change: No significant ST segment changes noted Recovery Arrhythmia: frequent PACs Clinical Reason for Termination: Leg fatigue, leg cramping Stress Symptoms: Leg tightness and cramping, Head pounding Exercise duration: 5 min3 sec Exercise capacity: 7.05 METs Petersen Treadmill Score: 4 Rate Pressure Product: 19308 Stress ECG Conclusion 1. Resting electrocardiogram showed voltage for left ventricular hypertrophy 2. Patient exercised on a Malik protocol and completed a workload of 7.05 METS, limited by leg tightn ess and cramping, head pounding 3. Normal hemodynamic response to exercise. The patient achieved 85% of predicted heart rate for age 4. Electrocardiographically the test was negative for myocardial ischemia 5. Frequent atrial premature beats were noted Petersen Treadmill Score is 4 which is Moderate risk. Stress Test Summary STAGE Time (mins) Speed (mph) Grade (%) HR BP SYMPTOMS METS Supine 77 148/90 Standing 79 150/90 1 3 1.7 10 115 159/92 98%; leg cramps 4.6 1 min recovery 126 202/92 98% 3 min recovery 96 184/82 6 min recovery 94 164/84 Patient denies exertional dyspnea during test. Exercise limited by leg cramping.
== END 2021-03-19 00:30 ==
PROVIDERS: PCP Student in an Organized Health Care Education/Training Program; Visit Provider Student in an Organized Health Care Education/Training Program
DX: R06.02 Shortness of breath (principal); R03.0 Elevated blood-pressure reading, without diagnosis of hypertension; Z82.49 Family history of ischemic heart disease and other diseases of the circulatory system; E78.5 Hyperlipidemia, unspecified; I51.7 Cardiomegaly; I49.1 Atrial premature depolarization
CPT/HCPCS: 93016; 93018; 93017

== ENCOUNTER 2021-05-23 02:11 | Outpatient (CLI) | payer MEDICARE, SELFPAY ==
--- NOTE | 2021-05-23 11:30 | DI.US_ITS ---
APPROVED REPORT EXAM: Comprehensive 2D, Doppler, and color-flow Echocardiogram Patient Location: Out-Patient Hospitality Aide: Maria Ines Jones RDCS (AE) Indications: SOB, family history of ischemic heart disease Other Information Study Quality: Adequate Conclusion Normal left ventricular wall thickness and chamber size. Estimated ejection fraction is 60%. Wall m otion is normal Normal right ventricular size and systolic function Both atria are normal in size There is no structural or hemodynamically significant valvular disease Wall motion Left Ventricle The left ventricle is normal size. The left ventricular systolic function is normal. The left ventric ular ejection fraction is within the normal range. There is normal left ventricular wall thickness. T here is normal LV segmental wall motion. There is no ventricular septal defect visualized. LVEF is 59 %. Right Ventricle The right ventricle is normal size. The right ventricular systolic function is normal. Atria The left atrium size is normal. The right atrium size is normal. The interatrial septum is intact wit h no evidence for an atrial septal defect. Aortic Valve The aortic valve is normal in structure. Aortic valve is trileaflet. There is no aortic valvular sten osis. No aortic regurgitation is present. Mitral Valve The mitral valve is normal in structure. No evidence of mitral valve stenosis. Trace mitral regurgita tion. Tricuspid Valve The tricuspid valve is normal in structure. There is no tricuspid valve stenosis. Trace tricuspid reg urgitation. Pulmonic Valve The pulmonary valve is normal in structure. There is no pulmonic valvular stenosis. There is no pulmo [place] valvular regurgitation. Great Vessels The aortic root is normal in size. The ascending aorta is normal in size. Aortic arch is not well vis ualized. IVC is normal in size and collapses >50% with inspiration. Pericardium There is no pericardial effusion. 2D Dimensions IVSD d PLAX 1.00 cm M: 0.6-1.2 LV Vol A2C d MOD 106.3 mL LVPW d PLAX 1.04 cm M: 0.6 - 1.2 LV Vol A4C d MOD 102.8 mL LVID d PLAX 4.66 cm M: 4.2 - 5.8 LA Area A4C s MOD 16.35 cm2 LVDs 3.10 cm M: 2.5 - 4.0 LA Area A2C s MOD 15.49 cm2 Ao Root d 3.00 cm M: 3.1 - 3.7 LV EF A4C MOD 58.4 % RA Area A4C 11.78 cm2 LV EF A2C MOD 59.1 % Ao Asc Diam d 3.52 cm M: 2.6 - 3.4 LV EF Biplane MOD 58.3 % LV EF Teichholz 61.9 % SV 60.83 mL LVEF (Lucas's) 58.28 % M: 52 - 72 LV Volume 104.37 mL M: 62 - 150 LV Volume Index 50.17 mL/m2 M: 34 - 74 LV Vol Biplane MOD 104.4 mL FS 33.25 % M-Mode TAPSE 2.09 cm (M/F) >1.7 LV Diastology MV E' medial 0.096 (>0.07 m/s) E/A Ratio 0.8 LV E/e MED 7.40 (<14) MV E Vmax 0.71 (0.4-1.3 m/s) MV E' lateral 0.094 (>0.1 m/s) MV A Vmax 0.85 (0.4-1.3 m/s) LV E/e LAT 7.55 (<14) MV E/A Ratio 0.79 MV E/E' medial 7.41 MV E/E' lateral 7.57 Aortic Valve LVOT Area 3.94 cm2 AoV Area Vmax 2.93 cm2 LVOT Vmax 0.87 m/s ALFONSO Mean Jesus. 2.49 cm2 LVOT Mean Jesus. 0.54 m/s LVOT Peak Grad 3.0 mmHg LVOT Mean Grad 1.4 mmHg LVOT VTI 0.166 m LVOT Diam s 2.20 cm AoV Vmax 1.17 m/s Velocity Ratio 0.74 AoV Mean Jesus. 0.85 m/s AoV Peak Grad 5.4 mmHg LVOT SV 65.41 mL AoV Mean Grad 3.1 mmHg AoV VTI 0.219 m AoV Area VTI 2.98 cm2 Mitral Valve MV DT 228 (160-240 msec) MV PHT 66 msec MV Area PHT 3.33 cm2 MV VTI 0.248 m MV Area VTI 2.64 (4.0-6.0 cm2) Pulmonary Valve PV Vmax 1.25 (0.5-1.5 m/s) RVOT Peak Gr. 3.77 mmHg PV Peak Grad 6.3 mmHg RVOT Mean Gr. 1.80 mmHg PV Mean Grad 3.3 mmHg RVOT VTI 0.184 m PV VTI 0.220 m RVOT Vmax 0.97 m/s
== END 2021-05-23 02:31 ==
PROVIDERS: PCP Student in an Organized Health Care Education/Training Program; Visit Provider Student in an Organized Health Care Education/Training Program
DX: R06.02 Shortness of breath (principal); Z82.49 Family history of ischemic heart disease and other diseases of the circulatory system
CPT/HCPCS: 93306

== ENCOUNTER 2021-06-14 00:23 | Outpatient (CLI) | payer MEDICARE, SELFPAY ==
--- NOTE | 2021-06-14 12:55 | DI.RAD_ITS ---
Exam(s) XR CERVICAL SP COMP W FLEX/EXT EXAM: XR CERVICAL SP COMP W FLEX/EXT CLINICAL HISTORY: re-evaluate 2' severe pain with flexion,DIZZINESS,DJD,M54.2,M19.90,R42,. TECHNIQUE: 2D digital imaging was performed. COMPARISON: No exams were available for comparison FINDINGS: The odontoid is intact. The lateral masses are well aligned. There is normal alignment of the cervi carmen spine. Vertebral bodies are well maintained. There is disc space narrowing from C4-5 through C6- C7. Endplate osteophytes are seen from C4-5 through C7-T1. No acute fracture or subluxation is prese nt. Mild neural foraminal narrowing is seen on the right at C3-4 through C5-C6. There is narrowing o n the left at C6-C7. The cervical thoracic junction is well maintained. The prevertebral soft tissue s are unremarkable. No significant subluxations are seen with flexion or extension. Lung apices are clear. IMPRESSION: Degenerative changes in the cervical spine as described. DATA REPOSITORY: RADIATION DOSE DELIVERED:
--- NOTE | 2021-06-14 12:55 | DI.RAD_ITS ---
Exam(s) XR LUMBAR SPINE COMP W FLEX/EX EXAM: XR LUMBAR SPINE COMP W FLEX/EX CLINICAL HISTORY: evaluate 2' new radiating pain,STRAIN,SPASM,M54.9,M62.830,S39.012A. TECHNIQUE: 2D digital imaging was performed of the lumbar spine. Nine images were obtained. AP, la teral, right oblique, left oblique and L5-S1 spot, flexion and extension views were obtained. COMPARISON: No exams were available for comparison FINDINGS: BONES: No fracture or destructive lesion. Vertebral bodies are unremarkable. No facet hypertrophy carmen ntified. Small endplate osteophytes are seen in the lower lumbar spine. DISKS: Intervertebral disc spaces are maintained. ALIGNMENT: Lumbar spinal alignment is within normal limits. No spondylolysis or spondylolisthesis. N o significant change in alignment with flexion or extension. SOFT TISSUE: Mild atherosclerosis. IMPRESSION: Mild degenerative changes in the lumbar spine. DATA REPOSITORY: RADIATION DOSE DELIVERED:
== END 2021-06-14 00:43 ==
PROVIDERS: PCP Student in an Organized Health Care Education/Training Program; Visit Provider Student in an Organized Health Care Education/Training Program
DX: M54.59 Other low back pain (principal); M47.816 Spondylosis without myelopathy or radiculopathy, lumbar region; R42 Dizziness and giddiness; M50.321 Other cervical disc degeneration at C4-C5 level; M50.323 Other cervical disc degeneration at C6-C7 level; M62.830 Muscle spasm of back
CPT/HCPCS: 72114; 72052

== ENCOUNTER 2021-07-16 01:00 | Outpatient (CLI) | payer MEDICARE, SELFPAY ==
--- NOTE | 2021-07-16 12:15 | DI.MRI_ITS ---
Exam(s) MR CERVICAL SPINE WO EXAM: MR CERVICAL SPINE WO CLINICAL HISTORY: evaluate stenosis 2' neuropathies,strain,djd,dizziness,m48.02,r42,m19.90 TECHNIQUE: Multiplanar multisequence MRI of the cervical spine was performed without intravenous con trast. COMPARISON: MR MRI - CERVICAL SPINE WO CONT from 09/06/2015 CR XR CERVICAL SP COMP W FLEX/EXT from 06/14/2021 FINDINGS: BONES: Vertebral body heights are maintained. Intervertebral disc spaces are normal. Alignment is nor mal. Bone marrow signal intensity is within normal limits. CERVICAL CORD: Craniovertebral junction is unremarkable. The cervical cord is normal size and signal intensity. SOFT TISSUES: Unremarkable. C2-3: No disc herniation or bulge is identified. C3-4: Minimal lateral disc osteophytes. No disc herniation or bulge is identified. C4-5: Mild loss of disc height. Circumferentially projecting disc osteophytes. No focal disc hernia tion or central canal stenosis. Mild neural foraminal narrowing. C5-6: Mild loss disc height. Endplate osteophytes and mild disc bulging cause moderate right neural foraminal encroachment. No significant left neural foraminal encroachment. No central canal stenosi s. C6-7: Moderate to severe loss of disc height. Circumferentially projecting osteophytes. No focal di sc herniation, central canal stenosis or neural foraminal narrowing. C7-T1: No disc herniation or bulge is identified. IMPRESSION: Degenerative disc changes C4-5 and C5-6 cause neural foraminal narrowing, moderate on the right side at C5-6. No disc herniation. DATA REPOSITORY:
== END 2021-07-16 01:20 ==
PROVIDERS: PCP Student in an Organized Health Care Education/Training Program; Visit Provider Student in an Organized Health Care Education/Training Program
DX: M50.321 Other cervical disc degeneration at C4-C5 level (principal); M50.322 Other cervical disc degeneration at C5-C6 level; M48.02 Spinal stenosis, cervical region; R42 Dizziness and giddiness; M25.78 Osteophyte, vertebrae
CPT/HCPCS: 72141

== ENCOUNTER 2021-07-23 02:48 | Outpatient (CLI) | payer MEDICARE, SELFPAY | END 2021-07-23 02:49 | disposition home or self-care (01) | PROVIDERS: PCP Student in an Organized Health Care Education/Training Program; Visit Provider Student in an Organized Health Care Education/Training Program ==

== ENCOUNTER 2021-08-13 02:17 | Outpatient (CLI) | payer MEDICARE, SELFPAY ==
[2021-08-13 11:25] LABS: Anion Gap 7.3 mmol/L (3-11); BUN 20 mg/dL (7-18); CO2 27.7 mmol/L (21.0-32.0); CREATININE 1.2 mg/dL (0.70-1.30); Calcium 8.5 mg/dL (8.5-10.1); Calculated LDL 158 mg/dL (<100); Chloride 105 mmol/L (98-107); Cholesterol 224 mg/dL (<200); Glucose 136 mg/dL (74-106); HDL Cholesterol 45 mg/dL (40-60); Potassium 4.4 mmol/L (3.5-5.1); Sodium 140 mmol/L (136-145); Triglyceride 107 mg/dL (<150)
== END 2021-08-13 02:18 | disposition home or self-care (01) ==
LOC: LBO 02:17
PROVIDERS: PCP Student in an Organized Health Care Education/Training Program; Visit Provider Student in an Organized Health Care Education/Training Program
DX: E78.2 Mixed hyperlipidemia (principal); R03.0 Elevated blood-pressure reading, without diagnosis of hypertension; F19.90 Other psychoactive substance use, unspecified, uncomplicated
CPT/HCPCS: 36415; 80048; 80061

== ENCOUNTER → 2021-09-06 00:45 | Outpatient (CLI) | payer MEDICARE, SELFPAY | PROVIDERS: PCP Student in an Organized Health Care Education/Training Program; Visit Provider Student in an Organized Health Care Education/Training Program ==

== ENCOUNTER 2022-04-02 11:13 | Outpatient (REF) | payer MEDICARE, SELFPAY ==
[2022-04-03 14:03] LABS: Influenza B RNA Result Negative (Negative); RSV RNA Result Negative (Negative)
[2022-04-03 14:06] LABS: COVID-19 RT-PCR UVMMC Result Negative (Negative)
[2022-04-03 16:21] LABS: Influenza A RNA Result Positive (Negative)
== END 2022-04-02 11:14 | disposition home or self-care (01) ==
LOC: LBN 11:13
PROVIDERS: PCP Student in an Organized Health Care Education/Training Program; Visit Provider Nurse Practitioner
DX: J02.9 Acute pharyngitis, unspecified (principal); Z20.822 Contact with and (suspected) exposure to COVID-19
CPT/HCPCS: 87631; U0003

== ENCOUNTER → 2022-06-19 13:43 | Outpatient (BNVA) | payer MEDICARE, SELFPAY | PROVIDERS: PCP Student in an Organized Health Care Education/Training Program; Referring Provider Student in an Organized Health Care Education/Training Program; Visit Provider Urology | DX: R31.29 Other microscopic hematuria (principal); N52.9 Male erectile dysfunction, unspecified; N28.1 Cyst of kidney, acquired; R39.198 Other difficulties with micturition | CPT/HCPCS: 99215 ==

== ENCOUNTER 2022-06-24 02:32 | Outpatient (CLI) | payer MEDICARE, SELFPAY ==
[2022-06-24 11:46] LABS: Bilirubin Negative (Negative); Blood Trace-lysed (Negative); Clarity Clear (Clear); Glucose Negative (Negative); Ketones Negative (Negative); Leukocyte Esterase Negative (Negative); Nitrite Negative (Negative); Urobilinogen 0.2 mg/dL (Up to 0.2); pH 5.5 (5-8)
[2022-06-24 11:54] LABS: Bacteria Rare HPF (Negative); C & S Indicated? No; Casts Negative LPF (Negative); Crystals Negative HPF (Negative); Epithelial Cells Rare HPF (Negative); Mucus Trace (Negative); WBC 0-2 HPF (0-5)
[2022-06-24 12:07] LABS: ALT 37 U/L (16-63); AST 16 U/L (15-37); Albumin 3.9 g/dL (3.4-5.0); Alkaline Phosphatase 85 U/L (46-116); Anion Gap 5.4 mmol/L (3-11); BUN 17 mg/dL (7-18); Bilirubin, Total 0.4 mg/dL (0.2-1.0); CO2 30.6 mmol/L (21.0-32.0); CREATININE 1.2 mg/dL (0.70-1.30); Calcium 9.1 mg/dL (8.5-10.1); Calculated LDL 158 mg/dL (<100); Chloride 104 mmol/L (98-107); Cholesterol 243 mg/dL (<200); Glucose 93 mg/dL (74-106); HDL Cholesterol 48 mg/dL (40-60); Potassium 4.2 mmol/L (3.5-5.1); Sodium 140 mmol/L (136-145); TSH (W/Ref FT4) 2.31 uIU/mL (0.36-3.74); Total Protein 7.7 g/dL (6.4-8.2); Triglyceride 188 mg/dL (<150)
[2022-06-28 16:25] LABS: Testosterone, Total 345 ng/dL (240-950)
== END 2022-06-24 02:33 | disposition home or self-care (01) ==
LOC: LBO 02:33
PROVIDERS: PCP Student in an Organized Health Care Education/Training Program; Visit Provider Urology
DX: N52.9 Male erectile dysfunction, unspecified (principal); R31.29 Other microscopic hematuria; I10 Essential (primary) hypertension; E78.2 Mixed hyperlipidemia; Z13.220 Encounter for screening for lipoid disorders; F41.1 Generalized anxiety disorder; Z12.5 Encounter for screening for malignant neoplasm of prostate
CPT/HCPCS: 36415; 80053; 80061; 84153; 84403; 81003; 81015; 84443

== ENCOUNTER → 2022-07-28 13:40 | Outpatient (BNVA) | payer MEDICARE, SELFPAY | PROVIDERS: PCP Student in an Organized Health Care Education/Training Program; Referring Provider Student in an Organized Health Care Education/Training Program; Visit Provider Urology | DX: R31.29 Other microscopic hematuria (principal) | CPT/HCPCS: 99213 ==

== ENCOUNTER 2022-08-01 00:17 | Outpatient (CLI) | payer MEDICARE, SELFPAY ==
--- NOTE | 2022-08-01 07:15 | DI.US_ITS ---
Exam(s) US CAROTID EXAM: US CAROTID CLINICAL HISTORY: evaluate for plaque,VERTIGO,R42,COMPARE TO 2020. TECHNIQUE: Ultrasound carotids performed using grayscale, color-flow, and spectral Doppler imaging. COMPARISON: US US CAROTID from 07/17/2020 FINDINGS: RIGHT CAROTID ARTERY: Plaque: None. Velocity elevation: None. LEFT CAROTID ARTERY: Plaque: None. Velocity elevation: None. VERTEBRAL ARTERIES: Antegrade flow. Measurements: R Bulb: 84.1cm/s PS / 23.2cm/s ED R CCA: 91.9cm/s PS / 19.3cm/s ED R ECA: 103.5cm/s PS / 14.1cm/s ED R ICA Prox: 77.6cm/s PS / 25.8cm/s ED R ICA Mid: 96.2cm/s PS / 33.3cm/s ED R ICA Distal: 94.4cm/s PS /30.5cm/s ED R Vert: 70.2cm/s PS / 23cm/s ED R SVR: 1 R DVR: 1.6 L Bulb: 75cm/s PS / 13.2cm/s ED L CCA: 88.1cm/s PS / 29.8cm/s ED L ECA: 123.9cm/s PS / 23.7cm/s ED L ICA Prox: 94.7cm/s PS / 28cm/s ED L ICA Mid: 84.8cm/s PS / 29.1cm/s ED L ICA Distal: 70.5cm/s PS / 20.3cm/s ED L Vert: 58cm/s PS / 19.4cm/s ED L SVR: 0.7 L DVR: 0.8 IMPRESSION: No evidence for hemodynamically significant carotid stenosis. Criteria for Carotid Stenosis: Normal: ICA PSV <125 cm/s no plaque or intimal thickening is visible. <50% stenosis: ICA PSV <125 cm/s and plaque or intimal thickening is visible. 50-69% stenosis: ICA PSV is 125-250 cm/s and plaque is visible. >70% stenosis to near occlusion: ICA PSV >250 cm/s with visible plaque and luminal narrowing. DATA REPOSITORY:
== END 2022-08-01 00:37 ==
LOC: DI 00:17
PROVIDERS: PCP Student in an Organized Health Care Education/Training Program; Visit Provider Student in an Organized Health Care Education/Training Program
DX: R42 Dizziness and giddiness (principal)
CPT/HCPCS: 93880

== ENCOUNTER 2022-09-20 15:18 | Emergency (ER) | payer MEDICARE, SELFPAY ==
[2022-09-20 15:30] VITALS: BP 174/79; PULSE 81; RESP 16; TEMP 37.3; O2SAT 96
--- NOTE | 2022-09-20 16:30 | DI.RAD_ITS ---
Exam(s) XR KNEE LT 3V AP,LAT,JANETTE EXAM: XR KNEE LT 3V AP,LAT,JANETTE CLINICAL HISTORY: pain. TECHNIQUE: 2D digital imaging was performed. COMPARISON: No exams were available for comparison FINDINGS: 3 views No evidence of acute fracture. Small amount of increased joint fluid noted. No degenerative changes . Bone density normal. No osseous lesions. IMPRESSION: No acute osseous findings. Small joint effusion. DATA REPOSITORY: RADIATION DOSE DELIVERED:
--- NOTE | 2022-09-20 16:37 | W.ED.GENAD ---
Discharge Plan Disposition Patient Disposition: Home Condition: Stable Discharge Details Clinical Impression: Left knee sprain Primary Care Provider: Francisca Sawyer ED Provider: Abhilash Denise Home Meds and New Rx's Prescriptions: Continued lisinopril 10 mg tablet 10 mg PO DAILY Qty: 90 3RF vitamin B complex [B Complex-Vitamin B12] Tablet 1 tab PO DAILY Rx Instructions: B12 only - pt's choice 03/15/21 cannabidiol 100 mg/mL solution See Rx Instructions PO .COMPLEX PRN Rx Instructions: 15 mg gummies PO PRN; gummies acetaminophen 650 mg tablet extended release 650 mg PO Q8H pravastatin 10 mg tablet 10 mg PO QHS Qty: 30 0RF Hold Instructions: Pt stopped, TBD Rx Instructions: Trial diazepam 2 mg tablet 1 mg PO QHS PRN (Reason: vertigo, neck mm spasp) Qty: 20 1RF Rx Instructions: HALF Tab qHS PRN vertigo Discharge Instructions Instructions: Knee Sprain (ED) Additional Instructions: if pain continues in a week follow up with your primary care provider return to the emergency department for any severe worsening pain or new symptoms such as difficulty breathing Medical Decision Making 57 yo male comes in with left knee pain for 2 days. He states 2 days ago he was walking when his left knee twisted causing him to fall and has had pain in the medial and posterior knee since. Denies hitting his head or loc. He has no fevers, no chills. He has full rom of the knee, intact distal sensation, mild swelling of the medial knee with tenderness, no other visible or palpable deformities and no warmth or erythema. Suspect strain vs meniscus injury, will obtain xrays to evaluate for possible fracture. imaging unremarkable, will provide knee brace and advised to f/u with pcp if pain continues in a week, return precautions given Differential Diagnosis Differential Diagnosis: contusion, sprain, strain Imaging Data Radiologic Study: Attestation: I personally reviewed and interpreted this imaging study as follows: Imaging: X-Ray Radiologist's impression: no acute findings, mild osteoarthritis HPI General Mode of arrival: ambulatory. Date/Time Provider Initiated Documentation: 09/20/22 15:19. Limitations to Documentation: no limitations. Information obtained by: patient. History of Present Illness 57 year old M presents to the emergency department with the chief complaint of left knee pain, described as moderate, with intensity rated at 6. Quality is described as aching, and is localized to the left and lower extremity. Patient reports no radiation. and it has been constant. No relieving factors improve symptom(s), No exacerbating factors reported . Patient notes no other symptoms.; denies fever/chills. Patient did receive the following treatments prior to arrival, none Related Data Home Medications Medication Instructions Recorded Confirmed pravastatin 10 mg tablet 10 mg PO QHS #30 tabs 07/05/20 06/19/22 cannabidiol 100 mg/mL oral solution See Rx Instructions PO .COMPLEX PRN 03/15/21 06/19/22 vitamin B complex (B 1 tab PO DAILY 03/15/21 06/19/22 Complex-Vitamin B12 tablet) lisinopril 10 mg tablet 10 mg PO DAILY #90 tabs 07/26/21 04/02/22 acetaminophen 650 mg 650 mg PO Q8H 06/17/22 06/19/22 tablet,extended release diazepam 2 mg tablet 1 mg PO QHS PRN vertigo, neck mm 06/27/22 spasp #20 tabs Previous Rx's Medication Instructions Recorded pravastatin 10 mg tablet 10 mg PO QHS #30 tabs 07/05/20 lisinopril 10 mg tablet 10 mg PO DAILY #90 tabs 07/26/21 diazepam 2 mg tablet 1 mg PO QHS PRN vertigo, neck mm 06/27/22 spasp #20 tabs Allergies Allergy/AdvReac Type Severity Reaction Status Date / Time acetaminophen [From Tylenol] AdvReac Intermediate Makes pt's Verified 06/19/22 13:52 head feel strange. cyclobenzaprine AdvReac Intermediate stomach Verified 06/19/22 13:52 [Cyclobenzaprine] upset meclizine AdvReac Intermediate Worse Verified 06/19/22 13:52 vertigo ondansetron AdvReac Intermediate nausea, Verified 06/19/22 13:52 vomiting oxycodone AdvReac Intermediate Wicked bad Verified 06/19/22 13:52 constipation promethazine AdvReac Intermediate pt states Verified 06/19/22 13:52 it made him puke violently and very sleepy codeine [Codeine] AdvReac Mild Nausea Verified 06/19/22 13:52 paroxetine AdvReac Mild ?? self Verified 06/19/22 13:52 discontinued General Stated Complaint: Orthopedic GWENDOLYN: 4 Review of Systems All systems reviewed & are unremarkable except as noted in HPI and below Constitutional Constitutional: Denies chills, Denies fever(s) and Denies weakness Eyes Eyes: Denies loss of vision ENT Ears, Nose, Mouth, and Throat: Denies change in voice Cardiovascular Cardiovascular: Denies chest pain and Denies dyspnea Respiratory Respiratory: Denies cough and Denies dyspnea Gastrointestinal Gastrointestinal: Denies abdominal pain, Denies nausea and Denies vomiting Integumentary/Breasts Skin/Breast: Denies rash Neurologic Neurologic: Denies loss of vision and Denies weakness PFSH All Active Problems (Updated 09/20/22 @ 17:21 by Abhilash Denise MD) Left knee sprain (Acute) Dyspnea on minimal exertion (Acute) Other dyspnea and respiratory abnormality (Acute) Urinary anomaly (Acute) Hypertension (Chronic) Numbness and tingling of left hand (Acute) wrist --> elbow (forearm), cubit tunn? cervical radiculopathy? fle Generalized postprandial abdominal pain (Acute) Nausea (Acute) Anxiety about health (Acute) Radiculopathy due to disorder of intervertebral disc (Acute) Left arm tingling, with painful numbness @ night.. Stenosis of cervical spine (Acute) with possible radiculopathy Back pain with radiation (Acute) Family history of ASCVD (arteriosclerotic cardiovascular disease) (Acute) Fa ([place]). Mo Quad Bypass (Fall 2020). Neck muscle strain (Acute) acute on chronic .. Hx relief with PT Degenerative joint disease (Chronic 05/04/15) XR (05/2021) re-confirms stenosis @ C4-5 through C6-7 .. of cervical spine 05/04/15. Neg CTA head/neck (2018). MRI DJD [address] [facility] 06/23/17 Diastasis recti (Acute) Vertigo (Acute 01/03/15) Dizziness (Acute) Long Hx, pronounced @ flexion (03/2020) .. relieved with small dose diazpm. Migraine (Acute 06/13/11) Lumbar strain (Acute) Spasm of muscle of lower back (Acute) Gastroesophageal reflux disease with esophagitis (Acute) EGD Delilah 04/12/09 esophagitis, GE reflux GERD (gastroesophageal reflux disease) (Chronic) Esophageal reflux (Acute 06/13/11) Hiatal hernia (Chronic) Hx Dx per surgery (older Dr. Mazariegos), but that it needs to be reviewed carefully. Mild (?) but could cause future problems per pt recollection. 12/2018 Diaphragmatic hernia (Acute 06/13/11) s/p surgery, with mesh.. Pt wonders if hernia repair/mesh is associated with the nausea/dizziness/near-syncope sensations he has increasingly been having .. 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 lipoma; left lumbar, subcutaneous; reports present since childhood; documented on [facility] visit 07/02/09. Lipoma of unspecified site (Acute 06/13/11) Generalized anxiety disorder (Acute 06/27/16) failed paroxetine 03/2016; responds to Diazepam Medical History (Updated 09/20/22 @ 17:21 by Abhilash Denise MD) Congenital hearing loss Hearing aid in R ear Erectile dysfunction Microscopic hematuria Parapelvic renal cyst Surgical History Arthrocentesis, intermediate joint Colonoscopy - MAC (03/25/16) EGD - MAC (03/25/16) Excision, Lipoma (11/18/16) RIGHT BACK Repair of umbilical hernia (11/18/16) Dr Mazariegos, [facility] Family History Mother Diabetes 2/2 sx for pancreatic CA Pancreatic cancer Heart disease open heart surgery 2020, heart pacer prior to Father , Surgical complicatio at age 69. Essential hypertension Heart disease Hernia from complications [place] [facility] [place] Sister Substance abuse Alcoholism Social History Smoking/Tobacco Use Status: Never Smoking risk assessment performed?: Yes Alcohol Intake: never Drug use: Never Substance use type: does not use Household members: children Housing: apartment Number of Children: 2 Communication Needs: Hard of Hearing current occupation: Retired What type of physical activity do you participate in: walking, independent ambulation and swimming Do you feel safe at home: Yes Do you feel safe in your relationship?: Yes Exam Const General: no acute distress Orientation: alert HENMT Head: normal to inspection Ears: external ears normal General nose exam: external nose normal Mouth: moist mucous membranes Eyes General: appearance normal, both eyes and all related structures Neck Neck: normal visual inspection Resp Effort & Inspection: normal respiratory effort and able to speak in complete sentences Cardio Rate: regular rate Skin General skin exam: no rashes or lesions noted Neuro General: patient alert and patient oriented x3 Extrem General: normal to inspection, full ROM and capillary refill normal Psych Mental Status: mental status grossly normal Course Vital Signs Vital signs: Vital Signs Temperature 37.3 C 09/20/22 15:30 Pulse 81 09/20/22 15:30 Respiratory Rate 16 09/20/22 15:30 Blood Pressure 174/79 H 09/20/22 15:30 Pulse Oximetry 96 09/20/22 15:30 Temperature 37.3 C 09/20/22 15:30 Temperature Source Oral 09/20/22 15:30 Pulse 81 09/20/22 15:30 Respiratory Rate 16 09/20/22 15:30 Blood Pressure 174/79 H 09/20/22 15:30 Blood Pressure Position Sitting 09/20/22 15:30 Pulse Oximetry 96 09/20/22 15:30 Oxygen Delivery Method Room Air 09/20/22 15:30 Oxygen Flow Rate 0 09/20/22 15:30
[2022-09-20] MEDS: Ketorolac 15 MG/ML VIAL IM (16:56)
--- NOTE | 2022-09-20 17:17 | DI.VRAD_ITS ---
PROCEDURE INFORMATION: Exam: XR Left Knee Exam date and time: 09/20/2022 4:58 PM Age: 57 years old Clinical indication: Other: Pain TECHNIQUE: Imaging protocol: Radiologic exam of the left knee. Views: 3 views. COMPARISON: CR XR LUMBAR SPINE COMP W FLEX/EX 06/14/2021 12:44 PM FINDINGS: Bones/joints: Small osteophytes of the patella. No fracture or dislocation. Mild narrowing of the medial tibiofemoral joint space. Soft tissues: No significant abnormality IMPRESSION: Mild osteoarthritis Dictated and Authenticated by: Eliud Greene MD. Ordering:LIZY Hung MD
== END 2022-09-20 17:51 | disposition home or self-care (01) ==
PROVIDERS: Emergency Provider Emergency Medicine; PCP Student in an Organized Health Care Education/Training Program
DX: S83.92XA Sprain of unspecified site of left knee, initial encounter (principal); X58.XXXA Exposure to other specified factors, initial encounter
CPT/HCPCS: 73562; 96372; 99284; J1885

== ENCOUNTER 2022-11-11 01:03 | Outpatient (CLI) | payer MEDICARE, SELFPAY ==
--- NOTE | 2022-11-11 07:30 | DI.US_ITS ---
Exam(s) US SOFT TISSUE EXTREMITY EXAM: US SOFT TISSUE EXTREMITY CLINICAL HISTORY: ?Pruett's cyst -- swelling behind knee,lt knee pain, m25.562. TECHNIQUE: Ultrasound was performed using standard protocol. COMPARISON: No exams were available for comparison FINDINGS: Sonographic assessment utilizing grayscale and color Doppler imaging was performed and targeted to th e area of clinical concern. There is a 3.9 x 1.5 x 1.8 cm anechoic avascular fluid collection in the left popliteal fossa. Sonog raphically this is most suggestive of a popliteal/Pruett's cyst. 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 DATA REPOSITORY:
--- NOTE | 2022-11-11 07:30 | DI.RAD_ITS ---
Exam(s) XR SACRUM COCCYX EXAM: XR SACRUM COCCYX CLINICAL HISTORY: new pain, eval for sacrum change,coccygeal pain,m53.3. TECHNIQUE: 2D digital imaging was performed. Three images were obtained. COMPARISON: CT CT ABDOMEN PELVIS WO from 05/25/2019 CR,XR XR SACRUM COCCYX from 11/21/2020 CR XR LUMBAR SPINE COMP W FLEX/EX from 06/14/2021 FINDINGS: BONES: No acute fracture is present. No bony destructive lesion is seen. There is a bone island again seen in the right femoral neck. JOINTS: No dislocation present. The sacroiliac joints and symphysis pubis are grossly unremarkable. SOFT TISSUE: Normal. IMPRESSION: Unremarkable radiographs of the sacrum and coccyx. DATA REPOSITORY: RADIATION DOSE DELIVERED:
== END 2022-11-11 01:23 ==
PROVIDERS: PCP Student in an Organized Health Care Education/Training Program; Visit Provider Student in an Organized Health Care Education/Training Program
DX: M25.462 Effusion, left knee (principal); M71.22 Synovial cyst of popliteal space [Baker], left knee
CPT/HCPCS: 76881; 72220

== ENCOUNTER 2022-12-05 13:56 | Emergency (ER) | payer MEDICARE, SELFPAY ==
[2022-12-05 14:13] VITALS: BP 158/100; PULSE 87; RESP 18; TEMP 37.2; O2SAT 96
--- NOTE | 2022-12-05 14:15 | DI.RAD_ITS ---
Exam(s) XR SHOULDER RT COMPLETE 2+V EXAM: XR SHOULDER RT COMPLETE 2+V CLINICAL HISTORY: pain. TECHNIQUE: 2D digital imaging was performed. Five views. COMPARISON: No exams were available for comparison FINDINGS: BONES: No acute fracture is present. No bony destructive lesion is seen. Mild spurring at the unders urface of the acromion. JOINTS: No dislocation present. Minimal spurring at the margin of the glenoid. SOFT TISSUE: Normal. IMPRESSION: Minimal degenerative changes. DATA REPOSITORY: RADIATION DOSE DELIVERED:
--- NOTE | 2022-12-05 14:20 | ED.GENADUL_ITS ---
Discharge Plan Disposition Patient Disposition: Home Discharge Details Clinical Impression: Acute shoulder pain Primary Care Provider: Francisca Sawyer ED Provider: Ryan Alfaro Home Meds and New Rx's Prescriptions: No Action acetaminophen 650 mg tablet extended release 650 mg PO Q8H diazepam 2 mg tablet 1 mg PO QHS PRN (Reason: vertigo, neck mm spasp) Qty: 20 1RF Rx Instructions: HALF Tab qHS PRN vertigo Discharge Instructions Instructions: Shoulder Pain (ED) Additional Instructions: No heavy lifting for the next 2 weeks. You may apply ice to the affected area for 6 comfort. You may take Tylenol Motrin for the pain. Please follow your primary care doctor as needed The x-rays of your shoulder did not show any fractures nor any dislocation. Medical Decision Making Medical Records Medical records narrative: 57-year-old gentleman with shoulder pain status post heavy lifting. X-rays of the shoulder do not reveal any abnormalities. Patient diagnosed with a strain of the shoulder. Treatment plan reviewed with the patient. HPI General Date/Time Provider Initiated Documentation: 12/05/22 14:19 . HPI Narrative: Patient states that he was lifting a fridge at home when he felt a sudden pop in the right shoulder and pain. No focal weakness of the right shoulder. No d eformity no paresthesias no focal weakness. Patient with pain with motion of the right shoulder since the incident. Acute injury that happened just prior to coming to the emergency department Patient did not take any pain medication but he did take 1 diazepam for his vertigo which helped a lot. No neck pain. Related Data Home Medications Medication Instructions Recorded Confirmed acetaminophen 650 mg 650 mg PO Q8H 06/17/22 12/05/22 tablet,extended release diazepam 2 mg tablet 1 mg PO QHS PRN vertigo, neck mm 06/27/22 12/05/22 spasp #20 tabs Previous Rx's Medication Instructions Recorded diazepam 2 mg tablet 1 mg PO QHS PRN vertigo, neck mm 06/27/22 spasp #20 tabs Allergies Allergy/AdvReac Type Severity Reaction Status Date / Time acetaminophen [From Tylenol] AdvReac Intermediate Makes pt's Verified 12/05/22 14:20 head feel strange. cyclobenzaprine AdvReac Intermediate stomach Verified 12/05/22 14:20 [Cyclobenzaprine] upset meclizine AdvReac Intermediate Worse Verified 12/05/22 14:20 vertigo ondansetron AdvReac Intermediate nausea, Verified 12/05/22 14:20 vomiting oxycodone AdvReac Intermediate Wicked bad Verified 12/05/22 14:20 constipation promethazine AdvReac Intermediate pt states Verified 12/05/22 14:20 it made him puke violently and very sleepy codeine [Codeine] AdvReac Mild Nausea Verified 12/05/22 14:20 paroxetine AdvReac Mild ?? self Verified 12/05/22 14:20 discontinued General Stated Complaint: Orthopedic GWENDOLYN: 4 Review of Systems Narrative: 10 point review of system is negative unless otherwise specified in the HPI PFSH All Active Problems (Updated 12/05/22 @ 15:20 by Ryan Alfaro MD) Acute shoulder pain (Acute) Left knee pain (Acute) Coccygeal pain, chronic (Acute) Dyspnea on minimal exertion (Acute) Other dyspnea and respiratory abnormality (Acute) Urinary anomaly (Acute) Hypertension (Chronic) Numbness and tingling of left hand (Acute) wrist --> elbow (forearm), cubit tunn? cervical radiculopathy? fle Generalized postprandial abdominal pain (Acute) Nausea (Acute) Anxiety about health (Acute) Radiculopathy due to disorder of intervertebral disc (Acute) Left arm tingling, with painful numbness @ night.. Stenosis of cervical spine (Acute) with possible radiculopathy Family history of ASCVD (arteriosclerotic cardiovascular disease) (Acute) Fa ([place]). Mo Quad Bypass (Fall 2020). Neck muscle strain (Acute) acute on chronic .. Hx relief with PT Degenerative joint disease (Chronic 05/04/15) XR (05/2021) re-confirms stenosis @ C4-5 through C6-7 .. of cervical spine 05/04/15. Neg CTA head/neck (2018). MRI DJD 2016 initial PT eval at [facility] 06/23/17 Diastasis recti (Acute) Vertigo (Acute 01/03/15) Dizziness (Acute) Long Hx, pronounced @ flexion (03/2020) .. relieved with small dose diazpm. Migraine (Acute 06/13/11) Lumbar strain (Acute) Spasm of muscle of lower back (Acute) Gastroesophageal reflux disease with esophagitis (Acute) EGD Delilah 04/12/09 esophagitis, GE reflux GERD (gastroesophageal reflux disease) (Chronic) Esophageal reflux (Acute 06/13/11) Hiatal hernia (Chronic) Hx Dx per surgery (older Dr. Mazariegos), but that it needs to be reviewed carefully. Mild (?) but could cause future problems per pt recollection. 12/2018 Diaphragmatic hernia (Acute 06/13/11) s/p surgery, with mesh.. Pt wonders if hernia repair/mesh is associated with the nausea/dizziness/near-syncope sensations he has increasingly been having .. 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; R HEARING AID Contact him by E-Mail: [email or web address] Sensorineural hearing loss (Acute 01/15/15) Raynaud's syndrome (Acute 06/13/11) Myalgia (Acute 08/29/16) multiple muscle pains: chest, legs, arms Multiple somatic complaints (Acute) no benefit paroxetine 03/2016; some benefit diazepam 06/2016; no help marijuana Mixed hyperlipidemia (Acute 04/30/15) Medical History (Updated 12/05/22 @ 15:20 by Ryan Alfaro MD) Congenital hearing loss Hearing aid in R ear Erectile dysfunction Generalized anxiety disorder (06/27/16) failed paroxetine 03/2016; responds to Diazepam Mass of soft tissue (07/02/09) ? lipoma; left lumbar, subcutaneous; reports present since childhood; documented on [facility] visit 07/02/09. Microscopic hematuria Parapelvic renal cyst Surgical History Arthrocentesis, intermediate joint Colonoscopy - MAC (03/25/16) EGD - MAC (03/25/16) Excision, Lipoma (11/18/16) RIGHT BACK Repair of umbilical hernia (11/18/16) Dr Mazariegos, [facility] Family History Mother Diabetes 2/2 sx for pancreatic CA Pancreatic cancer Heart disease open heart surgery 2020, heart pacer prior to Father , Surgical complicatio at age 69. Essential hypertension Heart disease Hernia from complications of hernia surgery at [facility] [place] Sister Substance abuse Alcoholism Social History Smoking/Tobacco Use Status: Never Smoking risk assessment performed?: Yes Alcohol Intake: never Drug use: Never Substance use type: does not use Household members: children Housing: apartment Number of Children: 2 Communication Needs: Hard of Hearing current occupation: Retired What type of physical activity do you participate in: walking, independent ambulation and swimming Do you feel safe at home: Yes Do you feel safe in your relationship?: Yes Exam Narrative Exam Narrative: Awake alert x3 calm no acute distress pleasant cooperative Normocephalic atraumatic PERRL EOMI MMM Neck supple no midline tenderness Right shoulder. No deformity. Full range of motion passively. Point tenderness overlying the AC joint. Rest of the right upper extremity exam within normal limits. Neuro grossly intact. Skin no rashes Course Vital Signs Vital signs: Vital Signs Temperature 37.2 C 12/05/22 14:13 Pulse 87 12/05/22 14:13 Respiratory Rate 18 12/05/22 14:13 Blood Pressure 158/100 H 12/05/22 14:13 Pulse Oximetry 96 12/05/22 14:13 Temperature 37.2 C 12/05/22 14:13 Temperature Source Skin 12/05/22 14:13 Pulse 87 12/05/22 14:13 Respiratory Rate 18 12/05/22 14:13 Blood Pressure 158/100 H 12/05/22 14:13 Blood Pressure Position Sitting 12/05/22 14:13 Pulse Oximetry 96 12/05/22 14:13 Oxygen Delivery Method Room Air 12/05/22 14:13 Oxygen Flow Rate 0 12/05/22 14:13 Pain Level 7 12/05/22 14:13
[2022-12-05 15:27] VITALS: BP 155/98; PULSE 76; RESP 18; O2SAT 94
== END 2022-12-05 15:28 | disposition home or self-care (01) ==
PROVIDERS: Emergency Provider Emergency Medicine; PCP Student in an Organized Health Care Education/Training Program
DX: M25.511 Pain in right shoulder (principal); X50.0XXA Overexertion from strenuous movement or load, initial encounter; Y93.E9 Activity, other interior property and clothing maintenance; Y92.010 Kitchen of single-family (private) house as the place of occurrence of the external cause; Y99.9 Unspecified external cause status
CPT/HCPCS: 99283; 73030

== ENCOUNTER → 2022-12-19 00:08 | Outpatient (CLI) | payer MEDICARE, SELFPAY ==
--- NOTE | 2022-12-19 07:00 | DI.MRI_ITS ---
Exam(s) MR LOWER JOINT LT WO EXAM: MR LOWER JOINT LT WO CLINICAL HISTORY: eval for medial compartmEnt path,LT KNEE PAIN,M25.562. TECHNIQUE: Multiplanar multisequence MRI was performed. COMPARISON: CR,XR XR KNEE LT 3V AP,LAT,JANETTE from 09/20/2022 FINDINGS: BONES: Mild marrow edema seen in the medial aspects of the proximal tibia and medial femoral condyle which may represent contusions. No fracture is identified. JOINTS: There is mild hyperintense signal seen in the articular cartilage overlying the lateral gamez lar facet. There is no abnormal signal in the underlying bone. This may represent mild chondromalac ia. There is a small joint effusion. No loose body is identified. TENDONS: Extensor mechanism: Unremarkable. Medial retinaculum: Unremarkable. Lateral retinaculum: Unremarkable. Popliteus: Unremarkable. MUSCLES: Unremarkable. MENISCI: There is an oblique focus of hyperintense signal in the posterior horn of the medial meniscu s consistent with a tear. The lateral meniscus is unremarkable. SOFT TISSUES: There is a small popliteal cyst. LIGAMENTS: Anterior Cruciate: There is mild hyperintense signal seen in the distal aspect of the ACL which may r epresent a partial tear. Posterior Cruciate: Unremarkable. Medial Collateral:Unremarkable. Lateral Collateral: Unremarkable. OTHER: IMPRESSION: 1. Tear of the posterior horn of the medial meniscus. 2. Hyperintense signal seen in the distal aspect of the ACL suspicious for partial tear. 3. Mild marrow edema seen in the medial aspect of the medial femoral condyle and medial proximal tibi a suspicious for contusions. 4. Small joint effusion. DATA REPOSITORY:
== END ==
PROVIDERS: PCP Student in an Organized Health Care Education/Training Program; Visit Provider Student in an Organized Health Care Education/Training Program
DX: M25.562 Pain in left knee (principal); M23.222 Derangement of posterior horn of medial meniscus due to old tear or injury, left knee; S83.512A Sprain of anterior cruciate ligament of left knee, initial encounter; M25.462 Effusion, left knee; X58.XXXA Exposure to other specified factors, initial encounter
CPT/HCPCS: 73721

== ENCOUNTER → 2023-01-07 08:03 | Outpatient (BNVA) | payer MEDICARE, SELFPAY | PROVIDERS: PCP Student in an Organized Health Care Education/Training Program; Referring Provider Student in an Organized Health Care Education/Training Program; Visit Provider Student in an Organized Health Care Education/Training Program | DX: S83.242A Other tear of medial meniscus, current injury, left knee, initial encounter (principal); S46.211A Strain of muscle, fascia and tendon of other parts of biceps, right arm, initial encounter; X58.XXXA Exposure to other specified factors, initial encounter | CPT/HCPCS: 99214 ==

== ENCOUNTER 2023-03-07 17:27 | Emergency (ER) | payer MEDICARE, SELFPAY ==
[2023-03-07] VITALS (56 sets, daily range): BP systolic 166–201; BP diastolic 94–110; PULSE 84–116; RESP 16–27; TEMP 36.9–38.7; O2SAT 94–96
--- NOTE | 2023-03-07 17:30 | RT.EKG_ITS ---
APPROVED REPORT Exam: Resting ECG Reason for Exam: sob Patient Location: E HR:115 bpm ECG Measurements Heart Rate 115 AXIS MI 191 P 47 QRSd 64 QRS 7 QT 294 T 44 QTc 405 Conclusion Sinus tachycardia...rate> 99 Atrial premature complexes...SV complexes w/ short R-R intvls Probable left atrial enlargement...P >50mS, <-0.10mV V1 Consider anteroseptal infarct...Q >30mS, dimin R, V1-V2 Narrow complex sinus tachycardia at a rate of 115. Normal axis. Intervals within normal limits. No ST segment abnormalities. No T wave inversions. No prior for comparison. No acute injury pattern.
--- NOTE | 2023-03-07 17:45 | DI.RAD_ITS ---
Exam(s) XR PORTABLE CHEST AP EXAM: XR PORTABLE CHEST AP CLINICAL HISTORY: Shortness of breath. TECHNIQUE: 2D digital imaging was performed. COMPARISON: CR,XR XR CHEST 2V PA LATERAL from 11/21/2020 FINDINGS: Single AP portable view. Heart size is upper normal. The mediastinum is not widened. Lungs are clear. No infiltrates nor obvious pleural effusions. IMPRESSION: No acute pulmonary findings on this single AP portable view of the chest. DATA REPOSITORY: RADIATION DOSE DELIVERED:
--- NOTE | 2023-03-07 17:49 | ED.GENADUL_ITS ---
Discharge Plan Discharge Details Chief Complaint: RespSymp Clinical Impression: COVID-19 virus infection, Elevated blood pressure reading, History of hypertension Primary Care Provider: Francisca Sawyer ED Provider: Davy Osborn Home Meds and New Rx's Prescriptions: Continued ibuprofen 200 mg tablet 200 mg PO Q6H PRN acetaminophen 650 mg tablet extended release 650 mg PO Q8H diazepam 2 mg tablet 1 mg PO QHS PRN (Reason: vertigo, neck mm spasp) Qty: 20 1RF Rx Instructions: HALF Tab qHS PRN vertigo Discharge Instructions Additional Instructions: You were seen in the emergency department for your shortness of breath and chest pain. You are found to have a COVID infection. Please return to the emergency department if you develop worsening difficulty breathing chest pain or if you pass out. Your oxygen saturation was within normal limits. Please follow-up as needed with your primary care provider next week. Please return to the emergency department if you do not urinate at least once every 8 hours while you are awake. For your pain please take medications as follows: 1. Take acetaminophen (Tylenol), 1,000 mg (two 500 mg tabs) every 6 hours 2. Take ibuprofen (Advil), 400 mg every 6 hours. HPI General Date/Time Provider Initiated Documentation: 03/07/23 17:43 . HPI Narrative: MDM This is an overall well-appearing afebrile and not tachycardic 57-year-old male with fever sore throat shortness of breath chest pain concerning for multiple etiologies. Concerning the patient's fever he does not objectively have a fever in the emergency department however given cough difficulty breathing will obtain a chest x-ray to assess for pneumonia. We will also swab for COVID influenza and RSV. He has endorsed a right sided chest pain that radiates through to his back concerning for the possibility of ACS versus PE. Dissection less likely given the tearing quality and several days worth of symptoms. To assess for PE will obtain a D-dimer. We will send 2 sets of troponins given risk factors of family history and likely hypertension based on stress test showing LVH. No nuchal rigidity to suggest meningitis. No posterior pharynx erythema to suggest strep pharyngitis. Uvula midline so not concern for peritonsillar abscess. Good range of motion of the neck so no concern for retropharyngeal abscess. No dysuria no frequency so doubt UTI. Neurologically intact so doubt CVA and do not feel the patient is a candidate for tPA nor requires an MRI. No tonic- clonic activity to suggest seizure. Will reassess following labs and fluids. Soft nontender abdomen no vomiting nor diarrhea so doubt intra-abdominal process. Patient is no obvious hernia on external inspection and physical exam. 6:15 PM On repeat assessment patient was reportedly febrile to 38.3 for which I will treat him with oral acetaminophen and ibuprofen. He is not septic appearing and as result did not order blood cultures nor treat empirically with broad-spectrum antibiotics nor check a lactate. 6:45 PM CBC lacks anemia thrombocytopenia and leukocytosis. Reassuring comprehensive metabolic panel with mildly elevated lipase but less than 3 times upper limit of normal. No RENATA. Negative troponin. Patient requested IV acetaminophen which was changed by his nurse and he was also given IV ketorolac. 7:10 PM Patient COVID-positive given no hypoxia no indication for dexamethasone nor hospitalization. Reassuring D-dimer. 8:10 PM Patient continues resting comfortably. Given that he is vaccinated against COVID my suspicion for any acute complications is low. We will send repeat troponin and repeat temperature and heart rate prior to anticipated discharge. 9 PM Tachycardia resolving in the ED now heart rate 102. Fever resolved. 9:20 PM Repeat troponin negative. Patient and I discussed return to emergency department for worsening shortness of breath recurrent chest pain or any inability to tolerate p.o. Patient understood his return indications and we will proceed with empiric trial of expectant outpatient management. I have asked health coordinator Danni to have the patient seen by his primary care provider in the next week given his elevated blood pressure. He does carry history of hypertension but does not appear to be on any antihypertensives. His tachycardia resolved in the ED. HEART SCORE Chest pain Diagnostic Protocol: [-History/Physical/Gestalt: Slightly Suspicious (0)] [-EKG: Normal and/or unchanged from prior EKG (0)] [- AGE: 45-65 (+1)] [- RISK FACTORS: 3 or more risk factors and/or known CAD (+2)] [-TROPONIN: <= normal limit (0)] - TOTAL SCORE: 3 - Risk Factors: DM, current or recent smoker, HTN, HLD, family hx of CAD, obesity - INTERPRETATION: With a total score of 3 or less, risk of major cardiac event w ithin six weeks 1.7%, likely lower with two negative troponins. [I explained to the patient that the risk of subsequent major cardiac event within 1 month is not 0, however risk predicted to be less than 2%. Patient verbalized understanding, accepts this risk and shared and the decision for discharge with PCP follow-up for further evaluation and management. They understand to return to the ED immediately with any worsening symptoms, new symptoms or other concerns.] Chronic conditions affecting the care of the patient: GERD congenital hearing disorder History obtained from an outside historian: N/A External record review: [facility] [place] EMR [Diagnostic interpretations performed by me:] [Per my independent interpretation chest x-ray shows:] No acute cardiopulmonary process. [Per my independent interpretation EKG shows:] Narrow complex sinus tachycardia at a rate of 115. Normal axis. Intervals within normal limits. No ST segment abnormalities. No T wave inversions. No prior for comparison. No acute injury pattern. Medications: Acetaminophen & ketorolac Social determinants of health affecting disposition: N/A Management discussed with: N/A Treatment/interventions considered: Hospitalization but deferred Response to therapies provided: N/A HPI This is a 57-year-old male with history of congenital hearing disorder presenting to the emergency department via private vehicle with multiple complaints. Patient reports he has felt unwell for the past several days. He endorses a fever sore throat cough and some difficulty breathing since yesterday. He attempted treatment at home with diazepam and acetaminophen but these did not improve his symptoms. He does endorse a sore throat. He is febrile to 103.0 as taken orally earlier today. He denies any nausea or vomiting although he does feel discomfort from his hernia. No recent surgeries. Patient never had a PE nor DVT. There is family history of premature coronary artery disease and patient has documented history of hyp ertension but patient is not a diabetic and denies history of hyperlipidemia. Patient has not recently taken any falls. Denies dysuria and frequency. Exam General: Well-appearing in no acute distress speaking in complete sentences. Head: Normocephalic, atraumatic. Eye: Extraocular eye movements intact. No conjunctival injection. No scleral icterus. Ear, nose, mouth, throat: Grossly normal inspection. Normal voice, handling secretions normally. Uvula midline. No posterior pharynx erythema. Good range of motion in neck Neck: Trachea midline. Cardiovascular: Well-perfused distal extremities. Regular rate and rhythm Respiratory: Nonlabored respiration. Clear lungs bilaterally. Gastrointestinal: Nondistended abdomen. Soft nontender Musculoskeletal: No edema. Moving all 4 extremities spontaneously. Skin: Normal for age and race, grossly normal temperature and turgor. No acute rash. Neurologic: Alert and appropriate, no apparent acute deficits. Psychiatric: Mood and manner are appropriate. Grooming and personal hygiene are appropriate. Related Data Home Medications Medication Instructions Recorded Confirmed acetaminophen 650 mg 650 mg PO Q8H 06/17/22 02/01/23 tablet,extended release ibuprofen 200 mg tablet 200 mg PO Q6H PRN 01/07/23 03/07/23 diazepam 2 mg tablet 1 mg (1/2 x 2 mg) PO QHS PRN 01/09/23 03/07/23 vertigo, neck mm spasp #20 tabs Previous Rx's Medication Instructions Recorded diazepam 2 mg tablet 1 mg (1/2 x 2 mg) PO QHS PRN 01/09/23 vertigo, neck mm spasp #20 tabs Allergies Allergy/AdvReac Type Severity Reaction Status Date / Time acetaminophen [From Tylenol] AdvReac Intermediate Makes pt's Verified 03/07/23 18:01 head feel strange. cyclobenzaprine AdvReac Intermediate stomach Verified 03/07/23 18:01 [Cyclobenzaprine] upset meclizine AdvReac Intermediate Worse Verified 03/07/23 18:01 vertigo ondansetron AdvReac Intermediate nausea, Verified 03/07/23 18:01 vomiting oxycodone AdvReac Intermediate Wicked bad Verified 03/07/23 18:01 constipation promethazine AdvReac Intermediate pt states Verified 03/07/23 18:01 it made him puke violently and very sleepy codeine [Codeine] AdvReac Mild Nausea Verified 03/07/23 18:01 paroxetine AdvReac Mild ?? self Verified 03/07/23 18:01 discontinued General Stated Complaint: RespSymp GWENDOLYN: 3 PFSH All Active Problems (Updated 03/07/23 @ 21:49 by Davy Osborn MD) History of hypertension (Acute) Elevated blood pressure reading (Acute) COVID-19 virus infection (Acute) Vertigo (Acute 01/03/15) Nausea (Acute) Acute tear of posterior horn of medial meniscus (Acute ~09/18/22) Rupture of right biceps tendon (Acute ~12/05/22) Biceps tendon tear (Acute) Left knee pain (Acute) Coccygeal pain, chronic (Acute) Dyspnea on minimal exertion (Acute) Other dyspnea and respiratory abnormality (Acute) Urinary anomaly (Acute) Stenosis of cervical spine (Acute) with possible radiculopathy Hypertension (Chronic) Neck muscle strain (Acute) acute on chronic .. Hx relief with PT Degenerative joint disease (Chronic 05/04/15) XR (05/2021) re-confirms stenosis @ C4-5 through C6-7 .. of cervical spine 05/04/15. Neg CTA head/neck (2018). MRI DJD 2015 initial PT eval at [facility] 06/23/17 Numbness and tingling of left hand (Acute) wrist --> elbow (forearm), cubit tunn? cervical radiculopathy? fle Radiculopathy due to disorder of intervertebral disc (Acute) Left arm tingling, with painful numbness @ night.. Generalized postprandial abdominal pain (Acute) Family history of ASCVD (arteriosclerotic cardiovascular disease) (Acute) Fa ([place]). Mo Quad Bypass (Fall 2020). Diastasis recti (Acute) Dizziness (Acute) Long Hx, pronounced @ flexion (03/2020) .. relieved with small dose diazpm. Migraine (Acute 06/13/11) Lumbar strain (Acute) Spasm of muscle of lower back (Acute) Gastroesophageal reflux disease with esophagitis (Acute) EGD Del[facility]ah 04/12/09 esophagitis, GE reflux GERD (gastroesophageal reflux disease) (Chronic) Hiatal hernia (Chronic) Hx Dx per surgery (older Dr. Mazariegos), but that it needs to be reviewed carefully. Mild (?) but could cause future problems per pt recollection. 12/2018 Diaphragmatic hernia (Acute 06/13/11) s/p surgery, with mesh.. Pt wonders if hernia repair/mesh is associated with the nausea/dizziness/near-syncope sensations he has increasingly been having .. []U/S Abd Umbilical hernia without obstruction and without gangrene (Acute 05/19/16) on CT [facility] Skin sensation disturbance (Acute 06/13/11) Congenital hearing disorder (Acute 1965) CONGENITAL DEAF; R HEARING AID Contact him by E-Mail: [email or web address] Sensorineural hearing loss (Acute 01/15/15) Raynaud's syndrome (Acute 06/13/11) Myalgia (Acute 08/29/16) multiple muscle pains: chest, legs, arms Multiple somatic complaints (Acute) no benefit paroxetine 03/2016; some benefit diazepam 06/2016; no help marijuana Medical History (Updated 03/07/23 @ 21:49 by Davy Osborn MD) Parapelvic renal cyst Microscopic hematuria Anxiety about health Erectile dysfunction Mixed hyperlipidemia (04/30/15) Mass of soft tissue (07/02/09) ? lipoma; left lumbar, subcutaneous; reports present since childhood; documented on [facility] visit 07/02/09. Generalized anxiety disorder (06/27/16) failed paroxetine 03/2016; responds to Diazepam Surgical History Repair of umbilical hernia (11/18/16) Dr Mazariegos, [facility] Excision, Lipoma (11/18/16) RIGHT BACK EGD - [facility] (03/25/16) Colonoscopy - [facility] (03/25/16) Arthrocentesis, intermediate joint Family History Mother Diabetes 2/2 sx for pancreatic CA Pancreatic cancer Heart disease open heart surgery 2020, heart pacer prior to Father , Surgical complicatio at age 69. Essential hypertension Heart disease Hernia from complications of hernia surgery at [facility] [place] Sister Substance abuse Alcoholism Social History Smoking/Tobacco Use Status: Never Smoking risk assessment performed?: Yes Alcohol Intake: never Drug use: Never Substance use type: does not use Household members: children Housing: apartment Number of Children: 2 Communication Needs: Hard of Hearing current occupation: Retired Current gender identity: male What type of physical activity do you participate in: walking, independent ambulation and swimming Do you feel safe at home: Yes Do you feel safe in your relationship?: Yes Course Vital Signs Vital signs: Vital Signs Temperature 37.7 C H 03/07/23 17:29 Pulse 84 03/07/23 17:29 Respiratory Rate 18 03/07/23 17:29 Blood Pressure 201/110 H 03/07/23 17:29 Pulse Oximetry 96 03/07/23 17:29 Temperature 37.7 C H 03/07/23 17:29 Temperature Source Oral 03/07/23 17:29 Pulse 84 03/07/23 17:29 Respiratory Rate 18 03/07/23 17:29 Respiratory Effort Normal, Non-Labored 03/07/23 17:34 Blood Pressure 201/110 H 03/07/23 17:29 Blood Pressure Position Sitting 03/07/23 17:29 Pulse Oximetry 96 03/07/23 17:29 Oxygen Delivery Method Room Air 03/07/23 17:29 Oxygen Flow Rate 0 03/07/23 17:29
[2023-03-07] MEDS: Normal Saline 500 ML IV (18:10)
[2023-03-07 18:14] LABS: Abs Immature Grans 0.02 10^3/uL (0.0-0.06); Absolute Basophil Count 0.03 10^3/uL (0.0-0.2); Absolute Eosinophil Count 0.16 10^3/uL (0.0-0.7); Absolute Lymphocyte Count 0.51 10^3/uL (1.2-3.4); Absolute Monocyte Count 1.09 10^3/uL (0.1-0.8); Absolute Neutrophil Count 4.73 10^3/uL (1.2-6.7); Basophils % 0.5; Eosinophils % 2.4; HCT 47.3 % (40.0-50.0); HGB 16.2 g/dL (13.5-17.5); Immature Grans % 0.3; Lymphocytes % 7.8; MCH 28.6 pg (27.0-33.0); MCHC 34.2 % (32.0-36.0); MCV 84 fL (80-95); MPV 10.3 fL (8.0-11.0); Monocytes % 16.7; Neutrophils % 72.3; Platelet Count 212 10^3/uL (130-400); RBC 5.66 10^6/uL (4.36-5.78); RDW 13.2 % (11.8-14.1); RDW-SD 41.1 fL; WBC 6.54 10^3/uL (4.4-10.8)
[2023-03-07 18:33] LABS: Anion Gap 6.7 mmol/L (3-11); BUN 16 mg/dL (7-18); CO2 27.3 mmol/L (21.0-32.0); CREATININE 1.2 mg/dL (0.70-1.30); Calcium 9.3 mg/dL (8.5-10.1); Chloride 102 mmol/L (98-107); Glucose 98 mg/dL (74-106); Lipase 141 U/L (16-77); Potassium 4.1 mmol/L (3.5-5.1); Sodium 136 mmol/L (136-145); Troponin I < 50 ng/L (<or=60)
[2023-03-07] MEDS: ACETAMINOPHEN 1,000 MG/100 ML BTL 260 MG (18:36)
[2023-03-07] MEDS: Ketorolac 15 MG/ML VIAL (18:38)
[2023-03-07 18:50] LABS: Influenza A PCR Negative (Negative); Influenza B PCR Negative (Negative); RSV PCR Negative (Negative)
[2023-03-07 18:53] LABS: D-Dimer 345 ng/mlFEU (<500)
[2023-03-07 18:55] LABS: COVID-19 PCR Positive (Negative); Source Nasopharynx
--- NOTE | 2023-03-07 19:13 | DI.VRAD_ITS ---
PROCEDURE INFORMATION: Exam: XR Chest Exam date and time: 03/07/2023 6:34 PM Age: 57 years old Clinical indication: Shortness of breath TECHNIQUE: Imaging protocol: Radiologic exam of the chest. Views: 1 view. COMPARISON: CR XR CHEST 2V PA LATERAL 11/21/2020 3:56 PM FINDINGS: Lungs: No consolidation. No Mass Pleural spaces: No pleural effusion. No pneumothorax. Heart/Mediastinum: Unremarkable Bones/joints: No significant abnormality IMPRESSION: No acute findings. Dictated and Authenticated by: Eliud Greene MD. Ordering:AP Bhatti MD
[2023-03-07 21:19] LABS: Troponin I < 50 ng/L (<or=60)
--- NOTE | 2023-03-07 21:36 | NUR.NOTE ---
Pt placed on care management referral list to see primary within 1 weeks for elevated blood pressure, per ED Dr. Osborn
== END 2023-03-07 21:44 | disposition home or self-care (01) ==
PROVIDERS: Emergency Provider Emergency Medicine; PCP Student in an Organized Health Care Education/Training Program
DX: U07.1 COVID-19 (principal); I10 Essential (primary) hypertension; R00.0 Tachycardia, unspecified
CPT/HCPCS: 36415; 80048; 83690; 87637; 93005; 96360; 99283; 71045; 84484; 85025; 85379; 93010; J0131; J1885

== ENCOUNTER 2023-09-22 01:26 | Outpatient (CLI) | payer MEDICARE, SELFPAY ==
[2023-09-22 10:28] LABS: HGB 16.7 g/dL (13.5-17.5)
[2023-09-22 11:32] LABS: ALT 33 U/L (16-63); AST 15 U/L (15-37); Alkaline Phosphatase 83 U/L (46-116); Anion Gap 3.9 mmol/L (3-11); BUN 14 mg/dL (7-18); Bilirubin, Total 0.7 mg/dL (0.2-1.0); CO2 27.1 mmol/L (21.0-32.0); CREATININE 1.2 mg/dL (0.70-1.30); Calculated LDL 177 mg/dL (<100); Chloride 106 mmol/L (98-107); Cholesterol 250 mg/dL (<200); Estimated GFR 69.66 (mL/min/1.73m2); Glucose 104 mg/dL (74-106); HDL Cholesterol 53 mg/dL (40-60); Potassium 4.3 mmol/L (3.5-5.1); Sodium 137 mmol/L (136-145); Triglyceride 102 mg/dL (<150)
[2023-09-22 12:04] LABS: Albumin 4.1 g/dL (3.4-5.0); Lipase 29 U/L (16-77); Total Protein 7.9 g/dL (6.4-8.2)
== END 2023-09-22 01:27 | disposition home or self-care (01) ==
LOC: LBO 01:26
PROVIDERS: PCP Student in an Organized Health Care Education/Training Program; Referring Provider Student in an Organized Health Care Education/Training Program; Visit Provider Student in an Organized Health Care Education/Training Program
DX: I10 Essential (primary) hypertension (principal); Z13.220 Encounter for screening for lipoid disorders; Z87.19 Personal history of other diseases of the digestive system; R03.0 Elevated blood-pressure reading, without diagnosis of hypertension; R74.8 Abnormal levels of other serum enzymes; R43.8 Other disturbances of smell and taste
CPT/HCPCS: 36415; 80053; 80061; 83690; 85018

== ENCOUNTER 2023-12-08 13:00 | Emergency (ER) | payer MEDICARE, SELFPAY ==
[2023-12-08 13:08] VITALS: PULSE 79; RESP 18; TEMP 37.3; O2SAT 97
--- OUTSIDE RECORDS SUMMARY | 2023-12-08 13:42 | XMS_ITS | Clinical Summary ---
Author Organization [facility] Address [address] [place] [address] Care Team Providers Care Gum Scoring Machine Operator Name Role Phone Deangelo Scott MD Primary Care Provider Unav ailable Allergies Active Allergy Reactions Criticality Noted Date Comments Codeine Nausea Only Medium 04/10/2015 Medications No known medications Surgical History Surgery Date Site/Laterality Comments TONSILLECTOMY Medical History Medical History Date Comments Hiatal hernia Migraines Congenital hearing loss of both ears Social History Tobacco Use Types Packs/Day Years Used Date Smoking Tobacco: Never Smokeless Tobacco: Never Alcohol Use Standard Drinks/Week Comments No 0 (1 standard drink = 0.6 oz pur e alcohol) Sex and Gender Information Value Date Recorded Sex Assigned at Not on file Gender Identity Not on file Sexual Orientation Not on file Obstetrics History Plan of Treatment Health Maintenance Due Date Last Done Comments Hepatitis C Screen 1965 Hepatitis B Vaccine (1 of 3 - 19+ 3-dose series) 03/28 COVID-19 Vaccine (2022- season) 2022 Care Teams Gum Scoring Machine Operator Relationship Specialty Start Date End Date Deangelo Scott MD PCP - General 04/16/09
--- OUTSIDE RECORDS SUMMARY | 2023-12-08 13:42 | XMS_ITS | Encounter Summary ---
Author Organization [facility] Address [address] [place] [address] Care Team Providers Care Color Coater Name Role Phone Unknown, Provider Primary Care Provider [phone] Encounter Details Date Type Department Care Team (Late st Contact Info) Description 04/12/2009 Orders Only [facility] - [facility] ([facility]) [address], [place] [id number] Chaka Nye MD [address] [place] [address] Social History Tobacco Use Types Packs/Day Years Used Date Smoking Tobacco: Never Assessed Sex and Gender Information Value Date Recorded Sex Assigned at Not on file Gender Identity Not on file Sexual Orientation Not on file documented as of this encounter Plan of Treatment Not on file documented as of this encounter Procedures Procedure Name Priority Date/Time Associated Diagnosis Comments SURGICAL PATHOLOGY Routine 04/12/2009 0:00 EST documented in this encounter Results * SURGICAL PATHOLOGY (04/12/2009 0:00 EST) Pathology Report: SURGICAL PATHOLOGY REPORT ? Reports generated via electronic interface contain original data; ? however they are lacking the format of the original report. ? Caution should be taken when reading/interpreti ng unformatted reports. ? Name: ? TAZ, REBECCA ? Accession #: ? [id number] ? : ? 1965 (Age: 44) ??M ? Collect Date: ? 04/12/2009 ? Location: ? [facility] ? Receive Date: ? 04/13/2009 ? Provider: CHAKA NYE MD ? Copy to: SMILEY GUSTAFSON MD ? Final Pathologic Diagnosis: ? Esophagus, 40 cm, biopsies: ? 1. ?Squamocolumnar mucosa increased intraepithelial eosinophils (max ? count 9/HPF). ??See comment. ? - Negative for intestinal metaplasia. ? - Negative for dysplasia. ? Comment: ? The histologic features show a reactive squamous epithelium with focally ?? increased intraepithelial eosinophils. There are no eosinophilic microabscesses. These features are likely related to reflux esophagitis, but eosinophilic ? esophagitis cannot be entirely excluded. ??Correlation with the endoscopic ? appearance and clinical features is essential. (Dr. Cintron) ? Document reviewed and electronically signed by: ? Gilberto Cintron MD ? Report ??Date: 04/17/2009 17:28 ? By the signature above, the attending physician certifies that he/she has ? personally conducted a gross and/or microscopic examination of the described ? specimens and rendered or confirmed the above diagnosis. ? Specimen(s) Received: ? Bx esophagus 40 cm ? Clinical History: ? Epigastric pain ? Gross Description: ? Received in Hollande's fixative labelled [place], Rebecca and 1 ??bx esophagus 40 cm are four pieces of tissue which range from 0.8 x 0.2 x 0.1 cm to 0.2 x ?? 0.2 x 0.1 cm, with two submitted as (A1) and the remaining two as (A2). ??(J. ? Tessitore)/lgk ? End of Report ? [facility] 04/12/2009 04/13/2009 10: 00 EST Chaka Nye MD PATHOLOGY ORDERABLE S Performing Organization Address City/State/[facility] Co de Phone Number [facility] [address] [place] [address] documented in this encounter Visit Diagnoses Not on filedocumented in this encounter Care Teams Color Coater Relationship Specialty Start Date End Date Unknown, Provider, PCP - General 04/13/09 04/15/09 documented as of this encounter
--- OUTSIDE RECORDS SUMMARY | 2023-12-08 13:42 | XMS_ITS | Encounter Summary ---
Author Organization [facility] Address [address] [place] [address] Care Team Providers Care Travel Ticketing Reviewer Name Role Phone Deangelo Scott MD Primary Care Provider Unav ailable Reason for Visit * Reason Comments Dizziness Encounter Details Date Type Department Care Team (Late st Contact Info) Description 04/10/2015 14:30 EST Office Visit [facility] ENT- Main [address] [address] Rebecca Hoang MD [address] [place] [address] KAREN PAIZ [phone] Dizziness and giddiness (Primary Dx) Discharge Disposition: Auto Discharge Social History Tobacco Use Types Packs/Day Years Used Date Smoking Tobacco: Never Smokeless Tobacco: Never Alcohol Use Standard Drinks/Week Comments No 0 (1 standard drink = 0.6 oz pur e alcohol) Sex and Gender Information Value Date Recorded Sex Assigned at Not on file Gender Identity Not on file Sexual Orientation Not on file documented as of this encounter Functional Status Functional Status Response Date of Assess ment Because of a physical, menta l, or emotional condition, does this person have difficulty doing errands alone such as visiting a doctor's office or shopping? No 04/10/2015 Cognitive Status Response Date of Assessm ent Because of a physical, menta l, or emotional condition, does this person have serious difficulty concentrating, remembering, or making decisions? No 04/10/2015 documented as of this encounter Discharge Diagnoses Diagnosis R42 Dizziness and giddiness-R42[ICD-10-CM] documented in this encounter Discharge Disposition Disposition Code Departure Means Destination Auto Discharge documented in this encounter Progress Notes * Rebecca Hoang MD - 04/10/2015 1647 EST [facility] ENT April 10, 2015 Kwadwo Wall DO [facility] [address] [place] [address] RE: REBECCA MCGHEE : [address] Wall: I have seen and evaluated Rebecca Mcghee today in clinic for his episodes of vertigo. His symptoms lasting for over a day at a time and are not consistent with Meniere's disease. Given the findings on autoimmune testing that you performed, rheumatologic evaluation could be considered. Furthermore, evaluation of his complaint of neck pain may be performed by a leather piece inspector; however, in light of his arm and hand numbness, MR imaging of his neck may also be considered. I have arranged for VNG testingand will contact the patient with the results. My clinic note will be forwarded to you for your review as well. I have requested his CT scan and his MRI scan for review. Sincerely, Rebecca Hoang MD 04 14 PM - Rebecca Hoang MD mn Dictation ID: [id number] cc: Kwadwo Wall DO, [facility] [address] [place] [address] Deangelo Scott MD, [facility] Internal Medicine [address] [place] [address] * Rebecca Hoang MD - 04/10/2015 1554 EST DIVISION OF OTOLARYNGOLOGY CONSULTATION 04/10/2015 CHIEF COMPLAINT: dizziness, neck pain, headaches, hearing loss HPI: The patient is a 50-year-old white male who is referred in consultation by Dr Wall for evaluation of vertigo. The patient reports initial onset of vertigo in November of this year. 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 He states that even when he was lying still he noted rotary vertigo. Since that time, he has had multiple episodes of vertigo. Over the past week, he has gone a full week without symptoms. However, he is starting with unsteadiness again today. He states that the episodes would occur up to 2 times per week lasting for a day leanna half at a time. He describes having nausea, vomiting, rotary vertigo and a fluttering sensation in his right eye. He states that his symptoms are associated with headache and neck pain. He describes having pain across his shoulders and extending up into his head. He states that the headaches and neck pain have increased recently. He denies having any associated aural pressure, or tinnitus with the episodes. The dizziness is not provoked by visual stimulation, and he denies sensitivity to light. He has a history of a concussion in his 20s. He also states that he has had trauma to his neck while participating in [employer] in his 20s. He has a history of recurring otitis externa, but he denies a history of otologic surgery. 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 He states that his left ear has always been his poorer hearing ear. He has never been able to use a telephone on the left side. He was wearing hearing aids throughout his grade schoolyears and through his adulthood. However, he stopped wearing a hearing aid on the left side approximately 9 years ago. He has rare episodes of tinnitus unrelated to the dizziness. He has noted a popping sound in the right ear also, which is not associated with episodes of vertigo. He reportedly hadan MRI scan and CT scan. However, those results are not available for review. He also reportedly has had autoimmune testing, which also is not available for review. The dizziness is not provoked withcoughing, laughing or straining. He does notice that extending his neck will contribute to a sense of dizziness. There is no associated near syncope or chest pain. He has palpitations that can occur at any time and not necessarily related to the episodes of vertigo. He has had at times numbness andtingling in both arms and hands with the episodes of vertigo, but also with the episodes of neck pain and headache. He has worn glasses for 8 to 10 years and has had new glasses fit recently without change in his symptoms. Past Medical History Diagnosis Date ??? Hiatal hernia ??? Migraines ??? Congenital hearing loss of both ears Past Surgical History Procedure Laterality Date ??? Tonsillectomy No current outpatient prescriptions on file. No current facility-administered medications for this visit. Allergies Allergen Reactions ??? Codeine Nausea Only History reviewed. No pertinent family history. History Social History ??? Marital Status: Single Spouse Name: N/A Number of Children: N/A ??? Years of Education: N/A Occupational History ??? Disabled Social History Main Topics ??? Smoking status: Never Smoker ??? Smokeless tobacco: Never Used ??? Alcohol Use: No Review of systems: Positive for severe headaches, blurred vision, muscle pain, and numbness in both arms and hands. Department of Otolaryngology PHYSICAL EXAMINATION CONSTITUTIONAL: APPEARANCE: The patient appears alert, cooperative, and comfortable. ABILITY TO COMMUNICATE / VOICE: Normal HEAD AND FACE: SALIVARY GLANDS: Submandibular and Parotid glands are normal bilaterally FACIAL STRENGTH: Intact and symmetrical bilaterally EARS, NOSE, MOUTH AND THROAT: OTOSCOPY: Right external auditory canal: patent and non-inflamed Left external auditory canal: patent and non-inflamed Right tympanic membrane: intact and normally mobile without retraction, perforation or effusion, negative fistula test Left tympanic membrane: intact and normally mobile without retraction, perforation or effusion, negative fistula test NOSE: normal turbinates and mucosa: septum in midline LIPS, TEETH & GUMS: normal for age ORAL CAVITY & OROPHARYNX: normal HYPOPHARYNX & PHARYNGEAL ROBERT: Not examined LARYNX: Not examined NECK: GENERAL: Supple, no asymmetry or crepitus, trachea midline THYROID: Not examined LYMPHATIC: CERVICAL LYMPH NODES: No pathologic cervical lymphadenopathy noted Eyes: no spontaneous nystagmus, no LORENA Finger to nose performed without dysmetria No dysdiadochokinesia Romberg negative Tandem gait performed without difficulty Hallpike testing negative. Supine head right and left also negative. DATA REVIEW: Audiogram from [facility] dated 01/15/2015 reveals a severe to profound SNHL bilaterally. Word recognition was 60% on the Right and unable to be tested on the Left. ASSESSMENT: Congenital bilateral SNHL Recurring episodes of vertigo lasting greater than one day at a time PLAN: The patient was informed that his symptoms are not clearly consistent with an otologic disorder. The episodes of vertigo lasting for over a day at a time are not consistent with Meniere disease. Furthermore, he is not noticing any increased tinnitus or aural pressure with the episodes. I have, however, recommended VNG testing. I will send a letter to the patient with the results of this testing. He has been found to have abnormal autoimmune testing, and rheumatologic evaluation should be considered. Furthermore, the patient is having significant neck and shoulder pain. This may require a formal evaluation, especially in light of the arm and hand numbness. Hallpike testing today was negative. It is unlikely that his symptoms are consistent with cervical vertigo. Furthermore, although he ishaving headaches, he is not describing sensitivity to light or provocation of his symptoms with visual stimuli, making vestibular migraine less likely. At the time of this cardiovascular tech, his CT and MRI have been imported to the electronic radiology system. There is no evidence of IAC or CPA lesion. Rebecca Hoang MD CC: Primary Care Provider: Deangelo Scott [address] [facility] [address] Referring Provider: Kwadwo Wall [address] [place] [address] documented in this encounter Plan of Treatment Not on file documented as of this encounter Visit Diagnoses Diagnosis Dizziness and giddiness- Primary documented in this encounter Care Teams Travel Ticketing Reviewer Relationship Specialty Start Date End Date Deangelo Scott MD PCP - General 04/16/09 documented as of this encounter
--- OUTSIDE RECORDS SUMMARY | 2023-12-08 13:42 | XMS_ITS | Encounter Summary ---
Author Organization [facility] Address [address] [place] [address] Care Team Providers Care Supervisor Tank House Name Role Phone Deangelo Scott MD Primary Care Provider Unav ailable Encounter Details Date Type Department Care Team (Late st Contact Info) Description 06/24/2022 Lab Requisition [facility] Pathology & Laboratory Medicine - [facility] [address] [place] [address] Outr Resulting Lab, Provider Social History Tobacco Use Types Packs/Day Years [...] No 04/10/2015 documented as of this encounter Plan of Treatment Not on file documented as of this encounter Procedures Procedure Name Priority Date/Time Associated Diagnosis Comments PSA TOTAL, DIAGNOSTIC Routine 06/24/2022 11:30 EST documented in this encounter Results * PSA TOTAL, DIAGNOSTIC (06/24/2022 11:30 EST) PSA 1.0 <=3.5 ng/mL 06/24/2022 23:26 EST [facility] Blood VENOUS BLOOD / Unknown 06/24/2022 11:30 EST 06/24/2022 22:23 EST Narrative [facility] - 06/24/2022 23:26 EST NOTE: Serum PSA concentration should not be interpreted as absolute evidence for the presence or absence of malignant disease. Assayed on [employer] XPT using chemiluminescent technology.??Values obtained by using different assay methods cannot be used interchangeably. Provider Outr Resulting Lab CHEMISTRY & BLOOD GAS ORDERABLES [facility] [address] [place] [address] documented in this encounter Visit Diagnoses Not on filedocumented in this encounter Care Teams Supervisor Tank House Relationship Specialty Start Date End Date Deangelo Scott MD PCP - General 04/16/09 documented as of this encounter
--- OUTSIDE RECORDS SUMMARY | 2023-12-08 13:42 | XMS_ITS | Encounter Summary ---
Author Organization [facility] Address [address] [place] [address] Care Team Providers Care Proof Coin Collector Name Role Phone Deangelo Scott MD Primary Care Provider Unav ailable Encounter Details Date Type Department Care Team (Late st Contact Info) Description 03/25/2016 Results Only [facility] [phone] Juan Nye, DO [address] [facility] [address] [place], [place] [id number] Social History Tobacco Use Types Packs/Day Years [...] Date/Time Associated Diagnosis Comments SURGICAL PATHOLOGY Routine 03/25/2016 18 :28 EST documented in this encounter Results * SURGICAL PATHOLOGY (03/25/2016 18:28 EST) Pathology Report: SURGICAL PATHOLOGY REPORT Reports generated via electronic interface contain original data; however they are lacking the format of the original report. Caution should be taken when reading/interpret ing unformatted reports. Name: ? REBECCA MCGHEE ? Accession #: ? [id number] ? : ? 1965 (Age: 50) ??M ? Collect Date: ? 03/25/2016 ? Location: ? [facility] ? Receive Date: ? 03/25/2016 ? Provider: JUAN NYE DO Copy to: DEANGELO SCOTT MD ? Final Pathologic Diagnosis: A. ??DUODENUM, BIOPSY: - Erosive peptic duodenitis. B. ??STOMACH, ANTRUM, BIOPSY: - Reactive (chemical) gastropathy. C. ??ESOPHAGUS, DISTAL, BIOPSY: - Squamous mucosa with no specific pathologic features. D. ??ESOPHAGUS, PROXIMAL, BIOPSY: - Squamous mucosa with no specific pathologic features. ?? Document reviewed and electronically signed by: JACKIE KATHLEEN MD Report ??Date: 2016 17:49 By the signature above, the attending physician certifies that he/she has personally conducted a gross and/or microscopic examination of the described specimens and rendered or confirmed the above diagnosis. Specimen(s) Received: A. ??Duodenal bxs B. ??Antrum bxs C. ??Distal esophagus bxs D. ??Proximal esophagus bxs Clinical History: Screening/epigast jocelyn pain Gross Description: A. ?Received in formalin labelled with proper patient identification (initials G, M) and duodenal biopsies are five fragments of lockwood-brown tissue ranging from 0.2-0.4 cm in greatest dimension. The specimens are submitted entirely in A1 and A2. B. ?Received in formalin labelled with proper patient identification (initials G, M) and antrum biopsies are three fragments of lockwood-pink to brown tissue ranging from 0.2-0.3 cm in greatest dimension. The specimens are submitted entirely in B1. C. ?Received in formalin labelled with proper patient identification (initials G, M) and distal esophagus biopsies are two fragments of colorless tissue measuring 0.2-0.3 cm in greatest dimension. The specimens are submitted entirely in C1. D. ?Received in formalin labelled with proper patient identification (initials G, M) and proximal esophagus biopsies are two fragments of lockwood-white firm tissue measuring 0.3-0.46 dimension. The specimens are submitted entirely in D1. KAREN Boyle ([facility]) 03/26/2016 8:48 AM End of Report [facility] 03/25/2016 18:2 8 EST 03/25/2016 18:28 EST Juan Nye DO PATHOLOGY ORDER RICK [facility] [address] [place] [address] documented in this encounter Visit Diagnoses Not on filedocumented in this encounter Care Teams Proof Coin Collector Relationship Specialty Start Date End Date Deangelo Scott MD PCP - General 04/16/09 documented as of this encounter
--- OUTSIDE RECORDS SUMMARY | 2023-12-08 13:42 | XMS_ITS | Encounter Summary ---
Author Organization [facility] Address [address] [place] [address] Care Team Providers Care Documentation Analyst Name Role Phone Deangelo Scott MD Primary Care Provider Unav ailable Encounter Details Date Type Department Care Team (Late st Contact Info) Description 06/08/2015 Documentation Visit [facility] ENT- Main [place] [address] [place] [address] Hao Hoang MD [address] [place] [address] KAREN PAIZ [phone] Social History Tobacco Use Types Packs/Day Years [...] No 04/10/2015 documented as of this encounter Progress Notes * Hao Hoang MD - 06/08/2015 2002 EST [facility] ENT June 08, 2015 Hao Mcghee [address] [place] [address] : 1965 Dear Mr Mcghee: I have reviewed your balance testing, which was performed on 05/31/2015. The testing included threeparts. One to evaluate for any eye movement abnormalities, a second part to perform positional testing, and the third and final portion of the test included instilling warm and cool water in the earsto stimulate the inner ear function. The initial visual testing was normal. The positional testing was also normal. The testing with the warm and cold water in the ears demonstrated appropriate response in both ears; however, there was weakened function on the right side compared to the left side. Although there was a response noted on the right side, it was weaker than the left side. This finding is somewhat odd as your right ear is actually your better hearing ear. Your symptoms related to the episodes, including the duration of the episodes, are not clearly consistent with Meniere's disease. I understand that you are scheduled to see a Neurologist in the near future and this is encouraged. Sincerely, Hao Hoang MD 01 25 PM - Hao Hoang MD mn Dictation ID: [id number] cc: Kwadwo Wall , [facility] [address] [place] [address] The Patient documented in this encounter Plan of Treatment Not on file documented as of this encounter Visit Diagnoses Not on filedocumented in this encounter Additional Health Concerns Infection Onset Date Last Indicated Resolved Time Influenza 04/02/2022 04/02/2022 04/12/2022 22:1 5 EST documented as of this encounter Care Teams Documentation Analyst Relationship Specialty Start Date End Date Deangelo Scott MD PCP - General 04/16/09 documented as of this encounter
--- OUTSIDE RECORDS SUMMARY | 2023-12-08 13:42 | XMS_ITS | Encounter Summary ---
Author Organization [facility] Address [address] [place] [address] Care Team Providers Care Utility Manager Name Role Phone Deangelo Scott MD Primary Care Provider Unav ailable Encounter Details Date Type Department Care Team (Late st Contact Info) Description 04/02/2022 Lab Requisition [facility] Pathology & Laboratory Medicine - [facility] [address] [place] [address] Outr Resulting Lab, Provider Social History Tobacco [...] Procedure Name Priority Date/Time Associated Diagnosis Comments GORAN INFLUENZA A AND B, RSV PCR Routine 04/02/2022 11:15 EST documented in this encounter Results * (ABNORMAL) INFLUENZA A AND B,RSV PCR (04/02/2022 11:15 EST) FLU A RNA Result (FLARES) Positive(A) Negative 04/03/2022 13:57 EST [facility] FLU B RNA Result (FLBRES) Negative Negative 04/03/2022 13:57 EST [facility] RSV RNA Result (RSVRES) Negative Negative 04/03/2022 13:57 EST [facility] ZZUNK ENTIRE NASOPHARYNX / Unknown 04/02/2022 11:15 EST 04/02/2022 21:29 EST Provider Outr Resulting Lab MICROBIOLOGY - GENERAL ORDERABLES Performing Organization Address City/State/[facility] Co de Phone Number [facility] [address] [place] [address] documented in this encounter Visit Diagnoses Not on filedocumented in this encounter Additional Health Concerns Infection Onset Date Last Indicated Resolved Time Influenza 04/02/2022 04/02/2022 04/12/2022 22:1 5 EST documented as of this encounter Care Teams Utility Manager Relationship Specialty Start Date End Date Deangelo Scott MD PCP - General 04/16/09 documented as of this encounter
--- OUTSIDE RECORDS SUMMARY | 2023-12-08 13:42 | XMS_ITS | Encounter Summary ---
Author Organization [facility] Address [address] [place] [address] Care Team Providers Care Air Carrier Inspector Name Role Phone Deangelo Scott MD Primary Care Provider Unav ailable Encounter Details Date Type Department Care Team (Late st Contact Info) Description 04/02/2022 Lab Requisition [facility] Pathology & Laboratory Medicine - [address] [address] Outr Resulting Lab, Provider Social History Tobacco [...] Procedure Name Priority Date/Time Associated Diagnosis Comments ZZCOVID-19 TEST [facility] PCR Today 04/02/2022 11:15 EST COVID-19 TESTING Routine 04/02/2022 11:1 5 EST documented in this encounter Results * COVID-19 TEST [facility] PCR (04/02/2022 11:15 EST) Swab 04/02/2022 11:1 5 EST 04/02/2022 21:29 EST Provider Outr Resulting Lab MICROBIOLOGY - GENERAL ORDERABLES [facility] [address] [place] [address] * COVID-19 TESTING (04/02/2022 11:15 EST) COVID-19 rt-PCR Result Negative Negative 04/03/2022 14:02 EST [facility] Comment: This test has not been FDA cleared or approved. This test has been authorized by FDA under an EUA for use by authorized laboratories. This test has been authorized only for detection of nucleic acid from 2019-nCoV, not for any other viruses or pathogens. This test is only authorized for the duration of the declaration that circumstances exist justifying the authorization of emergency use of in vitro diagnostic tests for detection and/or diagnosis of 2019-nCoV under section 564(b)(1) of Act, 21 U.S.C ?? 360bbb-3(b) (1), unless the authorization is terminated or revoked sooner. Negative results do not preclude 2019-nCoV infection and should not be used as the sole basis for treatment or other patient management decisions. Negative results must be combined with clinical observations, patient history, and epidemiological information. Performed on the Miroiher Fusion instrument Performing Lab [facility] Lab 04/03/2022 14:02 EST [facility] Swab 04/02/2022 11:1 5 EST 04/02/2022 21:29 EST Provider Outr Resulting Lab MICROBIOLOGY - GENERAL ORDERABLES Performing Organization Address City/[facility]/ZIP Co de Phone Number [facility] [address] [place] [address] documented in this encounter Visit Diagnoses Not on filedocumented in this encounter Additional Health Concerns Infection Onset Date Last Indicated Resolved Time Influenza 04/02/2022 04/02/2022 04/12/2022 22:1 5 EST documented as of this encounter Care Teams Air Carrier Inspector Relationship Specialty Start Date End Date Deangelo Scott MD PCP - General 04/16/09 documented as of this encounter
--- OUTSIDE RECORDS SUMMARY | 2023-12-08 13:42 | XMS_ITS | Encounter Summary ---
Author Organization [facility] Address [address] [place] [address] Care Team Providers Care International Relations Professor Name Role Phone Deangelo Scott MD Primary Care Provider Unav ailable Encounter Details Date Type Department Care Team (Late st Contact Info) Description 11/18/2016 Results Only [facility] [phone] Juan Nye, DO [address] [facility] [address] [place], [place] [id number] Social History Tobacco Use Types Packs/Day Years [...] Date/Time Associated Diagnosis Comments SURGICAL PATHOLOGY Routine 11/18/2016 9:34 EDT documented in this encounter Results * SURGICAL PATHOLOGY (11/18/2016 9:34 EDT) Pathology Report: SURGICAL PATHOLOGY REPORT Reports generated via electronic interface contain original data; however they are lacking the format of the original report. Caution should be taken when reading/interpret ing unformatted reports. Name: ? REBECCA MCGHEE ? Accession #: ? [id number] ? : ? 1965 (Age: 51) ??M ? Collect Date: ? 11/18/2016 ? Location: ? [facility] ? Receive Date: ? 11/19/2016 ? Provider: JUAN NYE DO Copy to: DEANGELO SCOTT MD ? Final Pathologic Diagnosis: ----- MASS, BACK, CLINICALLY RIGHT, EXCISION: - ??Mature adipose tissue consistent with lipoma. - ??No atypia or malignancy seen. ___ Document reviewed and electronically signed by: ÁNGEL BENJAMIN MD Report ??Date: 11/21/2016 07:23 By the signature above, the attending physician certifies that he/she has personally conducted a gross and/or microscopic examination of the described specimens and rendered or confirmed the above diagnosis. Specimen(s) Received: Lipoma right back Clinical History: Lipoma Gross Description: ? Received in formalin labelled with proper patient identification (initials G, M) and lipoma right back is an unoriented portion of ovoid yellow adipose tissue (25.9 g, 6.0 x 5.7 x 1.5 cm). The outer surface has a smooth, thin, translucent intact capsule. The outer surface is inked black. The cut surface is yellow homogenous and glistening, without hemorrhage. Community Development Coordinator sections (approximately 10% of the specimen) are submitted as 1 through 3. KAREN Morris ([facility]) 11/19/2016 11:56 AM End of Report [facility] 11/18/2016 9:34 EDT 11/19/2016 9:34 EDT Juan Nye DO PATHOLOGY ORDER RICK [facility] [address] [place] [address] documented in this encounter Visit Diagnoses Not on filedocumented in this encounter Care Teams International Relations Professor Relationship Specialty Start Date End Date Deangelo Scott MD PCP - General 04/16/09 documented as of this encounter
--- OUTSIDE RECORDS SUMMARY | 2023-12-08 13:42 | XMS_ITS | Encounter Summary ---
Author Organization [facility] Address [address] [place] [address] Care Team Providers Care Utility Specialist Name Role Phone Deangelo Scott MD Primary Care Provider Unav ailable Reason for Visit * Reason Comments Dizziness Encounter Details Date Type Department Care Team (Late st Contact Info) Description 05/31/2015 9:00 EST Office Visit [facility] ENT- Main [address] [id number] Unknown, Provider, Audiology, Schedule Ent Dizzy (Primary Dx); Sensorineural hearing loss, bilateral Social History Tobacco Use Types Packs/Day Years [...] as of this encounter Progress Notes * Marcelino Hess MA - 06/07/2015 1358 EST [facility] Patient: Hao MCGHEE. : 1965 Age/Gender: 50 y o male DOS: 05/31/2015 ENT DEPARTMENT PROGRESS/FOLLOWUP NOTE: VIDEONYSTAGMOGRAPHY: Referring Physician: Hao Hoang Indications for Procedure: Mr. Mcghee was seen by Dr. Hao Hoang in consultation for evaluation of vertigo. Initial onset of vertigo is reported as November 2014. He has had multiple episodes of vertigo and imbalance since thattime. Mr. 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 He currently only wears a hearing aid in the right ear; his left ear is the poorer hearing ear. He noted thatthis hearing aid was approximately 8 years old. Hearing test results dated 01-15-2015 were availableat the time of this testing. On the date of this evaluation, he denied recent episodes of vertigo but did report he had a headache. He also noted previous trauma to his neck. He reported that he has an appointment with neurology in the near future. Pre-VNG tympanometry suggested normal middle ear function with normal ear canal volumes bilaterally. Results It was challenging during testing to communicate with Mr. Mcghee due to his hearing loss. This was particularly true when his hearing aid was not in his ear due to the testing situation but also when he was denied vision (VNG goggles closed) as he relies on his lipreading skills for communication. Visual Testing (Gaze, Tracking, Saccades, OPK): There is no gaze nystagmus. When Mr. Mcghee looked to the extreme right during gaze testing, he reported that he experienced a fluttering sensation in his right eye which he has noted before in connection with episodes of vertigo, and seemed to see three dots of light instead of one. When this portion of the gaze testing was repeated, he reported the fluttering did not re-occur. Tracking is within the normal range. Saccade testing is normal. OPK (optokinetic) is symmetrical and within the normal range.. Static Positional Testing (Cervical and Supine): Static positional testing demonstrates no horizontal nystagmus in either the upright or supine positions. Dynamic Positional Testing (Hallpike Maneuvers): There was no nystagmus noted with the Hallpike maneuver. However, the patient did report that his body began to feel warm (as reported in previous episodes) followed by a feeling of mild nausea. He denied any feeling of dizziness. This feeling was more noticeable to him with the Hallpike right versus Hallpike left (Hallpike right was performed first). Bithermal Caloric Tests: Appropriate direction-beating horizontal nystagmus is noted for both cool and warm water irrigations. The patient reported experiencing subjective dizziness for all caloric irrigations. He reported a significant difference in the nature of the subjective vertigo between ears, noting the left ear response was slightly stronger. With right ear irrigation, the vertigo had a ???delayed start?? . In the left ear, the vertigo started ???right away?? and tracings did show beginning beats of nystagmus in the left ear before the irrigation was complete. Mr. Mcghee did not feel that there was any difference in the way the water felt in either ear as the irrigation was performed. There is significant Unilateral Weakness (34% right), however, Directional Preponderance (10% left)is not significant in this study. Impressions: Abnormal VNG study suggests a mild unilateral weakness in the right ear which is likely to be peripheral. This is not a case of hypofunction in the right ear as the total right ear response is withinthe normal range. Marcelino Hess M.A., [facility] Clinical Parole Agent documented in this encounter Plan of Treatment Not on file documented as of this encounter Visit Diagnoses Diagnosis Dizzy- Primary Dizziness and giddiness Sensorineural hearing loss, bilateral documented in this encounter Care Teams Utility Specialist Relationship Specialty Start Date End Date Deangelo Scott MD PCP - General 04/16/09 documented as of this encounter
--- OUTSIDE RECORDS SUMMARY | 2023-12-08 13:42 | XMS_ITS | Referral Summary ---
Author Organization [facility] Address [address] [place] [address] Care Team Providers Care Master Barber Name Role Phone Deangelo Scott MD Primary Care Provider Unav ailable Allergies Active Allergy Reactions Criticality Noted Date Comments Codeine Nausea Only Medium 04/10/2015 Medications No known medications Social History Tobacco Use Types Packs/Day Years Used Date Smoking Tobacco: Never Smokeless Tobacco: Never Alcohol Use Standard Drinks/Week Comments No 0 (1 standard drink = 0.6 oz pur e alcohol) Sex and Gender Information Value Date Recorded Sex Assigned at Not on file Gender Identity Not on file Sexual Orientation Not on file Functional Status Functional Status Response Date of [...] concentrating, remembering, or making decisions? No 04/10/2015 Plan of Treatment Not on file Care Teams Master Barber Relationship Specialty Start Date End Date Deangelo Scott MD PCP - General 04/16/09
--- OUTSIDE RECORDS SUMMARY | 2023-12-08 13:42 | XMS_ITS | Encounter Summary ---
Author Organization [facility] Address [address] [place] [address] Care Team Providers Care Lead Consultant Name Role Phone Deangelo Scott MD Primary Care Provider Unav ailable Encounter Details Date Type Department Care Team (Late st Contact Info) Description 04/12/2015 Results Only Imaging [facility] [phone] Unknown, Provider, Social History Tobacco Use Types Packs/Day Years [...] as of this encounter Plan of Treatment Pending Results Name Type Priority Associated Diagnoses Date /Time OUTSIDE IMAGES - CT NEURO Imaging 04/12/2015 12:10 EST OUTSIDE IMAGES - MR NEURO Imaging 04/12/2015 12:10 EST documented as of this encounter Visit Diagnoses Not on filedocumented in this encounter Care Teams Lead Consultant Relationship Specialty Start Date End Date Deangelo Scott MD PCP - General 04/16/09 documented as of this encounter
--- OUTSIDE RECORDS SUMMARY | 2023-12-08 13:42 | XMS_ITS | Encounter Summary ---
Author Organization [facility] Address [address] [place] [address] Care Team Providers Care Lease Administrator Name Role Phone Deangelo Scott MD Primary Care Provider Unav ailable Encounter Details Date Type Department Care Team (Latest Contact Info) Description 11/18/2016 11:46 EDT - 11/18/2016 23:59 EDT Hospital Encounter [address] [address] Unknown, Provider, Discharge Disposition: Home or Self Care Social History Tobacco Use Types Packs/Day Years [...] 04/10/2015 documented as of this encounter Discharge Disposition Disposition Code Departure Means Destination Home or Self Senior Living documented in this encounter Plan of Treatment Not on file documented as of this encounter Visit Diagnoses Not on filedocumented in this encounter Care Teams Lease Administrator Relationship Specialty Start Date End Date Deangelo Scott MD PCP - General 04/16/09 documented as of this encounter
--- NOTE | 2023-12-08 15:30 | ED.GENADUL_ITS ---
Discharge Plan Disposition Patient Disposition: Home Condition: Stable Discharge Details Clinical Impression: Finger laceration Primary Care Provider: Francisca Sawyer ED Provider: Tucker Chun Home Meds and New Rx's Prescriptions: No Action acetaminophen 650 mg tablet extended release 650 mg PO Q8H diazepam 2 mg tablet 1 mg PO QHS PRN (Reason: vertigo, neck mm spasp) Qty: 20 1RF Rx Instructions: HALF Tab qHS PRN vertigo Discharge Instructions Instructions: Laceration Repair With Glue ED Additional Instructions: Steri-Strips should remain in place and will fall off on their own in the next 5 to 7 days. Is a follow-up before that, have you been provided with additional Steri-Strips to use. Try not to soak your hand like in bath water or doing the dishes, it can get wet with handwashing or showering Discharge Data Discharge Date/Time-TO BE ENTERED AT DEPARTURE: 12/08/23 13:46 HPI General Date/Time Provider Initiated Documentation: 12/08/23 13:41 . Limitations to Documentation: other (hearing impaired, reads lips) . Information obtained by: patient . HPI Narrative: 58-year-old gentleman with out significant past medical history presents for evaluation of right index finger injury. Reports just prior to arrival he was doing some sawing when the blade kicked and hit his finger. He reports a small injury over his right index finger knuckle. The patient reports that there was initially some bleeding, but that he applied pressure and the bleeding stopped. Denies any pain, sensory loss or difficulty moving his finger Related Data Home Medications ?Medication ?Instructions ?Recorded ?Confirmed acetaminophen 650 mg 650 mg PO Q8H 06/17/22 12/08/23 tablet,extended release diazepam 2 mg tablet 1 mg (1/2 x 2 mg) PO QHS PRN 10/30/23 12/08/23 vertigo, neck mm spasp #20 tabs Previous Rx's ?Medication ?Instructions ?Recorded diazepam 2 mg tablet 1 mg (1/2 x 2 mg) PO QHS PRN 10/30/23 vertigo, neck mm spasp #20 tabs Allergies Allergy/AdvReac Type Severity Reaction Status Date / Time codiene AdvReac Mild Other (See Uncoded 12/08/23 13:32 Comment) General Stated Complaint: Laceration GWENDOLYN: 3 Exam Narrative Exam Narrative: Review of Systems: All systems reviewed & are unremarkable except as noted in HPI and below Well-developed, no acute distress NCAT PERRL, normal conjunctiva RRR Unlabored respiratory effort Nondistended abdomen Right index finger with 1 cm laceration on the dorsal surface over the PIP, superficial, not tendon or bone exposure, full range of motion in all distributions, not actively bleeding No rashes or lesions. no focal neurologic deficits Appropriate mood and affect Course Vital Signs Vital signs: Vital Signs Temperature 37.3 C 12/08/23 13:08 Pulse 79 12/08/23 13:08 Respiratory Rate 18 12/08/23 13:08 Pulse Oximetry 97 12/08/23 13:08 Temperature 37.3 C 12/08/23 13:08 Pulse 79 12/08/23 13:08 Respiratory Rate 18 12/08/23 13:08 Respiratory Effort Normal, Non-Labored 12/08/23 13:32 Pulse Oximetry 97 12/08/23 13:08 Oxygen Delivery Method Room Air 12/08/23 13:08 Oxygen Flow Rate 0 12/08/23 13:08 Pain Level 2 12/08/23 13:08 Procedures Laceration Laceration 1: Site: upper extremity Side (If applicable): right Size (cm): 1 Description: linear Depth: simple, single layer Pre-repair: wound explored and irrigated extensively Skin layer closed with: other (Steri-Strip) Medical Decision Making Emergent evaluation of finger laceration. The wound is fairly superficial. There is no bony or tendon involvement, full range of motion I do not suspect any internal derangement of the finger. No noted foreign body. Wound was irrigated. Tetanus is up-to-date. Discussed repair options with the patient and no it is over the knuckle, I did offer sutures as this would likely be the most effective form of closure however the patient declines and would prefer Steri-Strips. I have applied a few Steri-Strips which should work well given the superficial nature of the wound. Wound care discussed with patient and return precautions advised. Signs of infection discussed with the patient Quality:SDOH Health Related Social Needs: No Data to Display PFSH All Active Problems Finger laceration (Acute) Hx of gastroesophageal reflux (GERD) (Acute) No-show for appointment (Acute) COVID-19 virus infection (Acute) Vertigo (Acute 01/03/15) Nausea (Acute) Acute tear of posterior horn of medial meniscus (Acute ~09/18/22) Rupture of right biceps tendon (Acute ~12/05/22) Biceps tendon tear (Acute) Left knee pain (Acute) Coccygeal pain, chronic (Acute) Dyspnea on minimal exertion (Acute) Other dyspnea and respiratory abnormality (Acute) Urinary anomaly (Acute) Stenosis of cervical spine (Acute) with possible radiculopathy Hypertension (Chronic) Neck muscle strain (Acute) acute on chronic .. Hx relief with PT Degenerative joint disease (Chronic 05/04/15) XR (05/2021) re-confirms stenosis @ C4-5 through C6-7 .. of cervical spine 05/04/15. Neg CTA head/neck (2018). MRI DJD 2015 initial PT eval at [facility] 06/23/17 Numbness and tingling of left hand (Acute) wrist --> elbow (forearm), cubit tunn? cervical radiculopathy? fle Radiculopathy due to disorder of intervertebral disc (Acute) Left arm tingling, with painful numbness @ night.. Generalized postprandial abdominal pain (Acute) Family history of ASCVD (arteriosclerotic cardiovascular disease) (Acute) Fa (DC). Mo Quad Bypass (Fall 2020). Diastasis recti (Acute) Dizziness (Acute) Long Hx, pronounced @ flexion (03/2020) .. relieved with small dose diazpm. Migraine (Acute 06/13/11) Lumbar strain (Acute) Spasm of muscle of lower back (Acute) Gastroesophageal reflux disease with esophagitis (Acute) EGD Delilah 04/12/09 esophagitis, GE reflux GERD (gastroesophageal reflux disease) (Chronic) Diaphragmatic hernia (Acute 06/13/11) s/p surgery, with mesh.. Pt wonders if hernia repair/mesh is associated with the nausea/dizziness/near-syncope sensations he has increasingly been having .. 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 Mazariegos), but that it needs to be reviewed carefully. Mild (?) but could cause future problems per pt recollection. 12/2018 Parapelvic renal cyst Microscopic hematuria Anxiety about health Erectile dysfunction Mixed hyperlipidemia (04/30/15) Mass of soft tissue (07/02/09) ? lipoma; left lumbar, subcutaneous; reports present since childhood; documented on [facility] visit 07/02/09. Generalized anxiety disorder (06/27/16) failed paroxetine 03/2016; responds to Diazepam Surgical History Repair of umbilical hernia (11/18/16) Dr Mazariegos, [facility] Excision, Lipoma (11/18/16) RIGHT BACK EGD - [facility] (03/25/16) Colonoscopy - [facility] (03/25/16) Arthrocentesis, intermediate joint Family History Mother Diabetes 2/2 sx for pancreatic CA Pancreatic cancer Heart disease open heart surgery 2020, heart pacer prior to Father , Surgical complicatio at age 69. Essential hypertension Heart disease Hernia from complications of hernia surgery at [facility] Sister Substance abuse Alcoholism Social History Smoking/Tobacco Use Status: Never Smoking risk assessment performed?: Yes Alcohol Intake: never Drug use: Never Substance use type: does not use Adopted: No Caregiver/Support person: No Foster care: No Household members: children Housing: apartment Number of Children: 2 number of grandchildren: 1 Communication Needs: Hard of Hearing current occupation: Retired Pets and animals: No Sexually active: No Do you think of yourself as: straight/heterosexual Current gender identity: male What is your relationship status?: refused to answer How often do you talk on the phone with friends or family?: decline to answer How often do you get together with friends or relatives?: decline to answer Do you belong to any clubs or organized social groups?: no Panel score (0-1 are the most socially isolated patients): 0 What type of physical activity do you participate in: walking, independent ambulation and swimming Seatbelt use: never Helmet use: No Drive intox or ride w/intox dray driver: No Do you feel safe at home: Yes Do you feel safe in your relationship?: Yes
== END 2023-12-08 13:46 | disposition home or self-care (01) ==
PROVIDERS: Emergency Provider Emergency Medicine; PCP Student in an Organized Health Care Education/Training Program
DX: S61.210A Laceration without foreign body of right index finger without damage to nail, initial encounter (principal); W26.8XXA Contact with other sharp object(s), not elsewhere classified, initial encounter
CPT/HCPCS: 99282

== ENCOUNTER 2024-09-15 11:58 | Outpatient (CLI) | payer MEDICARE, SELFPAY ==
--- NOTE | 2024-09-15 11:45 | DI.RAD_ITS ---
Exam(s) XR CHEST 2V PA LATERAL EXAM: XR CHEST 2V PA LATERAL CLINICAL HISTORY: LLL rales, pneumonia due to adenovirus, dyspnea/resp abnl, J12.0, R06.09 TECHNIQUE: 2D digital imaging was performed. Two views. COMPARISON: CR,XR XR PORTABLE CHEST AP from 03/07/2023 FINDINGS: HEART: Normal size. Aorta: Not dilated. PULMONARY VASCULATURE: Normal. MEDIASTINUM: Unremarkable. LUNGS: Clear. PLEURAL SPACE: No pleural effusion or pneumothorax. BONE:Unremarkable for age. SOFT TISSUES: Unremarkable. IMPRESSION: No acute abnormality. DATA REPOSITORY: RADIATION DOSE DELIVERED:
== END 2024-09-15 12:18 ==
LOC: DI 11:58
PROVIDERS: PCP Nurse Practitioner Family; Visit Provider Family Medicine
DX: J12.0 Adenoviral pneumonia (principal); R06.09 Other forms of dyspnea; R09.89 Other specified symptoms and signs involving the circulatory and respiratory systems
CPT/HCPCS: 71046

== ENCOUNTER 2025-03-21 01:43 | Outpatient (CLI) | payer MEDICARE, SELFPAY ==
[2025-03-21 10:46] LABS: TSH (W/Ref FT4) 3.30 uIU/mL (0.55-4.78)
[2025-03-21 10:49] LABS: Cholesterol 228 mg/dL (<200); HDL Cholesterol 44 mg/dL (>40)
== END 2025-03-21 01:44 | disposition home or self-care (01) ==
LOC: LBO 01:43
PROVIDERS: PCP Nurse Practitioner Family; Visit Provider Nurse Practitioner Family
DX: I65.29 Occlusion and stenosis of unspecified carotid artery (principal); R13.10 Dysphagia, unspecified
CPT/HCPCS: 36415; 80061; 84443

== ENCOUNTER → 2025-04-11 00:17 | Outpatient (CLI) | payer MEDICARE, SELFPAY ==
--- NOTE | 2025-04-11 07:15 | DI.US_ITS ---
Exam(s) US THYROID EXAM: US THYROID CLINICAL HISTORY: INTERMITTENT NECK SWELLING, DYSPHAGIA,R13.10. TECHNIQUE: Ultrasound thyroid performed using standard protocol. COMPARISON: US US THYROID from 01/31/2019 FINDINGS: ISTHMUS: Within normal limits. RIGHT LOBE: Size: 5.1 x 2.6 x 2.3 cm Echogenicity: Normal. Vascularity: Normal. Nodules: None. LEFT LOBE: Size: 4.2 x 2.5 x 1.4 cm Echogenicity: Normal. Vascularity: Normal. Nodules: None. There is a 0.9 cm cyst in the left lobe. OTHER FINDINGS: None. IMPRESSION: Unremarkable thyroid ultrasound. There are no suspicious thyroid nodules. DATA REPOSITORY:
== END ==
LOC: DI 00:17
PROVIDERS: PCP Nurse Practitioner Family; Visit Provider Nurse Practitioner Family
DX: I65.29 Occlusion and stenosis of unspecified carotid artery (principal); H90.5 Unspecified sensorineural hearing loss
CPT/HCPCS: 76536